=== PATIENT | female | born 2000 | race Caucasian/White ===

== ENCOUNTER 2019-10-21 20:56 | Observation (INO) | payer OTHER, SELFPAY ==
[2019-10-21 22:23] VITALS: BP 120/64; PULSE 83
[2019-10-21 23:05] LABS: Add Urine Microscopic? YES; Appearance Urine Cloudy (Clear); Bacteria Urine 1+ /hpf; Bilirubin Urine Negative (Negative); Blood Urine Negative (Negative); Calcium Oxalate Crystals Urine Present /hpf; Color Urine Yellow (Yellow); Glucose Urine UA Negative (Negative); Ketones Urine Negative (Negative); Leukocyte Esterase Ur Negative LEU/UL (Negative); Mucus Urine Rare /lpf; Nitrate Urine Negative (Negative); Protein Urine Negative (Negative); RBC Urine 0-2 /hpf (0-2); Specific Grav Ur 1.017 (1.001-1.035); Squamous Epithelial Cell Urine Occasional /hpf (Few)
--- NOTE | 2019-10-26 17:44 | PM.OBTRLD ---
OB - Triage/Final Diagnosis Visit Information Date of evaluation: 10/21/19 Reason for evaluation: threatened labor Evaluation Laboratory results: Laboratory Tests 10/21/19 22:24 Urine Color Yellow Urine Appearance Cloudy H Urine pH 6.0 Ur Specific [place] 1.017 Urine Protein Negative Urine Glucose (UA) Negative Urine Ketones Negative Ur Blood (Man) Negative Urine Nitrate Negative Urine Bilirubin Negative Urine Urobilinogen 2.0 H Leukocyte Esterase Rfl Negative Urine RBC 0-2 Urine WBC 4-6 H Ur Squamous Epith Cells Occasional Calcium Oxalate Crystal Present Urine Bacteria 1+ H Urine Mucus Rare
== END 2019-10-21 23:50 | disposition home or self-care (01) ==
PROVIDERS: Advanced Practice Midwife; Admitting Provider Obstetrics & Gynecology; Visit Provider Obstetrics & Gynecology
DX: O26.892 Other specified pregnancy related conditions, second trimester (principal); R10.9 Unspecified abdominal pain; Z3A.20 20 weeks gestation of pregnancy
CPT/HCPCS: 81001; G0378; G0379

== ENCOUNTER 2020-02-03 10:05 | Observation (INO) | payer OTHER, SELFPAY ==
[2020-02-03] VITALS (67 sets, daily range): BP systolic 121–133; BP diastolic 72–88; PULSE 86–119; O2SAT 99–100; BMI 34.0
--- NOTE | 2020-02-03 11:19 | OBADM ---
This patient, Niki Holly, admitted to the OB room OB Post 113 for observation. Patient/family oriented to hospital policies and general routines including ID bracelet, bed and alarms, visiting hours, pain management, procedures, bathroom and other care routines, personal items, smoking policy, room service/diet, and visiting hours. Patient/Family are encouraged to report perceived risks to care and to ask questions if they do not understand what they are told or what they should do.
--- NOTE | 2020-02-03 11:19 | PC.NURSE ---
1051-'s office called for consult, they will call the SR RISK MANAGEMENT CONSULTANT sediment remediation consultant.
--- NOTE | 2020-02-03 11:24 | PC.NURSE ---
Elma BRUNNER for called for information on pt. Stated someone from their office will be by today to evaluate pt.
--- NOTE | 2020-02-03 11:40 | PC.NURSE ---
1005-Pt came in from home stating she has had a headache off and on since yesterday, she took one dose of tylenol yesterday morning and has c/o elevated heart rate up to the 140's that last for up to 5 minutes at a time.
--- NOTE | 2020-02-03 11:47 | PC.NURSE ---
1036- called,informed pt came in c/o headache and elevated heart rate intermittently. Orders received to give fioricet for headache and consult cardiology.
--- NOTE | 2020-02-03 13:10 | ECG_ITS ---
Measurements Intervals [place] Rate: 101 P: 60 RI: 161 QRS: 75 QRSD: 85 T: 2 QT: 332 QTc: 431 Interpretive Statements SINUS TACHYCARDIA INCOMPLETE RIGHT BUNDLE BRANCH BLOCK MINIMAL Q WAVES- INFERIOR LEADS BORDERLINE ST-T WAVE ABNORMALITY- ANT/INF LEADS BORDERLINE ECG Electronically Signed On 02-03-2020 14:29:24 WATERSHED TENDER by Taj Arredondo D.O.
--- NOTE | 2020-02-03 13:20 | PC.NURSE ---
Dr. Sam at bedside evaluating pt. Orders received.
[2020-02-03 13:50] LABS: Hematocrit 30.4 % (37.0-47.0); Hemoglobin 9.9 g/dL (12.0-15.0); Mean Corpuscular HGB Conc 32.6 g/dl (32-36); Mean Corpuscular Hemoglobin 29.6 pg (26-34); Mean Platelet Volume 10.2 fl (7.4-10.4); Platelet Count Result 269 k/mm3 (150-375); Red Blood Count 3.34 M/mm3 (4.2-5.4); Red Cell Distribution Width 13.1 % (11.5-14.5); White Blood Count 14.9 K/mm3 (4.5-10.0)
--- NOTE | 2020-02-03 14:20 | PC.NURSE ---
Bedside EKG performed.
--- NOTE | 2020-02-03 14:22 | PM.CNCAR ---
Assessment and Plan Additional Plan 19-year-old female with: Occasional palpitations likely has symptomatic sinus tachycardia as a functional consequence of her 3rd trimester of . Cardiac physical exam is unremarkable other than flow murmur related to a increased cardiac output. Twelve lead electrocardiogram is unremarkable. She is mildly anemic as mentioned above. At this point I do not feel compelled to place her on a beta-bhumika in this situation. If she continues to have symptoms like this after delivery of her child then further monitoring of her rhythm should be considered. At this point there are no additional cardiac recommendations and she can be safely discharged back to home. Santino Sam MD [facility] History of Present Illness History of Present Illness Consult date/time: 02/03/20 14:22 Reason For Visit: headaches,elevated hr,contractions Narrative: This is a 19-year-old female that I am seeing at the request of the OB service this afternoon because of tachycardia. Patient is currently 35 weeks gestation with her 1st child who she is expecting a boy a to be born in the next several weeks. She has not had any cardiac problems in the past and actually has been enjoying relatively good health she does not have any ongoing chronic medical problems of which she is been made aware. Specifically denies any history of hypertension diabetes hyperthyroidism or significant anemia. She states that she has been having symptoms where she will notice this tachycardia and palpitations. She has an [employer] watch that records her heart rate but not an EKG rhythm strip. She has times when her heart rate is in the 120-140 beats per minute according her Apple watch that created her to have concern is so she was admitted to the Ob room this morning for observation. She has not had any significant symptoms since being hot in room 113. The vital signs are chart show her heart rate to be in the 90s to the whole time she has been here for the last several hours. I had a knee electrocardiogram run which demonstrates sinus tachycardia, otherwise a normal tracing. CBC shows her to be mildly anemic with a hemoglobin of 9.9 g. 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 Review of Systems Constitutional: Constitutional: Reports no additional constitutional complaints Eyes: Eyes: Reports no additional eye complaints ENT: Reports system reviewed and no additional complaints, except as documented Cardiovascular: Cardiovascular: Reports as per HPI Comments: Occasional episodes of palpitations and tachycardia Respiratory: Respiratory: Reports no additional respiratory complaints Gastrointestinal: Gastrointestinal: Reports no additional gastrointestinal complaints Musculoskeletal: Musculoskeletal: Reports no additional musculoskeletal complaints Neurologic: Reports system reviewed and no additional complaints, except as documented Hematologic/Lymphatic: Hematologic/Lymphatic: Reports no additional hematologic/lymphatic complaints Allergic/Immunologic: Allergic/Immunologic: Reports no additional allergic/immunologic complaints Meds Home Medications and Allergies Allergies Allergy/AdvReac Type Severity Reaction Status Date / Time No Known Allergies Allergy Verified 02/03/20 10:53 Vital Signs Vital Signs - 24 hr 02/03/20 10:26 02/03/20 10:30 02/03/20 10:31 Pulse Rate 107 H Blood Pressure 128/76 Pulse Oximetry 99 100 02/03/20 10:36 02/03/20 10:41 02/03/20 10:45 Pulse Rate 100 Blood Pressure 133/88 Pulse Oximetry 100 100 02/03/20 10:46 02/03/20 10:51 02/03/20 10:56 Pulse Rate Blood Pressure Pulse Oximetry 100 100 100 02/03/20 11:00 02/03/20 11:01 02/03/20 11:06 Pulse Rate 92 Blood Pressure 131/74 Pulse Oximetry 100 99 02/03/20 11:11 02/03/20 11:15 02/03/20 11:16 Pulse Rate 96 Blood P
--- NOTE | 2020-02-26 19:37 | PM.DS ---
DS: Admitting Diagnosis Admitting Diagnosis Admitting Diagnosis: tachycardia, DS: Discharge Diagnosis Discharge Diagnosis (1) Tachycardia: Code(s): R00.0 - Tachycardia, unspecified Status: Acute (2) Third trimester : Code(s): Z34.93 - Encounter for supervision of normal , unspecified, third trimester Status: Acute DS: Summary Hospital Course Reason for hospitalization: tachycardia, 3rd trimester Hospital Course: patient was admitted to Labor and delivery for tachycardia, monitoring, and cardiac consultation. She was seen by Cardiology. She was discharged within 24 hours Status at Discharge Functional status at discharge: independent ambulation Time Spent with Patient Time attestation: Total time spent providing and/or coordinating discharge services: Time spent: Less than 30 minutes Discharge Plan Discharge Consulting providers: Bandar Armstrong ; Taj Arredondo ; Santino Sam Discharging Clinician: Devan Pate Patient Disposition: Home, Self-Care Activity: as tolerated Diet: regular Discharge Instructions: OB ANTEPARTUM DISCHARGE INSTRUCTIONS This information is given to help you properly care for yourself at home after your discharge from the hospital. Follow these instructions until your doctor tells you otherwise. DIET: Eat Three Well Balanced Meals per Day Additional Diet Instructions: ACTIVITY: As Tolerated Additional Activity Instructions: RETURN TO LABOR AND DELIVERY IF YOU HAVE: Any Change In Baby's Normal Movement Pattern Any Leakage of Fluid Contractions 3-5 Minutes Apart with Increasing Intensity Vaginal Bleeding Additional Reasons to Return to Labor and Delivery: Contractions may feel like abdominal pain, tightening, cramping, pressure, back ache, or thigh ache. 24 Hour Urine Collection: Continue 24 hour urine collection until at . When collection is completed, return specimen to the [facility]. See handout for 24 hour urine collection. OTHER INSTRUCTIONS: FOLLOW-UP CARE: Keep Next Scheduled Appointment To see in/on Valuables released to patient or family? N/A Medications from home returned to patient? N/A I Acknowledge Receipt of and Understand the Above Instructions IF YOU HAVE ANY QUESTIONS REGARDING THESE INSTRUCTIONS, PLEASE CALL [phone]. IF PROBLEMS ARISE, CALL YOUR PROVIDER. IF EMERGENCY CARE IS NEEDED, [facility]S EMERGENCY ROOM IS AVAILABLE 24 HOURS A DAY. Stand Alone Forms: General Discharge Information Follow-up/Referrals: Devan Pate MD [Physician] - Discharge Medications: No Action PNV cmb#95-ferrous fumarate-FA [] 28 mg iron- 800 mcg Tablet 1 tablet PO DAILY RF: 0 polysaccharide iron complex 150 mg iron Capsule 150 mg PO DAILY@0800 Qty: 30 RF: 0 ibuprofen 600 mg Tablet 600 mg PO Q6H PRN (Reason: Cramping) Qty: 30 RF: 0 Date of admission: 02/03/20 10:05 Primary Care Provider: PHYSICIAN,FINANCIAL ADMINISTRATIVE ASSISTANT Admitting Provider: Devan Pate Attending physician on admission: Devan Pate Condition: Stable
== END 2020-02-03 15:28 | disposition home or self-care (01) ==
PROVIDERS: Specialist; Admitting Provider Obstetrics & Gynecology; Visit Provider Obstetrics & Gynecology
DX: O26.893 Other specified pregnancy related conditions, third trimester (principal); R00.0 Tachycardia, unspecified; Z3A.35 35 weeks gestation of pregnancy
CPT/HCPCS: 36415; 85027; 93005; A9270; G0378; G0379

== ENCOUNTER 2020-02-20 11:39 | Outpatient (CLI) | payer OTHER, SELFPAY ==
[2020-02-20 12:15] VITALS: BP 122/82; PULSE 99
[2020-02-20 12:27] LABS: Basophils Percent Auto 0.3 % (0.2-1.2); Eosinophils Absolute Auto 0.1 K/mm3 (0-0.3); Eosinophils Percent Auto 0.9 % (0-4.4); Hematocrit 31.8 % (37.0-47.0); Hemoglobin 10.5 g/dL (12.0-15.0); Immature Granulocyte Absolute 0.25 K/mm3 (0.00-0.031); Immature Granulocyte Percent A 1.8 % (0-0.5); Lymphocytes Percent Auto 14.5 % (18.3-44.2); Mean Corpuscular Hemoglobin 30.3 pg (26-34); Mean Corpuscular Volume 91.9 fl (80-100); Mean Platelet Volume 10.2 fl (7.4-10.4); Monocytes Absolute Auto 0.9 K/mm3 (0.1-0.6); Monocytes Percent Auto 6.3 % (2.6-8.5); Neutrophils Absolute Auto 10.5 K/mm3 (1.3-6.7); Neutrophils Percent Auto 76.2 % (45.5-73.1); Platelet Count Result 275 k/mm3 (150-375); Red Blood Count 3.46 M/mm3 (4.2-5.4); Red Cell Distribution Width 14.4 % (11.5-14.5); White Blood Count 13.8 K/mm3 (4.5-10.0)
[2020-02-20 12:31] VITALS: BP 118/76; PULSE 96
[2020-02-20 12:34] LABS: Creatinine Urine 56.2 mg/dL; Total Protein Urine Random 21 mg/dL; Ur Ttl Prot Creatinine Ratio 0.37 mg/mg (0-0.20)
[2020-02-20 12:36] LABS: Add Urine Microscopic? YES; Amorphous Sediment Urine Few; Appearance Urine Cloudy (Clear); Bacteria Urine 4+ /hpf; Bilirubin Urine Negative (Negative); Blood Urine Negative (Negative); Color Urine Red (Yellow); Glucose Urine UA Negative (Negative); Ketones Urine Negative (Negative); Leukocyte Esterase Ur Negative LEU/UL (NEGATIVE); Mucus Urine Rare /lpf; Nitrate Urine Negative (Negative); Protein Urine Negative (Negative); Specific Grav Ur 1.012 (1.001-1.035); Squamous Epithelial Cell Urine Many /hpf (Few); Urobilinogen Urine Negative mg/dL (<2.0)
[2020-02-20 12:37] LABS: Alanine Aminotransferase 12 U/L (4-35); Albumin Level 3.5 g/dL (3.5-5.1); Alkaline Phosphatase 806 U/L (38-126); Anion Gap 3 mmol/L (8-16); Aspartate Amino Transferase 19 U/L (14-36); Bilirubin,Total 0.2 mg/dL (0.2-1.3); Blood Urea Nitrogen 7 mg/dL (7-17); Calcium 9.5 mg/dL (8.4-10.2); Carbon Dioxide 27 mmol/L (22-30); Chloride 104 mmol/L (98-107); Estimated Glomerular Filt Rate > 60; Glucose 74 mg/dL (65-105); Potassium 4.3 mmol/L (3.4-5.0); Sodium 134 mmol/L (137-145); Uric Acid 4.2 mg/dL (2.5-7.5)
[2020-02-20 12:45] VITALS: BP 123/76; PULSE 94
--- NOTE | 2020-02-20 12:46 | PC.NURSE ---
Jamal Gaona notified of of lab results, BP's and reactive tracing. OK to dc home.
[2020-02-20 13:00] VITALS: BP 122/82; PULSE 99
== END 2020-02-20 12:52 | disposition home or self-care (01) ==
LOC: ANHOBOP 11:43 → ANHOBPP 11:45
PROVIDERS: Visit Provider Obstetrics & Gynecology
DX: R10.11 Right upper quadrant pain (principal)
CPT/HCPCS: 36415; 59025; 80053; 81001; 82570; 84156; 84550; 85025; 87086; 99199

== ENCOUNTER 2020-02-22 13:37 | Inpatient (IN) | payer OTHER, SELFPAY ==
[2020-02-22] VITALS (9 sets, daily range): BP systolic 121–133; BP diastolic 75–95; PULSE 87–120; TEMP 36.4–36.9; BMI 36.8
--- OUTSIDE RECORDS SUMMARY | 2020-02-22 13:44 | XMS_ITS ---
:2000 Author Care Team Providers Name Role Phone Bernardino Pate Primary Care Provider Unavailable Allergies Code Code System Name Reaction Severity Status Onset Fish Containing ? ? Active ? Products Medications Name Status Start Date Stop Date ? ? cephalexin 500 mg capsule Completed ? 2019 nitrofurantoin Completed ? 11/17/2019 monohydrate/macrocrystals 100 mg capsule NuvaRing 0.12 mg-0.015 mg/24 hr vaginal Completed 06/17/19 17 01/11/2018 insert 1 vaginal ring by vaginal route every month leave in place for 3 weeks, remove for 1 week + DHA Active ? Not available Slow Release Iron Active ? Not available Problems Name Status Onset Date Source ? Abnormal Weight Gain Unknown 01/02/[address] Concept Unknown 01/02/2016 History Migration of Central Venous Catheter Unknown 02/20/2016 History Laceration of Upper Arm with Foreign Body Unknown 2015 History Combined Oral Contraceptive - Use Unknown 06/16/2016 History Deep Pain on [place] Unknown 12/22/2017 History Test Negative Unknown 12/22/2017 History Infection Screening Unknown 12/22/2017 History Female Genitalia Finding Unknown 12/22/2017 History Syphilis Test Finding Unknown 12/22/2017 History Unknown 08/25/2019 ? Procedures Date Name Performed by ? 01/31/2016 Removal of Implant Information not ligia manriquez
--- OUTSIDE RECORDS SUMMARY | 2020-02-22 13:45 | XMS_ITS | Encounter Summary ---
:2000 Author Reason for Visit OB visit Assessment and Plan 1. Routine care Discussion Note: None recorded.Patient educational handouts: No information available. Plan of Care Reminders Provider Appointments Ob Routine Christina Clemente, 02/29/2020 CNM 1:00PM ? Ob Routine Татьяна Clemente, 03/07/2020 CNM 1:00PM Lab None ? ? recorded. Referral None ? ? recorded. Procedures None ? ? recorded. Surgeries None ? ? recorded. Imaging None ? ? recorded. Medications Name Start Date ? ? + DHA ? Slow Release Iron ? Medications Administered None recorded. Vitals Height Weight BMI Blood Pressure 5 ft 9 in 235 lbs 34.7 kg/m2 121/80 mm[Hg] Results Lab Results None recorded. Allergies Code Code System Name Reaction Severity Onset Fish Containing ? ? ? Products Problems None recorded. Procedures Date Name Performed by ? 01/31/2016 Removal of Implant Information not avai
--- OUTSIDE RECORDS SUMMARY | 2020-02-22 13:45 | XMS_ITS | Encounter Summary ---
:2000 Author Reason for Visit OB visit 30wks 2days Assessment and Plan 1. Routine care 2. Elevated blood-pressure readi ng without diagnosis of hypertension ? unlisted lab - clnt restri brii - roberto pi panel Discussion Note: None recorded.Patient educational handouts: No information available. Plan of Care Reminders Provider Appointments Ob Routine Christina Clemente CNM 02/29/2020 1:00PM ? Ob Routine Татьяна Clemente CNM 03/07/2020 1:00PM Lab Unlisted Maulik p -[facility] Lab 12/28/2019 [facility] ([facility] Pathologists [facility] ) Referral None ? ? recorded. Procedures None ? ? recorded. Surgeries None ? ? recorded. Imaging None ? ? recorded. Medications Name Start Date ? ? + DHA ? Slow Release Iron ? Medications Administered None recorded. Vitals Height Weight BMI Blood Pressure 5 ft 9 in 233 lbs 34.4 kg/m2 141/87 mm[Hg] Results Lab Results Date Name Specimen Result Interpretation Description Value Range Status Address ? 12/27
--- OUTSIDE RECORDS SUMMARY | 2020-02-22 13:45 | XMS_ITS | Encounter Summary ---
[...] BMI Blood Pressure 5 ft 9 in 223 lbs 32.9 kg/m2 118/77 mm[Hg] Results Lab Results None recorded. Allergies Code Code System Name Reaction Severity Onset Fish Containing ? ? ? Products Problems None recorded. Procedures Date Name Performed by ? 01/31/2016 Removal of Implant Information not avai
--- OUTSIDE RECORDS SUMMARY | 2020-02-22 13:45 | XMS_ITS | Encounter Summary ---
:2000 Author Reason for Visit OB visit OB [id number] EDC 03/05/2020 LMP 05/30/2019 Assessment and Plan Assessment Note Patient is _36__weeks . Dis cussed plan. 1. Routine care Discussion Note: None recorded.Patient [...] BMI Blood Pressure 5 ft 9 in 242 lbs 35.7 kg/m2 135/83 mm[Hg] Results Lab Results None recorded. Allergies Code Code System Name Reaction Severity Onset Fish Containing ? ? ? Products Problems None recorded.
--- OUTSIDE RECORDS SUMMARY | 2020-02-22 13:45 | XMS_ITS | Encounter Summary ---
:2000 Author Reason for Visit OB visit OB [id number] EDC 03/05/2020 LMP 05/30/2019 Assessment and Plan 1. Routine care ? unlisted lab - clnt restri az Partha mejia pi panel Discussion Note: None recorded.Patient educational handouts: No information available. Plan of Care Reminders Provider Appointments Ob Routine Christina Clemente CNM 02/29/2020 1:00PM ? Ob Routine Татьяна Clemente CNM 03/07/2020 1:00PM Lab Unlisted Maulik p [facility] Lab 02/15/2020 [facility] Lab (A [facility] Pathologists [facility] ) Referral None ? ? recorded. Procedures None ? ? recorded. Surgeries None ? ? recorded. Imaging None ? ? recorded. Medications Name Start Date ? ? + DHA ? Slow Release Iron ? Medications Administered None recorded. Vitals Height Weight BMI Blood Pressure 5 ft 9 in 247 lbs 36.5 kg/m2 139/86 mm[Hg] Results Lab Results Date Name Specimen Result Interpretation Description Value Range Status Address ? 02/15/2020 Clnt High Wbc 14.1 3.8-11.5 Final [facility]
--- OUTSIDE RECORDS SUMMARY | 2020-02-22 13:45 | XMS_ITS | Encounter Summary ---
:2000 Author Reason for Visit OB visit OB [id number] EDC 03/05/2020 LMP 05/30/2019 Assessment and Plan Assessment Note Patient is _32__weeks . Dis cussed plan. 1. Routine care [...] BMI Blood Pressure 5 ft 9 in 232 lbs 34.3 kg/m2 131/79 mm[Hg] Results Lab Results None recorded. Allergies Code Code System Name Reaction Severity Onset Fish Containing ? ? ? Products Problems None recorded.
--- NOTE | 2020-02-22 14:14 | LDADM ---
This patient, Niki Holly, was admitted to Labor/Delivery/Recovery 108 on 02/22/20 at 13:37. Plans for labor, pain management and were discussed with patient. Patient/family oriented to hospital policies and general routines including ID bracelet, bed and alarms, visiting hours, pain management, procedures, bathroom and other care routines, personal items, smoking policy, room service/diet and guest tray routines, security routines, and visiting hours. Patient/Family are encouraged to report perceived risks to care and to ask questions if they do not understand what they are told or what they should do. See OBIX for further documentation.
[2020-02-22 14:37] LABS: Basophils Absolute Auto 0.1 K/mm3 (0.0-0.1); Basophils Percent Auto 0.4 % (0.2-1.2); Eosinophils Absolute Auto 0.1 K/mm3 (0-0.3); Hematocrit 30.9 % (37.0-47.0); Hemoglobin 10.2 g/dL (12.0-15.0); Immature Granulocyte Absolute 0.23 K/mm3 (0.00-0.031); Lymphocytes Absolute Auto 1.87 K/mm3 (0.9-3.2); Lymphocytes Percent Auto 16.3 % (18.3-44.2); Mean Corpuscular Hemoglobin 29.9 pg (26-34); Mean Corpuscular Volume 90.6 fl (80-100); Mean Platelet Volume 10.5 fl (7.4-10.4); Monocytes Absolute Auto 0.8 K/mm3 (0.1-0.6); Monocytes Percent Auto 6.9 % (2.6-8.5); Neutrophils Absolute Auto 8.4 K/mm3 (1.3-6.7); Neutrophils Percent Auto 73.4 % (45.5-73.1); Platelet Count Result 256 k/mm3 (150-375); Red Blood Count 3.41 M/mm3 (4.2-5.4); Red Cell Distribution Width 14.3 % (11.5-14.5); White Blood Count 11.5 K/mm3 (4.5-10.0)
[2020-02-22 14:52] LABS: Alanine Aminotransferase 12 U/L (4-35); Albumin Level 3.3 g/dL (3.5-5.1); Alkaline Phosphatase 780 U/L (38-126); Anion Gap 6 mmol/L (8-16); Aspartate Amino Transferase 21 U/L (14-36); Bilirubin,Total 0.3 mg/dL (0.2-1.3); Blood Urea Nitrogen 7 mg/dL (7-17); Calcium 9.4 mg/dL (8.4-10.2); Carbon Dioxide 24 mmol/L (22-30); Chloride 105 mmol/L (98-107); Estimated CRCL calculation 201 ml/min; Estimated Glomerular Filt Rate > 60; Glucose 87 mg/dL (65-105); Sodium 135 mmol/L (137-145); Uric Acid 3.9 mg/dL (2.5-7.5)
[2020-02-22] MEDS: DINOPROSTONE 10 MG VAG INSERT VAGINAL (14:55)
--- NOTE | 2020-02-22 16:15 | WPDOBADMIT ---
Obstetrics - Admit Note Admission Note: record reviewed. No pertinent additions to the history and/or any subsequent changes in the physical findings that are not consistent with the expected course of the were found. MIL for GHTN with elevated alkaline phosphate, cervidil Additions to the history and/or subsequent changes in the physical findings follow. None.
--- NOTE | 2020-02-22 16:42 | WPDANESEPP ---
Anes - Eval Pre Procedure Procedure: labor epidural Date/Time: 02/22/20 16:42 Surgeon: marquise Pre Op Diagnosis: Induction of Labor Patient Data Age: 19 Gender: F Height: 1.75 m Weight: 113 kg Last Vital Signs Temp 36.4 C 02/22/20 15:00 Pulse 93 02/22/20 16:30 BP 124/85 02/22/20 16:30 Allergies Allergy/AdvReac Type Severity Reaction Status Date / Time Fish Containing Products Allergy Itching Verified 02/09/20 13:08 Home Medications Medication Instructions Recorded Confirmed Type PNV cmb#95-ferrous fumarate-FA 1 tablet PO DAILY 02/09/20 02/22/20 History [] Laboratory Tests 02/22/20 02/22/20 02/22/20 14:12 14:12 14:12 WBC 11.5 K/mm3 H K/mm3 (4.5-10.0) RBC 3.41 M/mm3 L M/mm3 (4.2-5.4) Hgb 10.2 g/dL L g/dL (12.0-15.0) Hct 30.9 % L % (37.0-47.0) MCV 90.6 fl fl (80-100) MCH 29.9 pg pg (26-34) MCHC 33.0 g/dl g/dl (32-36) RDW 14.3 % % (11.5-14.5) Plt Count 256 k/mm3 k/mm3 (150-375) MPV 10.5 fl H fl (7.4-10.4) Immature Gran % (Auto) 2.0 % H % (0-0.5) Neut % (Auto) 73.4 % H % (45.5-73.1) Lymph % (Auto) 16.3 % L % (18.3-44.2) [place] % (Auto) 6.9 % % (2.6-8.5) Eos % (Auto) 1.0 % % (0-4.4) Baso % (Auto) 0.4 % % (0.2-1.2) Lymph # (Auto) 1.87 K/mm3 K/mm3 (0.9-3.2) [place] # (Auto) 0.8 K/mm3 H K/mm3 (0.1-0.6) Eos # (Auto) 0.1 K/mm3 K/mm3 (0-0.3) Baso # (Auto) 0.1 K/mm3 K/mm3 (0.0-0.1) Abs Immat Gran (auto) 0.23 K/mm3 H K/mm3 (0.00-0.031) Absolute Neuts (auto) 8.4 K/mm3 H K/mm3 (1.3-6.7) Absolute Nucleated RBC 0.0 K/mm3 K/mm3 (0.0-0.012) Nucleated RBC % 0.0 % % (0.0-0.2) Sodium Potassium Chloride Carbon Dioxide Anion Gap BUN Creatinine Estim Creat Clear Calc Estimated GFR Glucose Uric Acid Calcium Total Bilirubin AST ALT Alkaline Phosphatase Total Protein Albumin RPR Pending Blood Type O Positive Antibody Screen Negative 02/22/20 02/22/20 14:12 14:12 WBC RBC Hgb Hct MCV MCH MCHC RDW Plt Count MPV Immature Gran % (Auto) Neut % (Auto) Lymph % (Auto) [place] % (Auto) Eos % (Auto) Baso % (Auto) Lymph # (Auto) [place] # (Auto) Eos # (Auto) Baso # (Auto) Abs Immat Gran (auto) Absolute Neuts (auto) Absolute Nucleated RBC Nucleated RBC % Sodium 135 mmol/L L mmol/L (137-145) Potassium 4.0 mmol/L mmol/L (3.4-5.0) Chloride 105 mmol/L mmol/L (98-107) Carbon Dioxide 24 mmol/L mmol/L (22-30) Anion Gap 6 mmol/L L mmol/L (8-16) BUN 7 mg/dL mg/dL (7-17) Creatinine 0.50 mg/dL L mg/dL (0.7-1.0) Estim Creat Clear Calc 201 ml/min ml/min Estimated GFR > 60 (59 - ) Glucose 87 mg/dL mg/dL (65-105) Uric Acid Cancelled 3.9 mg/dL mg/dL (2.5-7.5) Calcium 9.4 mg/dL mg/dL (8.4-10.2) Total Bilirubin 0.3 mg/dL mg/dL (0.2-1.3) AST 21 U/L U/L (14-36) ALT 12 U/L U/L (4-35) Alkaline Phosphatase 780 U/L H U/L (38-126) Total Protein 7.0 g/dL g/dL (6.3-8.2) Albumin 3.3 g/dL L g/dL (3.5-5.1) RPR Blood Type Antibody Screen Patient hx anesthesia problems: none Family hx anesthesia problems: none PMFSH Past Medical History Medical History (Updated 02/22/20 @ 16:42 by Mattie Ball CRNA)
[2020-02-23] VITALS (261 sets, daily range): BP systolic 99–145; BP diastolic 50–98; PULSE 73–136; TEMP 36.8–38.1; O2SAT 83–100
[2020-02-23] MEDS: fentaNYL CITRATE INJ (*CRX) 100 MCG/2 ML VIAL 50 MCG IV PUSH ×4 (01:04→08:32)
[2020-02-23] MEDS: LACTATED RINGERS 1,000 ML 125 ML IV CONT ×3 (04:12→22:59)
[2020-02-23] MEDS: OXYTOCIN 30 UNITS/NS 500 ML 30 UNITS/500 ML BAG 6 UNITS IV CONT (04:13)
[2020-02-23] MEDS: fentaNYL CITRATE INJ (*CRX) 100 MCG/2 ML VIAL IV PUSH (09:34)
--- NOTE | 2020-02-23 11:07 | P.PNOB_ITS ---
OB - PN: Subj Subjective Date/time seen: 02/23/20 11:07 Reassuring status, reactive, artificial rupture of membranes, clear, Pitocin, epidural, 1.5/80/-2, OB - PN: Obj Data Labs CBC & Chem 7: 02/22/20 14:12 02/22/20 14:12 Labs: Laboratory Results - last 24 hr 02/22/20 02/22/20 02/22/20 14:12 14:12 14:12 WBC 11.5 H RBC 3.41 L Hgb 10.2 L Hct 30.9 L MCV 90.6 MCH 29.9 MCHC 33.0 RDW 14.3 Plt Count 256 MPV 10.5 H Immature Gran % (Auto) 2.0 H Neut % (Auto) 73.4 H Lymph % (Auto) 16.3 L [place] % (Auto) 6.9 Eos % (Auto) 1.0 Baso % (Auto) 0.4 Lymph # (Auto) 1.87 [place] # (Auto) 0.8 H Eos # (Auto) 0.1 Baso # (Auto) 0.1 Abs Immat Gran (auto) 0.23 H Absolute Neuts (auto) 8.4 H Absolute Nucleated RBC 0.0 Nucleated RBC % 0.0 Sodium Potassium Chloride Carbon Dioxide Anion Gap BUN Creatinine Estim Creat Clear Calc Estimated GFR Glucose Uric Acid Cancelled Calcium Total Bilirubin AST ALT Alkaline Phosphatase Total Protein Albumin Blood Type O Positive Antibody Screen Negative 02/22/20 14:12 WBC RBC Hgb Hct MCV MCH MCHC RDW Plt Count MPV Immature Gran % (Auto) Neut % (Auto) Lymph % (Auto) [place] % (Auto) Eos % (Auto) Baso % (Auto) Lymph # (Auto) [place] # (Auto) Eos # (Auto) Baso # (Auto) Abs Immat Gran (auto) Absolute Neuts (auto) Absolute Nucleated RBC Nucleated RBC % Sodium 135 L Potassium 4.0 Chloride 105 Carbon Dioxide 24 Anion Gap 6 L BUN 7 Creatinine 0.50 L Estim Creat Clear Calc 201 Estimated GFR > 60 Glucose 87 Uric Acid 3.9 Calcium 9.4 Total Bilirubin 0.3 AST 21 ALT 12 Alkaline Phosphatase 780 H Total Protein 7.0 Albumin 3.3 L Blood Type Antibody Screen OB - PN A/P Time Spent With Patient Time: Total time spent is greater than 50% in coordination of care (as documented) at patient's floor/unit and/or counseling patient:
[2020-02-23 12:54] LABS: Rapid Plasma Reagin Non-Reactive (NonReactive)
[2020-02-23] MEDS: AMPICILLIN 2 GM/NS 100 ML 2 GM/100 ML BAG IVPB (21:50)
[2020-02-23] MEDS: SODIUM CHLORIDE 0.9% IV 300 ML 600 ML I-UTERINE (23:36)
[2020-02-24] VITALS (121 sets, daily range): BP systolic 93–151; BP diastolic 47–127; PULSE 26–204; RESP 16–18; TEMP 36.8–37.6; O2SAT 89–100
[2020-02-24] MEDS: AMPICILLIN 1 GM/NS 50 ML 1 GM/50 ML BAG IVPB (01:12)
[2020-02-24] MEDS: OXYTOCIN 30 UNITS/NS 500 ML 30 UNITS/500 ML BAG 125 UNITS IV CONT (05:13)
--- NOTE | 2020-02-24 05:17 | PM.OBPRVD ---
OB - Delivery Note Procedure Delivery date: 02/24/20 Procedure: with repair events: Induced HTN Intrapartal events: None Induction method: AROM, per pitocin protocol and per cervidil protocol Delivery monitor: internal uterine Laceration Description: Vaginal - 2nd Degree Delivery repair: vicryl Specimen: Yes Quantitative Blood Loss (ml): 350 Anesthesia type: Epidural Disposition: floor Baby Date of : 02/24/20 Time of : 04:58 Weeks of gestation at delivery: 38 gender: Male Weight (pounds): 7 Weight (ounces): 8 presentation: vertex position: Right Occiput Anterior Placenta delivery description: Spontaneous cord vessel description: 3 Vessels score one minute: 8 score five minutes: 9
[2020-02-24] MEDS: IBUPROFEN 600 MG TABLET PO ×3 (07:15→23:25)
[2020-02-24] MEDS: WITCH HAZEL 40 PADS 1 PAD TOPICAL (07:35)
--- NOTE | 2020-02-24 07:40 | PC.NURSE ---
Patient transferred to post room #291 via wheelchair. Support person present. Oriented to unit, room, information board, rooming in, admission packet and security measures. Patient verbalizes understanding.
--- NOTE | 2020-02-24 08:37 | WPDANLDPN2 ---
Anes-Prog Note L&D Date/Time: 02/24/20 08:37 Comfortable throughout: labor and delivery Neuraxial method: epidural Epidural/Spinal procedure site: clean & non-tender Neuro status: Neuro function grossly intact. Cardiovascular status: normal Respiratory status: normal Airway patency: baseline Mental status: baseline Post-Op hydration status: normal Vital Signs: Last Vital Signs Temp 36.8 C 02/24/20 06:15 Pulse 116 H 02/24/20 07:15 Resp 18 02/24/20 06:15 BP 127/74 02/24/20 07:15 Pulse Ox 98 02/24/20 07:16 Pain score (VAS): 0/10. Patient resting in bed at time of assessment, appears comfortable. Support person at bedside. I/O: Intake & Output 02/23/20 02/24/20 02/24/20 23:59 07:59 15:59 Intake Total 1200 1350 Output Total 445 Balance 1200 905 Post-procedural complaints: none Patient feedback: Patient satisfied with anesthetic care.
[2020-02-24] MEDS: ACETAMINOPHEN 325 MG TABLET 650 MG PO ×2 (16:32→23:25)
[2020-02-24] MEDS: MULTIVIT/MIN/PREN/FOL AC/IRON TABLET 1 TAB PO (16:32)
[2020-02-25] MEDS: ACETAMINOPHEN 325 MG TABLET 650 MG PO (05:00)
[2020-02-25] MEDS: IBUPROFEN 600 MG TABLET PO (05:00)
[2020-02-25 06:06] LABS: Hematocrit 27.2 % (37.0-47.0); Hemoglobin 8.8 g/dL (12.0-15.0)
[2020-02-25] MEDS: DOCUSATE SODIUM 100 MG CAPSULE PO (08:29)
[2020-02-25] MEDS: POLYSACCHARIDE IRON COMPLEX 150 MG CAPSULE PO (08:29)
[2020-02-25 08:30] VITALS: BP 125/74; PULSE 94; RESP 16; TEMP 36.7; O2SAT 98
--- NOTE | 2020-02-25 08:45 | PM.OBPNVD ---
OB - PN: Subj Subjective Date/time seen: 02/25/20 08:45 Patient comments: no complaints baby status: doing well OB - PN: Obj Data Labs CBC & Chem 7: 02/25/20 04:57 02/22/20 14:12 Labs: Laboratory Results - last 24 hr 02/25/20 04:57 Hgb 8.8 L Hct 27.2 L OB - PN A/P Plan day: 1 Plan: routine care and discharge home Time Spent With Patient Time: Total time spent is greater than 50% in coordination of care (as documented) at patient's floor/unit and/or counseling patient: Review of Systems Review of Systems: All systems reviewed & are unremarkable except as noted in HPI and below Exam Const: General: cooperative
[2020-02-25 11:05] LABS: Alanine Aminotransferase 18 U/L (4-35); Alkaline Phosphatase 552 U/L (38-126); Anion Gap 5 mmol/L (8-16); Aspartate Amino Transferase 34 U/L (14-36); Bilirubin,Total 0.2 mg/dL (0.2-1.3); Blood Urea Nitrogen 10 mg/dL (7-17); Calcium 8.7 mg/dL (8.4-10.2); Carbon Dioxide 24 mmol/L (22-30); Chloride 107 mmol/L (98-107); Estimated CRCL calculation 170 ml/min; Estimated Glomerular Filt Rate > 60; Glucose 84 mg/dL (65-105); Potassium 4.2 mmol/L (3.4-5.0); Sodium 136 mmol/L (137-145)
--- NOTE | 2020-02-25 11:35 | PC.NURSE ---
Patient viewed the discharge video Mother & Baby Care, The First Two Weeks . Patient was given the opportunity and encouraged to ask questions. Patient verbalized understanding of information shared and has been given the mother/baby guide for home reference.
--- NOTE | 2020-02-25 13:40 | WPDANLDPN2 ---
Anes-Prog Note L&D Date/Time: 02/25/20 13:40 Comfortable throughout: labor and delivery Neuraxial method: epidural Epidural/Spinal procedure site: clean & non-tender Neuro status: Neuro function grossly intact. Cardiovascular status: normal Respiratory status: normal Airway patency: baseline Mental status: baseline Post-Op hydration status: normal Vital Signs: Last Vital Signs Temp 36.7 C 02/25/20 08:30 Pulse 94 02/25/20 08:30 Resp 16 02/25/20 08:30 BP 125/74 02/25/20 08:30 Pulse Ox 98 02/25/20 08:30 Pain score (VAS): 0/10. Patient up to bedside chair at time of assessment, appears comfortable. Support person at bedside. Post-procedural complaints: none Patient feedback: Patient satisfied with anesthetic care.
[2020-02-27 10:47] VITALS: BP 125/74; PULSE 98; RESP 16; TEMP 37.1; O2SAT 99
--- NOTE | 2020-02-29 07:22 | PM.OBDSVD ---
DS: Admitting Diagnosis Admitting Diagnosis Admitting Diagnosis: labor OB - DS: Summary OB Procedures : None OB Procedures Intrapartum: Spontaneous Vag Delivery OB Procedures: : None Time Spent with Patient Time attestation: Total time spent providing and/or coordinating discharge services: DS: Data Data Completed and Pending Pending studies at discharge: Pending at discharge 02/24/20 06:24 Surgical [PTH] Routine Discharge Plan Discharge Attending physician on discharge: Devna Pate Consulting providers: Татьяна Clemente Discharging Clinician: Татьяна Clemente Patient Disposition: Home, Self-Care Activity: pelvic rest Diet: regular Discharge Instructions: Education: Mom and Baby Guide Given to: Mother Follow-Up: Call your delivering provider's office for an appointment to be seen in: 1 week and 4 Weeks Mom and baby should come to the [facility] for the follow-up appointment. Appointment Date/Time: Thursday, February 27, 2020 at 11:00 a.m. What to expect at your follow-up visit: Blood Pressure Check Physical Assessment Call [phone] if you are unable to keep your appointment time. BREAST CARE: * Wear a snug supportive bra. * For engorgement discomfort: Breast Feeding: * Apply warm moist washcloths * Express milk as needed to relieve engorgement * Wear loose clothing Bottle Feeding: * May apply ice packs EPISIOTOMY/PERINEAL CARE: * Until bleeding stops, use your martha bottle after urinating * Change your pad frequently throughout the day * You may take sitz baths several times a day (fill your bathtub with warm water and soak for 20 minutes.) Do NOT bathe in the water * No tub baths until seen by your physician - You may shower ACTIVITY: * Rest as much as possible. * Do not exercise or lift anything heavier than your baby (such as laundry or other children.) * Avoid stairs or driving as much as possible. * Do not put anything into the vagina. No douching, tampons, or sexual activity until seen by physician. NOTIFY PHYSICIAN IF YOU HAVE ANY QUESTIONS OR IF ANY OF THE FOLLOWING SYMPTOMS OCCUR: * If your perineum becomes red, swollen, or more painful than what you have experienced in the hospital. * If your vaginal bleeding becomes foul smelling. * If your vaginal bleeding becomes more heavy than a period or if your bleeding changes from pink to bright red. However, you may pass an occasional walnut-sized clot once or twice for the first week . * If you experience a sharp, shooting pain in you calves. DIET: * Eat regular, well-balanced meals. * Drink plenty of fluids daily. If , drink to thirst. Stand Alone Forms: General Discharge Information Follow-up/Referrals: Devan Pate MD [Physician] - 4 Weeks (F/U in office at 1 week (blood pressure check) and 4 weeks ) Discharge Medications: New polysaccharide iron complex 150 mg iron Capsule 150 mg PO DAILY@0800 Qty: 30 RF: 0 ibuprofen 600 mg Tablet 600 mg PO Q6H PRN (Reason: Cramping) Qty: 30 RF: 0 Continued PNV cmb#95-ferrous fumarate-FA [] 28 mg iron- 800 mcg Tablet 1 tablet PO DAILY RF: 0 Date of admission: 02/22/20 13:37 Primary Care Provider: PHYSICIAN,BASIN CLEANER Admitting Provider: Devan Pate Attending physician on admission: Devan Pate Condition: Stable
--- NOTE | 2020-02-29 17:33 | PM.OBTRLD ---
OB - Triage/Final Diagnosis Visit Information Date of evaluation: 02/22/20 Reason for evaluation: threatened labor Evaluation Laboratory results: Laboratory Tests 02/22/20 02/22/20 02/22/20 14:12 14:12 14:12 WBC 11.5 H RBC 3.41 L Hgb 10.2 L Hct 30.9 L MCV 90.6 MCH 29.9 MCHC 33.0 RDW 14.3 Plt Count 256 MPV 10.5 H Immature Gran % (Auto) 2.0 H Neut % (Auto) 73.4 H Lymph % (Auto) 16.3 L [place] % (Auto) 6.9 Eos % (Auto) 1.0 Baso % (Auto) 0.4 Lymph # (Auto) 1.87 [place] # (Auto) 0.8 H Eos # (Auto) 0.1 Baso # (Auto) 0.1 Abs Immat Gran (auto) 0.23 H Absolute Neuts (auto) 8.4 H Absolute Nucleated RBC 0.0 Nucleated RBC % 0.0 Sodium Potassium Chloride Carbon Dioxide Anion Gap BUN Creatinine Estim Creat Clear Calc Estimated GFR Glucose Uric Acid Calcium Total Bilirubin AST ALT Alkaline Phosphatase Total Protein Albumin RPR Non-reactive Blood Type O Positive Antibody Screen Negative 02/22/20 02/22/20 02/25/20 14:12 14:12 04:57 WBC RBC Hgb 8.8 L Hct 27.2 L MCV MCH MCHC RDW Plt Count MPV Immature Gran % (Auto) Neut % (Auto) Lymph % (Auto) [place] % (Auto) Eos % (Auto) Baso % (Auto) Lymph # (Auto) [place] # (Auto) Eos # (Auto) Baso # (Auto) Abs Immat Gran (auto) Absolute Neuts (auto) Absolute Nucleated RBC Nucleated RBC % Sodium 135 L Potassium 4.0 Chloride 105 Carbon Dioxide 24 Anion Gap 6 L BUN 7 Creatinine 0.50 L Estim Creat Clear Calc 201 Estimated GFR > 60 Glucose 87 Uric Acid Cancelled 3.9 Calcium 9.4 Total Bilirubin 0.3 AST 21 ALT 12 Alkaline Phosphatase 780 H Total Protein 7.0 Albumin 3.3 L RPR Blood Type Antibody Screen 02/25/20 10:45 WBC RBC Hgb Hct MCV MCH MCHC RDW Plt Count MPV Immature Gran % (Auto) Neut % (Auto) Lymph % (Auto) [place] % (Auto) Eos % (Auto) Baso % (Auto) Lymph # (Auto) [place] # (Auto) Eos # (Auto) Baso # (Auto) Abs Immat Gran (auto) Absolute Neuts (auto) Absolute Nucleated RBC Nucleated RBC % Sodium 136 L Potassium 4.2 Chloride 107 Carbon Dioxide 24 Anion Gap 5 L BUN 10 Creatinine 0.60 L Estim Creat Clear Calc 170 Estimated GFR > 60 Glucose 84 Uric Acid Calcium 8.7 Total Bilirubin 0.2 AST 34 ALT 18 Alkaline Phosphatase 552 H Total Protein 6.0 L Albumin 3.0 L RPR Blood Type Antibody Screen
== END 2020-02-25 14:05 | disposition home or self-care (01) | DRG 806 ==
LOC: ANHLDR 02-23 11:55 → ANHOB2 02-24 07:54
PROVIDERS: Advanced Practice Midwife; Admitting Provider Obstetrics & Gynecology; Visit Provider Obstetrics & Gynecology
DX: O13.4 Gestational [pregnancy-induced] hypertension without significant proteinuria, complicating childbirth (principal); O75.2 Pyrexia during labor, not elsewhere classified; Z37.0 Single live birth; O70.1 Second degree perineal laceration during delivery; O76 Abnormality in fetal heart rate and rhythm complicating labor and delivery; O69.81X0 Labor and delivery complicated by cord around neck, without compression, not applicable or unspecified; Z3A.38 38 weeks gestation of pregnancy
CPT/HCPCS: 36415; 59025; 80053; 81001; 82570; 84156; 84550; 85014; 85018; 85025; 86592; 86850; 86900; 86901; 87086; 88307; 99199; A9270; J0131; J0290; J2590; J2795; J3010; J7030; J7120

== ENCOUNTER 2021-02-13 16:17 | Outpatient (RCR) | payer OTHER, SELFPAY ==
[2021-02-13 17:23] LABS: Beta HCG Quantitative < 2.39 mIU/ML
== END 2021-05-14 23:59 | disposition home or self-care (01) ==
LOC: ANHLAB 16:17
PROVIDERS: Visit Provider Advanced Practice Midwife
DX: Z30.9 Encounter for contraceptive management, unspecified (principal)
CPT/HCPCS: 36415; 84702

== ENCOUNTER 2021-07-01 18:31 | Emergency (ER) | payer OTHER, SELFPAY ==
[2021-07-01 18:45] VITALS: BP 148/83; PULSE 92; RESP 20; TEMP 36.6; O2SAT 99
[2021-07-01] MEDS: RABIES VACCINE (RABAVERT) 2.5 UNITS VIAL IM (21:42)
--- NOTE | 2021-07-01 21:48 | ED.ANIMALBIT ---
HPI - Animal Bite General Chief Complaint: Animal Bite Stated Complaint: Dog Bite Time Seen by Provider: 07/01/21 20:37 Source: patient Mode of arrival: ambulatory History of Present Illness HPI narrative: 21-year-old female presents today with complaints of being bitten by a dog 2 days ago. Patient states she was visiting her grandfather in [place] when she walked down the road to see a dog with her puppies. Per patient the dog was previously owned by a neighbor. The neighbor moved and abandoned the dog about a month ago. Patient went over to see the puppies and padded the puppies. When patient left mother dog was playfully nipping at her. Dog increasingly got more aggressive. Patient with bruising and puncture oren to left upper arm. Patient unsure of vaccine status of dog. Related Data Allergies Allergy/AdvReac Type Severity Reaction Status Date / Time Fish Containing Products Allergy Itching Verified 07/01/21 20:07 Review of Systems Review of Systems: CONSTITUTIONAL: Denies fever, chills, or sweats. EYES: Denies visual changes, redness, or discharge. ENT: Denies rhinorrhea, congestion, sore throat, or otalgia. CARDIOVASCULAR: Denies chest pain, palpitations, or edema. RESPIRATORY: Denies cough or dyspnea. GASTROINTESTINAL: Denies abdominal pain, nausea, vomiting, or diarrhea. GENITOURINARY: Denies dysuria or hematuria. SKIN: Dog bite to left upper arm. Denies rash or itching. MUSCULOSKELETAL: Denies back pain, joint pain, or myalgia. NEUROLOGIC: Denies headache, numbness, dizziness, or weakness. PSYCHIATRIC: Denies anxiety or depression. [facility] Past Medical History Medical History PIH ( induced hypertension) Family History Family History Mother Diabetes 1.5, managed as type 1 Sibling Hypoglycemia Father Eczema Social History Social History Smoking status: Never smoker Substance use: never Gender identity (if verbalized by the patient): Female Spiritual care concerns: No Exam Narrative: GENERAL: Well-appearing, well-nourished, and in no acute distress. HEAD: Normocephalic, atraumatic. EYES: PERRLA and EOMI. ENT: Nares clear, no rhinorrhea or epistaxis. Mucous membranes moist. Oropharynx without tonsillar hypertrophy exudate or other lesions. Bilateral TMs pearly carrasco nonbulging NECK: Supple. No adenopathy or masses. No carotid bruits or JVD CHEST: Clear to auscultation. No respiratory distress. No wheezes rales or rhonchi HEART: Regular rate and rhythm. No murmur heard. Normal peripheral pulses. ABDOMEN: Soft, nontender, nondistended, normal active bowel sounds. EXTREMITIES: Normal range of motion. No edema. SKIN: Ecchymotic area left upper arm with 1 puncture oren. Warm, dry, no rash. NEURO: No focal deficits. Alert and oriented x3. PSYCH: Normal mood and affect. Course Vital Signs Vital signs: Vital Signs Temperature 36.6 C 07/01/21 18:45 Pulse Rate 92 07/01/21 18:45 Respiratory Rate 20 07/01/21 18:45 Blood Pressure 148/83 H 07/01/21 18:45 Pulse Oximetry 99 07/01/21 18:45 Temperature 36.6 C 07/01/21 18:45 Pulse Rate 92 07/01/21 18:45 Respiratory Rate 20 07/01/21 18:45 Blood Pressure 148/83 H 07/01/21 18:45 Pulse Oximetry 99 07/01/21 18:45 MDM - Animal Bite MDM Narrative Medical decision making narrative: HPI as noted. Due to unknown vaccination status will start rabies series. Patient to be discharged with Augmentin and plan follow-up with health department to finish rabies series. Patient in agreement with plan of care. Discharge Plan Discharge Clinical Impression: Bite by animal, Rabies contact Patient Disposition: Home, Self-Care Condition: Stable Instructions: Antibiotic Form, Rabies Vaccine (By injection), Rabies Immune Globulin (By injection), An
[2021-07-01] MEDS: AMOXICILLIN/CLAVULANATE K 875-125 MG TAB 1 TABLET PO (22:00)
== END 2021-07-01 22:01 | disposition home or self-care (01) ==
LOC: ANHED 22:33
PROVIDERS: Emergency Provider Nurse Practitioner Family
DX: S41.152A Open bite of left upper arm, initial encounter (principal); Z29.14 Encounter for prophylactic rabies immune globulin; Z23 Encounter for immunization; W54.0XXA Bitten by dog, initial encounter
CPT/HCPCS: 90375; 90471; 90675; 96372; 99283; A9270

== ENCOUNTER 2022-03-16 12:36 | Emergency (ER) | payer OTHER, SELFPAY ==
--- NOTE | ~2022-03-16 | CT_ITS ---
EXAMINATION: CT abdomen pelvis w con DATE: 03/16/2022 16:34 INDICATION: Epigastric pain TECHNIQUE: Computed tomography (CT) of the abdomen and pelvis was performed with 100 mL Omnipaque-350 intravenous contrast. Automated exposure control and iterative reconstruction technique were employe d. The dose-length product was 1224.64 mGy-cm. COMPARISON: None FINDINGS: Lung bases are clear. Heart size is normal. No pericardial or pleural effusion. Circumferential somew hat edematous-appearing wall thickening at the gastric antrum and around the focal interruption in th e enhancing mucosal pattern which suggests gastritis in the setting of peptic ulcer disease with poss ible shallow erosion. Diffuse hepatic steatosis with focal sparing along the gallbladder fossa. Gallb ladder, spleen, pancreas, bilateral adrenal glands and right kidney are normal. 5 mm low-attenuation likely cyst at the upper pole of the left kidney. Small fat-containing umbilical hernia. Bowels inclu ding appendix are normal. Bladder, anteverted uterus and bilateral adnexa are unremarkable. No free i ntraperitoneal gas or fluid. No pathologically enlarged abdominal or pelvic lymphadenopathy. Bones ar e unremarkable. IMPRESSION: 1. Focal wall thickening suggestive of gastritis at the gastric antrum surrounding what appears to be a shallow erosion suspicious for peptic ulcer disease. 2. Diffuse hepatic steatosis. Reviewed, dictated and finalized at location A. ROLS TECHNICIAN IMPRESSION: 1. Focal wall thickening suggestive of gastritis at the gastric antrum surround ing what appears to be a shallow erosion suspicious for peptic ulcer disease. 2. Diffuse hepatic steatosis.
[2022-03-16 12:54] VITALS: BP 146/77; PULSE 73; RESP 20; TEMP 36.6; O2SAT 100
[2022-03-16 14:13] LABS: Basophils Absolute Auto 0.1 K/mm3 (0.0-0.1); Basophils Percent Auto 0.6 % (0.2-1.2); Eosinophils Absolute Auto 0.2 K/mm3 (0-0.3); Eosinophils Percent Auto 2.2 % (0-4.4); Hematocrit 43.6 % (37.0-47.0); Hemoglobin 14.3 g/dL (12.0-15.0); Immature Granulocyte Absolute 0.04 K/mm3 (0.00-0.031); Immature Granulocyte Percent A 0.4 % (0-0.5); Lymphocytes Absolute Auto 2.44 K/mm3 (0.9-3.2); Lymphocytes Percent Auto 26.9 % (18.3-44.2); Mean Corpuscular HGB Conc 32.8 g/dl (32-36); Mean Corpuscular Hemoglobin 30.5 pg (26-34); Mean Platelet Volume 10.3 fl (7.4-10.4); Monocytes Absolute Auto 0.4 K/mm3 (0.1-0.6); Monocytes Percent Auto 4.1 % (2.6-8.5); Neutrophils Percent Auto 65.8 % (45.5-73.1); Platelet Count Result 341 k/mm3 (150-375); Red Blood Count 4.69 M/mm3 (4.2-5.4); Red Cell Distribution Width 12.1 % (11.5-14.5); White Blood Count 9.1 K/mm3 (4.5-10.0)
[2022-03-16 14:23] LABS: Alanine Aminotransferase 47 U/L (6-35); Albumin Level 4.8 g/dL (3.5-5.1); Alkaline Phosphatase 47 U/L (38-126); Anion Gap 6 mmol/L (8-16); Aspartate Amino Transferase 30 U/L (14-36); Bilirubin,Total 0.3 mg/dL (0.2-1.3); Blood Urea Nitrogen 12 mg/dL (7-17); Calcium 9.3 mg/dL (8.4-10.2); Carbon Dioxide 31 mmol/L (22-30); Chloride 100 mmol/L (98-107); Estimated CRCL calculation 136 ml/min; Estimated Glomerular Filt Rate > 60; Glucose 89 mg/dL (65-110); Lipase 46 U/L (23-300); Potassium 4.1 mmol/L (3.4-5.0); Sodium 137 mmol/L (137-145)
[2022-03-16 14:38] LABS: Appearance Urine Cloudy (Clear); Bilirubin Urine Negative (Negative); Blood Urine Negative (Negative); Color Urine Yellow (Yellow); Glucose Urine UA Negative (Negative); Ketones Urine Negative (Negative); Leukocyte Esterase Ur Negative LEU/UL (Negative); Nitrate Urine Positive (Negative); Protein Urine Negative (Negative); Specific Grav Ur >= 1.030 (1.001-1.035)
[2022-03-16 14:44] LABS: Add Urine Microscopic? YES; Bacteria Urine Trace /hpf; Mucus Urine Rare /lpf; Squamous Epithelial Cell Urine Many /hpf (Few)
--- NOTE | 2022-03-16 15:01 | ED.ABDPAIN ---
HPI - Abdominal Pain General Chief Complaint: Abdominal Pain Stated Complaint: abd pain Time Seen by Provider: 03/16/22 14:33 Source: patient Mode of arrival: ambulatory Limitations: no limitations History of Present Illness HPI narrative: Patient is a 21-year-old female who presents the ED with report of epigastric abdominal pain. Patient reports she developed pain yesterday. The pain has been waxing and waning in intensity. She has not tried anything for the pain. She denies specific aggravating factors. Never had pain like this before. She otherwise denies any symptoms, denies nausea, vomiting, diarrhea, constipation, rectal bleeding, melena, urinary symptoms, fevers, cough or cold sx's. Related Data Allergies Allergy/AdvReac Type Severity Reaction Status Date / Time Fish Containing Products Allergy Itching Verified 07/01/21 20:07 Review of Systems Review of Systems: CONSTITUTIONAL: Denies fever, chills, or sweats. ENT: Denies rhinorrhea, congestion, sore throat, or otalgia. CARDIOVASCULAR: Denies chest pain, palpitations, or edema. RESPIRATORY: Denies cough or dyspnea. GASTROINTESTINAL: See HPI. GENITOURINARY: Denies dysuria or hematuria. All systems reviewed & are unremarkable except as noted in HPI and below PMFSH Past Medical History Medical History (Updated 03/16/22 @ 16:53 by Niki Ventura PA-C) PIH ( induced hypertension) Surgical History Surgical History (Updated 03/16/22 @ 15:06 by Niki Ventura PA-C) No pertinent past surgical history Family History Family History Mother Diabetes 1.5, managed as type 1 Sibling Hypoglycemia Father Eczema Social History Social History Smoking status: Never smoker Substance use: never Gender identity (if verbalized by the patient): Female Spiritual care concerns: No Exam Narrative: GENERAL: Well appearing, obese, non-toxic, in no acute distress. HEAD: Normocephalic, atraumatic. NECK: Supple. No adenopathy, no masses. RESPIRATORY: Airway patent, respirations nonlabored. Clear to auscultation bilaterally, no rales, rhonchi, wheezing. CARDIOVASCULAR: Regular rate and rhythm without murmurs, rubs, or gallops. Peripheral pulses 2+ and equal bilaterally. ABDOMINAL: Soft, mild tenderness in epigastric region, no other tenderness throughout remainder of abdomen, nondistended, no hepatosplenomegaly. Normoactive BS. MUSCULOSKELETAL: Moves all extremities. Strength/ROM intact without gross deformities. SKIN: Warm, dry, normal color. No rashes. NEURO: A&O X3. Speech clear. Cranial nerves II-XII grossly intact. Steady gait. No ataxic movements. PSYCHIATRIC: Appropriate mood and affect. Normal interaction. Course Vital Signs Vital signs: Vital Signs Temperature 97.9 F 03/16/22 12:54 Pulse Rate 73 03/16/22 12:54 Respiratory Rate 03/16/22 12:54 Blood Pressure 146/77 H 03/16/22 12:54 Pulse Oximetry 100 03/16/22 12:54 Oxygen Delivery Room Air 03/16/22 12:54 Temperature 97.9 F 03/16/22 12:54 Pulse Rate 73 03/16/22 12:54 Respiratory Rate 20 03/16/22 12:54 Blood Pressure 146/77 H 03/16/22 12:54 Pulse Oximetry 100 03/16/22 12:54 Oxygen Delivery Room Air 03/16/22 12:54 MDM - Abdominal Pain MDM Narrative Medical decision making narrative: Patient presented to ED with 2-day history of epigastric abdominal pain. Vitals stable upon arrival. Patient with mild epigastric tenderness on exam. Basic labs obtained and unremarkable. No leukocytosis. UA possibly consistent with infection with positive nitrates, 4-6 WBC, many squamous cells. Patient without any urinary symptoms at this time. Discussed UA findings with patient and utilized shared decision making regarding empiric treatment versus waiting for culture. Patient would prefer to wait for urine culture results to determine if
[2022-03-16] MEDS: BELLADONNA ALK/PHENOB ELIX 10 ML, MAG HYDROX/ALUMINUM HYD/SIMETH 30 ML, LIDOCAINE HCL 2... PO (15:33)
[2022-03-16] MEDS: PANTOPRAZOLE SODIUM IV 40 MG VIAL IV PUSH (17:02)
== END 2022-03-16 17:06 | disposition home or self-care (01) ==
PROVIDERS: Emergency Medicine; Emergency Provider Physician Assistant
DX: K27.9 Peptic ulcer, site unspecified, unspecified as acute or chronic, without hemorrhage or perforation (principal); K29.00 Acute gastritis without bleeding; K76.0 Fatty (change of) liver, not elsewhere classified
CPT/HCPCS: 36415; 74177; 80053; 81001; 81025; 83690; 85025; 87077; 87086; 87186; 96365; 96375; 99284; A9270; C9113; J0131; Q9967

== ENCOUNTER 2023-11-06 21:50 | Emergency (ER) | payer OTHER, SELFPAY ==
--- NOTE | ~2023-11-06 | CT_ITS ---
EXAMINATION: CT abdomen pelvis w con DATE: 11/07/2023 03:18 INDICATION: Pancreatitis. TECHNIQUE: Computed tomography (CT) of the abdomen and pelvis was performed with 100 mL Omnipaque 350 intravenous contrast. Automated exposure control and iterative reconstruction technique were employe d. The dose-length product was 763.34 mGy-cm. COMPARISON: CT abdomen and pelvis 03/16/2022 FINDINGS: The visualized portions of the lung bases demonstrate minimal atelectasis. No pleural effus ion. The heart size is normal. No pericardial effusion. There is diffuse hepatic steatosis. Again see n is a 2.2 cm hyperdense mass in left hepatic lobe, likely benign. The gallbladder, spleen, pancreas, adrenal glands, and kidneys are normal. There is a 2.9 cm dominant follicle in left ovary. There are no dilated loops of bowel. The appendix is normal. There are no pathologically enlarged lymph nodes. There is no free intraperitoneal fluid. There is mild lumbar spondylosis. IMPRESSION: 1. Normal pancreas. 2. Diffuse hepatic steatosis. Reviewed, dictated and finalized at location A.
[2023-11-06 22:19] VITALS: BP 123/81; PULSE 84; RESP 16; TEMP 36.6; O2SAT 100
--- NOTE | 2023-11-06 23:51 | PC.NURSE ---
Urine sample in triage bay 2
[2023-11-07 01:58] LABS: Basophils Absolute Auto 0.1 K/mm3 (0.0-0.1); Basophils Percent Auto 0.4 % (0.2-1.2); Eosinophils Absolute Auto 0.1 K/mm3 (0-0.3); Eosinophils Percent Auto 0.4 % (0-4.4); Hematocrit 41.2 % (37.0-47.0); Hemoglobin 13.8 g/dL (12.0-15.0); Immature Granulocyte Percent A 1.7 % (0-0.5); Lymphocytes Absolute Auto 1.67 K/mm3 (0.9-3.2); Lymphocytes Percent Auto 14.2 % (18.3-44.2); Mean Corpuscular HGB Conc 33.5 g/dl (32-36); Mean Corpuscular Hemoglobin 31.1 pg (26-34); Mean Corpuscular Volume 92.8 fl (80-100); Mean Platelet Volume 10.6 fl (7.4-10.4); Monocytes Absolute Auto 0.5 K/mm3 (0.1-0.6); Monocytes Percent Auto 4.2 % (2.6-8.5); Neutrophils Absolute Auto 9.3 K/mm3 (1.3-6.7); Neutrophils Percent Auto 79.1 % (45.5-73.1); Platelet Count Result 292 k/mm3 (150-375); Red Blood Count 4.44 M/mm3 (4.2-5.4); Red Cell Distribution Width 12.4 % (11.5-14.5); White Blood Count 11.8 K/mm3 (4.5-10.0)
[2023-11-07 02:05] LABS: Pregnancy On Board Control Positive; Urine Pregnancy Test Negative
[2023-11-07 02:25] LABS: Add Urine Microscopic? YES; Appearance Urine Cloudy (Clear); Bacteria Urine None Seen /hpf; Bilirubin Urine Negative (Negative); Blood Urine Negative (Negative); Color Urine Yellow (Yellow); Glucose Urine UA Negative (Negative); Ketones Urine Negative (Negative); Leukocyte Esterase Ur Negative LEU/UL (Negative); Need Manual Microscopic Reviewed; Nitrate Urine Negative (Negative); Non Pathogenic Casts 0-2; Protein Urine Negative (Negative); RBC Urine 0-2 /hpf (0-2); Specific Grav Ur 1.004 (1.001-1.035); Squamous Epithelial Cell Urine Moderate /hpf (Few); WBC Urine 0-5 /hpf (0-3)
[2023-11-07 02:27] LABS: Alanine Aminotransferase 107 U/L (6-35); Albumin Level 4.7 g/dL (3.5-5.1); Alkaline Phosphatase 46 U/L (38-126); Anion Gap 11 mmol/L (4-12); Aspartate Amino Transferase 64 U/L (14-36); Bilirubin,Total 0.7 mg/dL (0.2-1.3); Blood Urea Nitrogen 12 mg/dL (7-17); Calcium 9.1 mg/dL (8.4-10.2); Carbon Dioxide 27 mmol/L (22-30); Chloride 98 mmol/L (98-107); Estimated CRCL calculation 113 ml/min; Estimated Glomerular Filt Rate > 60; Glucose 90 mg/dL (65-110); Potassium 3.9 mmol/L (3.4-5.0); Sodium 136 mmol/L (137-145)
[2023-11-07 02:30] LABS: Lipase 2055 U/L (23-300)
--- NOTE | 2023-11-07 03:02 | ED.ABDPAIN ---
HPI - Abdominal Pain General Chief Complaint: Abdominal Pain Stated Complaint: constipation Time Seen by Provider: 11/07/23 02:10 History of Present Illness HPI narrative: This 23-year-old female presenting with abdominal pain. States that she has had intermittent epigastric pain for the last few weeks. States that it has gotten worse over the last couple of days and she feels that she needs to have a large bowel movement and she is unable to. States that she is only passing small amounts of stool which temporarily helps with the pain. No nausea or vomiting. No further complaints. Related Data Allergies Allergy/AdvReac Type Severity Reaction Status Date / Time Fish Containing Products Allergy Itching Verified 07/01/21 20:07 Review of Systems Review of Systems: All systems reviewed & are unremarkable except as noted in HPI and below PMFSH Past Medical History Medical History PIH ( induced hypertension) Surgical History Surgical History No pertinent past surgical history Family History Family History Mother Diabetes 1.5, managed as type 1 Sibling Hypoglycemia Father Eczema Social History Social History Smoking status: Never smoker Substance use: never Gender identity (if verbalized by the patient): Female Spiritual care concerns: No Exam Narrative: GENERAL: Well-appearing, in no acute distress, pleasant cooperative HEAD: Normocephalic, atraumatic. EYES: PERRLA and EOMI. ENT: Mucous membranes moist. NECK: Supple. CHEST: Clear to auscultation. No respiratory distress. HEART: Regular rate and rhythm ABDOMEN: Soft, + tender in left upper and left lower quadrant, no guarding or rebound EXTREMITIES: Normal range of motion. No edema. SKIN: Warm, dry, no rash. NEURO: No focal deficits. Alert and oriented x3. PSYCH: Normal mood and affect. Course Vital Signs Vital signs: Vital Signs Temperature 97.8 F 11/06/23 22:19 Pulse Rate 84 11/06/23 22:19 Respiratory Rate 16 11/06/23 22:19 Blood Pressure 123/81 11/06/23 22:19 Pulse Oximetry 100 11/06/23 22:19 Temperature 97.8 F 11/06/23 22:19 Pulse Rate 68 11/07/23 06:54 Respiratory Rate 18 11/07/23 06:54 Blood Pressure 123/88 11/07/23 06:54 Pulse Oximetry 96 11/07/23 06:54 MDM - Abdominal Pain MDM Narrative Medical decision making narrative: 23-year-old female presenting with abdominal pain. Vitals are stable. Exam remarkable for the above. Blood work with white count of 11.8 [address] lipase of [address]50. CT abdomen pelvis shows no acute abnormalities. No complications related to acute pancreatitis. On re-evaluation, the patient states that she feels much better. She denies pain or nausea. She would like to go home which I think is reasonable. She declines a prescription for Zofran. Advised Tylenol for pain control. Recommend she follows up closely with the provider who prescribed her wegovy. Appropriate return precautions given. Discharged stable condition. Differential Diagnosis Differential diagnosis: Likely abdominal pain, acute appendicitis, constipation, diverticulitis, pancreatitis and small bowel obstruction Medical Records Attestation: I reviewed the patient's medical records. Lab Data Attestation: I reviewed the patient's lab results. 11/07/23 01:50 11/07/23 01:50 Labs: Lab Results 11/07/23 11/07/23 Range/Units 01:50 01:51 WBC 11.8 H (4.5-10.0) K/mm3 RBC 4.44 (4.2-5.4) M/mm3 Hgb 13.8 (12.0-15.0) g/dL Hct 41.2 (37.0-47.0) % MCV 92.8 (80-100) fl MCH 31.1 (26-34) pg MCHC 33.5 (32-36) g/dl RDW 12.4 (11.5-14.5) % Plt Count 292 (150-375) k/mm3 MPV 10.6 H (7.4-10.4) fl Immature Gran %
[2023-11-07] MEDS: SODIUM CHLORIDE 0.9% IV 1,000 ML 999 ML IV CONT (03:05)
[2023-11-07 05:11] VITALS: BP 118/83; PULSE 67; RESP 18; O2SAT 99
[2023-11-07 06:54] VITALS: BP 123/88; PULSE 68; RESP 18; O2SAT 96
== END 2023-11-07 07:39 | disposition home or self-care (01) ==
PROVIDERS: Emergency Provider Emergency Medicine; PCP Nurse Practitioner Adult Health
DX: K85.90 Acute pancreatitis without necrosis or infection, unspecified (principal)
CPT/HCPCS: 36415; 74177; 80053; 81001; 81025; 83690; 85025; 96360; 99284; J7030; Q9967

== ENCOUNTER 2024-02-03 01:33 | Day surgery (SDC) | payer OTHER, SELFPAY ==
--- NOTE | 2024-01-20 14:43 | SUR.PREOP ---
Report to the Outpatient Waiting Room, entrance under the green pavilion located off [facility], at time _0830_ on date _02/03/2024_. Planned Procedure Time: _1030_.? Time changes happen often and if your time is changed the preop area will call you the afternoon before. - You and your visitor will be asked to self-screen and do not enter if you have any COVID symptoms. Please call surgeon if you need to reschedule. - A mask is optional within the hospital at this time. Patients may have clear liquids (water, carbonated beverages, clear teas, apple juice) until 3 hours prior to surgery with a maximum of 20 ounces. - No food from midnight until time of surgery and no smoking. This includes no chewing gum, candy or mints. - Infants may have breast milk until 4 hours before surgery, formula 6 hours prior to surgery. - Children will be allowed to drink immediately following surgery.? If applicable, please bring a bottle or sippy cup to assist with drinking. Juice, water, soda, and popsicles are readily available.? For infants on formula, please bring formula the day of surgery.? Pacifiers are allowed. Take only the following medications with a SIP of water on the morning of surgery: _duloxetine, bupropion_ DO NOT STOP ANY OF YOUR OTHER PRESCRIPTION MEDICATIONS PRIOR TO SURGERY EXCEPT THE FOLLOWING Medications to discontinue per physician _Mary_ Date to take last dose_01/21/24 (takes on )_ Please no make-up, nail slovak, hairspray, perfume, deodorant, or body powder the day of surgery.? No jewelry (including any body piercings) or valuables the day of surgery, leave them at home.? Please take a shower or bath the night before, or the morning of, surgery with an antibacterial soap.? Wear comfortable, loose fitting clothing.? Children are encouraged to wear pajamas. - Jewelry must be removed prior to entering the operating room.? Rings and piercings that are not removed may be cut off. - The hospital will not accept responsibility for valuables.? - Please leave all valuables, including medications, at home the day of surgery. If you are going home after surgery, a licensed show horse driver must drive you home.? - NO public transportation without another adult if you receive anesthesia. - We recommend that an adult stay with you for 24 hours following discharge. - We also recommend that you do not drive, make important decision, drink alcoholic beverages, or take any drugs that were not prescribed by your health care provider for at least 24 hours after your discharge time. For Pediatric surgeries, we recommend two adults accompany the child home. Follow any additional instructions given to you from your surgeon. Telephone instructions given to _Niki_and asked if any additional questions and then verbalized understanding. Patient advised to call surgeon office or pre surgery nurse liaison [phone] if any additional questions.
[2024-01-20 15:00] VITALS: BMI 26.6
[2024-02-03] VITALS (7 sets, daily range): BP systolic 101–125; BP diastolic 60–93; PULSE 59–88; RESP 14–20; TEMP 36.2–36.8; O2SAT 96–100
[2024-02-03] MEDS: KETOROLAC 15 MG/ML VIAL (*BKC) IV PUSH (08:40)
[2024-02-03] MEDS: ACETAMINOPHEN 500 MG TABLET 1000 MG PO (08:40)
--- NOTE | 2024-02-03 09:28 | P.HP_ITS ---
H&P: HPI History of Present Illness Date/Time: 02/03/24 09:28 Chief Complaint: Unwanted fertility Narrative: 23-year-old female who has unwanted fertility. We agreed to perform laparoscopic bilateral salpingectomy. The patient understands the details of the procedure. The procedure has been explained in detail. She understands the risks. She understands that injuries may occur that result in hospitalization, more surgery, and severe illness. She understands risk of hemorrhage and infection. She denies any chest pain or shortness of breath. She denies any nausea, vomiting, fever, chills. Review of Systems Review of Systems: All systems reviewed & are unremarkable except as noted in HPI and below Constitutional: Constitutional: Denies chills, Denies fatigue, Denies fever(s) and Denies weakness Eyes: Eyes: Denies blurry vision, Denies change in vision, Denies loss of peripheral vision, Denies loss of vision, Denies other visual disturbances and Denies eye pain ENT: Denies vertigo, Denies dizziness, Denies hearing loss, Denies mouth pain, Denies nasal obstruction, Denies neck mass and Denies neck pain Cardiovascular: Cardiovascular: Denies chest pain, Denies diaphoresis, Denies syncope, Denies leg edema and Denies dyspnea Respiratory: Respiratory: Denies chest congestion, Denies cough, Denies hemoptysis, Denies dyspnea and Denies wheezing Gastrointestinal: Gastrointestinal: Denies abdominal pain, Denies c onstipation, Denies diarrhea, Denies nausea and Denies vomiting Genitourinary: Genitourinary: Denies hematuria, Denies change in libido, Denies nocturia, Denies genital lesions, Denies flank pain and Denies urinary urgency Musculoskeletal: Musculoskeletal: Denies abnormal gait, Denies back pain, Denies myalgias, Denies arthralgias, Denies joint swelling, Denies muscle weakness and Denies neck pain Integumentary/Breasts: Skin/Breast: Denies swelling, Denies breast pain, Denies breast mass, Denies dry skin, Denies nipple discharge, Denies unusual bruising and Denies jaundice Neurologic: Denies Neuro-related abnormal movements, Denies Abnormal speech present, Denies abnormal gait, Denies behavioral changes, Denies confusion, Denies vertigo, Denies dizziness, Denies syncope, Denies loss of vision, Denies memory loss, Denies convulsions and Denies weakness Psychiatric: Psychiatric: Denies abnormal sleep pattern, Denies behavioral changes, Denies change in libido, Denies confusion, Denies depression, Denies anhedonia and Denies memory loss Endocrine: Endocrine: Reports no additional endocrine complaints, Denies change in libido and Denies fatigue Hematologic/Lymphatic: Hematologic/Lymphatic: Reports no additional hematologic/lymphatic complaints Allergic/Immunologic: Allergic/Immunologic: Reports no additional allergic/immunologic complaints and Denies wheezing PMFSH Past Medical History Medical History PIH ( induced hypertension) Surgical History Surgical History No pertinent past surgical history Family History Family History Mother Diabetes 1.5, managed as type 1 Sibling Hypoglycemia Father Eczema Social History Social History Smoking status: Never smoker Second hand tobacco smoke exposure: No Substance use: current Substance use type: marijuana Other substance usage details: vape pen Last use: 01/20/24 Living arrangements: with family Additional living arrangements comments: with and son Gender identity (if verbalized by the patient): Female Spiritual care concerns: No Meds Home Medications and Allergies Home Medications Medication Instructions Recorded Confirmed Type bupropion HCl 150 mg PO DAILY 01/20/24 02/03/24 History duloxetine 15 mg PO DAILY 01/20/24 02/03/24 History semaglutide (weight loss) 1.7 1.7 mg subcut WEEKLY 01/20/24 02/03/24 History mg/0.75 mL subcutaneous pen injector (Wegovy) spironolactone 100 mg tablet 100 mg PO DAILY 01/20/24 02/03/24 History Allergies Allergy/AdvReac Type Severity Reaction Status Date / Time Fish Containing Products Allergy Itching Verified 02/03/24 08:39 Vital Signs Vital Signs - 24 hr 02/03/24 08:30 Temperature 98.3 F Pulse Rate 66 Respiratory Rate 16 Blood Pressure 102/60 Pulse Oximetry 96 Oxygen Delivery Room Air Exam Const: General: cooperative, healthy appearing, comfortable and no acute distress Orientation/consciousness: oriented to person, oriented to place and oriented to time HENMT: Head: normal to inspection Ears: external ears normal Face/Nose/Sinus: Normal external nose present and normal facial exam Face and sinus: normal facial exam Eyes: General: appearance normal, both eyes and all related structures Neck: Neck: normal visual inspection, trachea midline and supple Resp: Auscultation: clear to auscultation bilaterally, no crackles, no rales, no rhonchi and no wheezes Cardio: Rate: regular rate Rhythm: regular rhythm Heart sounds: no click, no murmurs and no rubs GI: GI Palp: No abdominal tenderness, No Soft to palpation, No Tenderness to palpation present (GI) and No Palpable mass present Auscultation: normal bowel sounds Skin: General skin exam: normal color and no rashes or lesions noted Neuro: General: oriented to person, oriented to place and oriented to time Extrem: General: normal to inspection, no joint enlargement, no clubbing, cyanosis or edema, no pedal edema and no calf tenderness Psych: Appearance: grossly normal Mental Status: mental status grossly normal Speech and movement: Normal speech and movement present Assessment and Plan Assessment and plan (1) Unwanted fertility: Code(s): Z30.09 - Encounter for other general counseling and advice on contraception Status: Acute Assessment and Plan: this patient is a 23-year-old female with unwanted fertility. We have agreed to perform laparoscopic bilateral salpingectomy. She understands risks, benefits, and alternatives. She has completed informed consent process is ready to proceed.
--- NOTE | 2024-02-03 09:29 | WPDHPUPDATE1 ---
History and Physical Update Update Date/Time: 02/03/24 09:29 History and Physical has been reviewed, including an updated exam of the patient. There are NO changes in the patient's condition. Risks, benefits, and alternatives have been discussed and questions answered. Patient agrees to proceed with procedure.
--- NOTE | 2024-02-03 09:36 | WPDANESEPPF ---
Anes - Initial Pre Proc Eval Procedure: Operation Date: 02/03/24 10:30 Proposed Procedures p Bilateral Laparoscopic Salpingectomy - Bernardino Pate MD Date/Time: 02/03/24 09:36 Surgeon: Bernardino Pate MD Pre Op Diagnosis: desires sterilization Patient Data Age: 23 Gender: F Height: 1.75 m Weight: 80.4 kg Last Vital Signs Temp 98.3 F 02/03/24 08:30 Pulse 66 02/03/24 08:30 Resp 16 02/03/24 08:30 BP 102/60 02/03/24 08:30 Pulse Ox 96 02/03/24 08:30 O2 Del Method Room Air 02/03/24 08:30 Allergies Allergy/AdvReac Type Severity Reaction Status Date / Time Fish Containing Products Allergy Itching Verified 02/03/24 08:39 Home Medications Medication Instructions Recorded Confirmed Type bupropion HCl 150 mg PO DAILY 01/20/24 02/03/24 History duloxetine 15 mg PO DAILY 01/20/24 02/03/24 History semaglutide (weight loss) 1.7 1.7 mg subcut WEEKLY 01/20/24 02/03/24 History mg/0.75 mL subcutaneous pen injector (Wegovy) spironolactone 100 mg tablet 100 mg PO DAILY 01/20/24 02/03/24 History Patient hx anesthesia problems: none Family hx anesthesia problems: none Results Review: All pre-operative results and documents have been reviewed as part of the pre-operative evaluation. [facility] Past Medical History Medical History Overweight (BMI 25.0-29.9) Unwanted fertility Surgical History Surgical History No pertinent past surgical history Family History Family History Mother Diabetes 1.5, managed as type 1 Sibling Hypoglycemia Father Eczema Social History Social History Smoking status: Never smoker Second hand tobacco smoke exposure: No Substance use: current Substance use type: marijuana Other substance usage details: vape pen Last use: 01/20/24 Living arrangements: with family Additional living arrangements comments: with and son Gender identity (if verbalized by the patient): Female Spiritual care concerns: No Anes - Eval Final PreProcedure Day of Procedure 02/03/24 09:36 Patient weight: overweight Heart: regular rate and rhythm Lungs: clear to auscultation Airway: Mallampati scale class II Neurological: alert and oriented Last oral intake: >/= 8 hours ASA classification: III Emergent: yes Anesthetic plan: proceed Anesthesia type and monitoring: general ETT and standard monitoring Results Review: All pre-operative results and documents have been reviewed as part of the pre-operative evaluation. Informed Consent: The patient's anesthetic plan and its attendant risks and benefits were discussed with the patient/family/POA. Questions were solicited and answers provided to the satisfaction of the patient/family/POA.
--- NOTE | 2024-02-03 10:32 | P.OP_ITS ---
Procedure Note - Detailed Date of Procedure 02/03/24 Pre-op Diagnosis desires sterilization Post-op Diagnosis Same Procedure Performed Laparoscopic bilateral salpingectomy Surgeon Bernardino Pate MD Anesthesia General Indications Unwanted fertility Findings Normal pelvic anatomy Description of Procedure The patient was taken the operating room. She was prepped and draped in the dorsal lithotomy position after induction of general anesthesia. A 5 mm skin incision was made in the left upper quadrant of the abdominal skin. A 5 mm trocar was inserted the intra-abdominal cavity under direct visualization of the scope. Pneumoperitoneum was achieved. A 5 mm trocar was inserted in the left lower quadrant identical fashion. A 5 mm infraumbilical trocar was inserted in identical fashion as well. The bilateral fallopian tubes were removed. This was done by using a LigaSure cautery. The mesosalpinx adjacent to the tube was cauterized transected with LigaSure. This was initiated in the area the ovary and in a stepwise fashion moved medially to the area of the cornu of the uterus. Once there the fallopian tube was cauterized and transected. This was done in identical fashion on each side. The fallopian tubes were taken out through the left lower quadrant trocar site. The pneumoperitoneum was reduced. The trocars removed. The skin was closed with subcuticular 4 Monocryl and covered with D ermabond. She was taken to cover stable condition. Sponge lap and needle counts were correct x2. Estimated Blood Loss 5 Drains No Packing No Pathology Yes Complications No immediate complications Condition Stable Disposition PACU
[2024-02-03] MEDS: LACTATED RINGERS 1,000 ML 30 ML IV CONT ×2 (10:35)
[2024-02-03 10:57] LABS: Glucose Point of Care 79 mg/dl (65-105)
== END 2024-02-03 12:04 | disposition home or self-care (01) ==
PROVIDERS: PCP Nurse Practitioner Adult Health; Visit Provider Obstetrics & Gynecology
PROC: (CPT 49320; principal; 2024-02-03 10:30)
DX: Z30.2 Encounter for sterilization (principal); F12.90 Cannabis use, unspecified, uncomplicated; Z79.85 Long-term (current) use of injectable non-insulin antidiabetic drugs
CPT/HCPCS: 58661; 82948; 88302; A9270; J1100; J1885; J2003; J2250; J2405; J2704; J3010; J7120

== ENCOUNTER 2024-08-27 17:38 | Emergency (ER) | payer OTHER, SELFPAY ==
--- NOTE | 2024-08-27 17:43 | ECG_ITS ---
Test Date: 2024-08-27 17:59:55 Measurements Intervals [place] Rate: 72 P: 34 RI: 164 QRS: 83 QRSD: 98 T: 42 QT: 367 QTc: 404 Interpretive Statements SINUS RHYTHM INCOMPLETE RIGHT BUNDLE BRANCH BLOCK MINIMAL Q WAVES- INFERIOR LEADS BASELINE ARTIFACT- I, II, III, AVR, AVL, AVF, V1, V4-V6 BORDERLINE ECG No previous ECG available for comparison Electronically Signed On 08-27-2024 20:07:17 CDT by Taj Arredondo D.O.
--- NOTE | 2024-08-27 17:43 | ED.ARRPALP ---
HPI - Arrhythmia/Palpitations General Chief Complaint: Arrhythmia/Palpitations Stated Complaint: heart palpitations Time Seen by Provider: 08/27/24 17:44 Source: patient Mode of arrival: ambulatory Limitations: no limitations History of Present Illness HPI narrative: Niki is a 24-year-old female patient presenting to the clinic today with complaints of heart palpitations x 2 weeks but has been more frequent for the last 2 days. She reports has cardiology appt this week. Has worn a Holter monitor for 1 month and is being worked up for POTS. Symptoms worsen with position changes. Only drinking 1 caffeinated beverage per day. Smokes THC but not tobacco. Denies any chest pain, shortness of breath, visual changes or dizziness. Hx of tubal ligation- LMP 1 month ago. History of anxiety. Related Data Home Medications ?Medication ?Instructions ?Recorded ?Confirmed ?Last Taken ?Type spironolactone 100 mg tablet 100 mg PO DAILY 01/20/24 02/03/24 Unknown History Allergies Allergy/AdvReac Type Severity Reaction Status Date / Time Fish Containing Products Allergy Itching Verified 08/27/24 17:40 Review of Systems Review of Systems: Pertinent positives per HPI. Patient denies any fever, chills, rash, headache, visual changes, dizziness, cough, runny nose, sore throat, shortness of breath, chest pain, palpitations, nausea, vomiting, diarrhea, constipation, abdominal pain, or any urinary issues. [facility] Past Medical History Medical History Overweight (BMI 25.0-29.9) Unwanted fertility Surgical History Surgical History No pertinent past surgical history Family History Family History Mother Diabetes 1.5, managed as type 1 Sibling Hypoglycemia Father Eczema Social History Social History Smoking status: Never smoker Second hand tobacco smoke exposure: No Substance use: current Substance use type: marijuana Other substance usage details: vape pen Last use: 01/20/24 Living arrangements: with family Additional living arrangements comments: with and son Gender identity (if verbalized by the patient): Female Spiritual care concerns: No Comments At the time of my signature, I reviewed and agree with the nursing past medical, surgical, social, and family history. There is no relevant family history pertinent to the patient complaint. Exam Narrative: General: Well-developed, well nourished, in no apparent distress Head: Normocephalic, atraumatic. Cardio: Regular rate and rhythm, s1 and s2 normal, no murmur appreciated. Resp: Clear to auscultation bilaterally, no rhonchi, rales, wheezing or rubs. Extremities: No deformity, no edema, no cyanosis, capillary refill less than 2 seconds, peripheral pulses palpable, strong, and regular. Integumentary: [place], warm, and dry, intact without lesion, no rashes. Course Course Emergency Course: Portions of this record may have been created with voice recognition software. Level of Care: Express Care Visit Vital Signs Vital signs: Vital signs reviewed MDM - Arrhythmia/Palpitations MDM Narrative Medical decision making narrative: At the time of visit patient is resting comfortably on the exam table. Patient appears to be nontoxic. EKG: EKG shows normal sinus rhythm with heart rate of 72 beats per minute without ST elevation, depression, or T-wave inversion. Plan: I suspect patient is having intermittent palpitations. Recommend follow-up with the sed special education teacher this week for further evaluation as scheduled. Supportive measures were discussed with the patient and they voiced understanding discharge instructions and agrees to treatment plan. Return precautions reviewed Differential Diagnosis Differential diagnosis: Likely palpitations, anxiety, sinus tachycardia, artial fibrillation, artial flutter, ventricular premature beats, supraventricular tachycardia, ventricular tachycardia, WPW and other (Pots syndrome) ECG Data EKG #1: Attestation: I personally reviewed and interpreted this ECG as follows: ECG completion date: 08/27/24 ECG completion time: 17:59 Prior ECG tracings: not available for review Interpretation: EKG shows normal sinus rhythm with a heart rate of 72 beats per minute. No ST elevation, depression, or T-wave inversion. [place] interval is 164 milliseconds, QRS durations 98 milliseconds, QT-QTC is 367-392 milliseconds, P-R-T axis is 34 83 42 Discharge Plan Discharge Clinical Impression: Intermittent palpitations Patient Disposition: Home Condition: Stable Instructions: Antibiotic Form, Heart Palpitations (ED) Additional Instructions: EKG shows normal sinus rhythm in the clinic today with a heart rate of 72. No ST elevation, depression, or T-wave inversion noted. Avoid caffeine Stop smoking THC Increase fluids and stay well hydrated Go to the emergency room if your symptoms worsen-he developed heart palpitations with shortness of breath, chest pain, dizziness, feeling faint, or any other concerning symptoms Follow-up with sed special education teacher as scheduled Patient Language: Hungarian Prescriptions: No Action spironolactone 100 mg tablet 100 mg PO DAILY Follow-up/Referrals: William,Rosalba Nunes APRN [Primary Care Provider] - Time of Disposition: 18:04 Quality NIHSS Nursing Documentation ED NIHSS nursing documentation: reviewed/agree
[2024-08-27 18:20] VITALS: BP 132/77; PULSE 84; RESP 12; TEMP 36.4; O2SAT 100
== END 2024-08-27 18:10 | disposition home or self-care (01) ==
PROVIDERS: Emergency Provider Nurse Practitioner Family; PCP Nurse Practitioner Adult Health
DX: R00.2 Palpitations (principal); F12.90 Cannabis use, unspecified, uncomplicated
CPT/HCPCS: 93005; 99213; G0463

== ENCOUNTER 2024-09-01 22:01 | Emergency (ER) | payer OTHER, SELFPAY ==
--- NOTE | ~2024-09-01 | XR_ITS ---
XR chest 2V Ordering provider: Sid Llanes MD History: 24 years Female with . chest pain LEFT SIDE . Comparison: None. FINDINGS: MEDIASTINUM: The cardiac silhouette is not enlarged. LUNGS: No infiltrates, effusions or pneumothorax. OTHER: No free air under the diaphragm. IMPRESSION: No acute cardiopulmonary pathology. Reviewed, dictated and finalized at location A.
--- OUTSIDE RECORDS SUMMARY | 2024-09-01 22:03 | XMS_ITS | Encounter Summary ---
Author Organization [facility] Address [address] [place] [address] Care Team Providers Care Information Engineer Name Role Phone Jojo Silva MD Primary Care Provider [phone] Encounter Details Date Type Department Care Team (Late st Contact Info) Description 07/21/2024 Results Follow-Up [facility] [employer] [place] [address] [place] [address] Jojo Silva MD [address] [place] [address] VITAMIN D 25 HYDROXY, TSH REFLEXIVE, CBC WITH DIFFERENTIAL, Additional followed-up results: 2 Social History Tobacco Use Types Packs/Day Years Used Date Smoking Tobacco: Never Smokeless Tobacco: Never Alcohol Use Standard Drinks/Week Comments Yes 1 (1 standard drink = 0.6 oz pure alcohol) Social, not very often. Once every few months. Comments No Sex and Gender Information Value Date Recorded Sex Assigned at Female 09/29/2022 2:14 PM CDT Legal Sex Female 8:26 AM CDT Gender Identity Female 09/29/2022 2:14 PM CDT Sexual Orientation Straight 11/09/2023 11 :30 AM CDT documented as of this encounter Miscellaneous Notes * Result Encounter Note - Laura Be RN - 07/22/2024 8:26 AM CDT Called patient and relayed message regarding lab results. Patient verbalized understanding. * Result Encounter Note - Laura Be RN - 07/21/2024 8:05 AM CDT Left voicemail for patient to call back regarding lab results. documented in this encounter Plan of Treatment Not on file documented as of this encounter Visit Diagnoses Not on filedocumented in this encounter Care Teams Information Engineer Relationship Specialty Start Date End Date Jojo Silva MD [address] [place] [id number] PCP - General Internal Medicine 08/04/23 documented as of this encounter
--- OUTSIDE RECORDS SUMMARY | 2024-09-01 22:03 | XMS_ITS | Patient Health Record ---
Author Organization [facility] [place] Address [address] [address] Care Team Providers Care Assisted Living Assistant Name Role Phone Fernando Jeffries Unavailable [phone] Allergies Allergen (clinical drug ingredient) Drug/Non Drug Allergy documented on EMR Reaction Allergy Type Onset Date Status fish oils Fish Oil Unknown Drug Allergy Active Reason For Referral No Information Medications Medication SIG (Take, Route, Fr equency, Duration) Notes Start Date End Date Status DULoxetine HCl 60 MG 1 capsule in the mo rning Oral Once a day Active Spironolactone 100 MG Oral; Duration: 90 Days Active Wegovy 1 MG/0.5ML Subcutaneous; Durati on: 28 Days Active Social History Tobacco Use: Social History Observation Description Date Details (start date - stop date) Never Smoker NA - NA Sex Assigned At : Social History Observation Description Sex Assigned At Female Tobacco Control (Standard) Question Answer Notes Tobacco use: Nonsmoker AUDIT-C (Standard) Question Answer Notes Points 2 Interpretation Positive Did you have a drink contain ing alcohol in the past year? Yes How often did you have six o r more drinks on one occasion in the past year? Less than monthly (1 point) How many drinks did you have on a typical day when you were drinking in the past year? 1 or 2 drinks (0 point) How often did you have a dri nk containing alcohol in the past year? Monthly or less (1 point) Vital Signs Heart Rate 65 /min 11/05/2023 Blood pressure diastolic 90 mm Hg 11/05/2023 Weight-kg 91.63 kg 11/05/2023 Blood pressure systolic 127 mm Hg 11/05/2023 Weight 202.0 lbs 11/05/2023 Encounters Encounter Location Date Provider Diagnosis [place], Walkin [address] [place] [address] 11/05/2023 Fernando Clubb ALBERT (generalized anxiety disorder) F41.1 [facility] [address] [place] [address] 11/05/2023 Fernando [facility]b [facility] [address] [place] [address] 11/05/2023 Fernando Clubb [facility] [address] [place] [address] 11/05/2023 Fernando [facility]b [facility] [address] [place] [address] 11/05/2023 Fernando Clubb [facility] [address] [place] [address] 07/05/2024 Fernando Clubb Assessments Encounter Date Diagnosis (ICD Code) Assessment Notes Treatment Notes Treatment Clinical Notes Section Notes 11/05/2023 ALBERT (generalized anxiety disorder) (ICD-10 - F41.1) discussed benefits of psychotherapy. Discussed current medication management. Continue current therapy. Discussed the risks/benefits of this medication Discussed options with patient and recommended repeat treatment given positive response to initial treatment. Medication side effects discussed with the patient Symptoms stable at this time, recommend to follow up with therpapist. 1. Generalized Anxiety Disorder (ALBERT) - Continue Duloxetine 60 mg daily for anxiety management. - Monitor for side effects or changes in anxiety levels. - Patient reports anxiety would be 5/10 without medication, currently 0/10. - Encourage therapy sessions for additional support. 2. Borderline Personality Disorder (BPD) Tendencies - Patient does not meet full criteria for BPD diagnosis. - Recommend reading suggested book on BPD for better understanding. - Encourage group therapy for BPD patients on Wednesdays if desired. 3. Possible Post-Traumatic Stress Disorder (PTSD) - Schedule follow-up to discuss and assess for PTSD. - Patient reports history of family dysfunction and possible trauma. - Encourage therapy for trauma-related support. 4. Autism Spectrum Disorder (ASD) Concerns - Discuss neuropsychological evaluation option at different facility if significantly affecting life. - Patient reports some social awkwardness but working on being more positive and social. 5.. Sleep Disturbances - Encourage consistent sleep schedule. - Patient reports sleeping 9 PM to 5 AM typically. - Monitor effect of Duloxetine on nightmares and sleep quality. 7. Nutrition and Appetite - Monitor appetite changes related to Wegovy use. - Patient reports decreased appetite with Wegovy. - Encourage balanced diet and address concerns with primary care. 8. Therapy and Support - Encourage walk-in sessions with Katlyn and regular therapy schedule. - Recommend considering previous therapist if preferred. 9. Substance Use - Patient reports daily marijuana use (6-gram cartridge lasting ~1 month). - Occasional alcohol use (<= once a month). - No other substance use reported. 10. Additional Concerns - Recent abnormal menstrual cycle (two periods in one month). - History of elevated liver enzymes and insulin resistance, addressed with Wegovy. - Past suicide attempt 11 years ago, no current suicidal ideation. 11/05/2023 Other Learning About Depression Screening material was printed 1. Generalized Anxiety Disorder (ALBERT) - Continue Duloxetine 60 mg daily for anxiety management. - Monitor for side effects or changes in anxiety levels. - Patient reports anxiety would be 5/10 without medication, currently 0/10. - Encourage therapy sessions for additional support. 2. Borderline Personality Disorder (BPD) Tendencies - Patient does not meet full criteria for BPD diagnosis. - Recommend reading suggested book on BPD for better understanding. - Encourage group therapy for BPD patients on Wednesdays if desired. 3. Possible Post-Traumatic Stress Disorder (PTSD) - Schedule follow-up to discuss and assess for PTSD. - Patient reports history of family dysfunction and possible trauma. - Encourage therapy for trauma-related support. 4. Autism Spectrum Disorder (ASD) Concerns - Discuss neuropsychological evaluation option at different facility if significantly affecting life. - Patient reports some social awkwardness but working on being more positive and social. 5.. Sleep Disturbances - Encourage consistent sleep schedule. - Patient reports sleeping 9 PM to 5 AM typically. - Monitor effect of Duloxetine on nightmares and sleep quality. 7. Nutrition and Appetite - Monitor appetite changes related to Wegovy use. - Patient reports decreased appetite with Wegovy. - Encourage balanced diet and address concerns with primary care. 8. Therapy and Support - Encourage walk-in sessions with Katlyn and regular therapy schedule. - Recommend considering previous therapist if preferred. 9. Substance Use - Patient reports daily marijuana use (6-gram cartridge lasting ~1 month). - Occasional alcohol use (<= once a month). - No other substance use reported. 10. Additional Concerns - Recent abnormal menstrual cycle (two periods in one month). - History of elevated liver enzymes and insulin resistance, addressed with Mary. - Past suicide attempt 11 years ago, no current suicidal ideation. Plan Of Treatment Pending Test Test Name Order Date UDT 11/05/2023 Insurance Providers Payer Name Payer Address Payer Phone Subscriber Number Group Number Insured Name Patient Relationship to Insured Coverage Start Date Coverage End Date [facility] [address] [place] [address] [id number] Niki Holly Self - patient is the insured Medical (General) History Medical History History ICD Code Past Psychiatric History: Anxiety Disord er abdominal aortic aneurysm: No atrial fibrillation: No chronic fatigue syndrome: No essential tremor: No hyperlipidemia: No hypertension: No Parkinson's disease: No restless leg syndrome: No stroke: No subdural hematoma: No type 1 diabetes mellitus: No type 2 diabetes mellitus: No vitamin B12 deficiency: No vitamin D deficiency: No
--- OUTSIDE RECORDS SUMMARY | 2024-09-01 22:04 | XMS_ITS | Clinical Summary ---
Author Organization [facility] [place] Address [address] [place] [address] Care Team Providers Care Evaluator Name Role Phone Jojo Silva MD Primary Care Provider [phone] Allergies Active Allergy Reactions Criticality Noted Date Comments Fish Containing Products Hives,Unknown High 12/19/19 21 Medications spironolactone (ALDACTONE) 100 mg tablet Take 100 mg by mouth daily. 09/01/2023 Active triamcinolone acetonide (KENALOG) 0.1 % Cream Apply to affected area. 12/14/2023 Active buPROPion HCL (WELLBUTRIN XL) 300 mg Extended Release 24 hour tablet Take 300 mg by mouth daily in the morning. BELIA Jauregui. Psych. 03/12/2024 Active OXcarbazepine (TRILEPTAL) 300 mg tablet Take 300 mg by mouth 2 times daily. Per [facility] team. 04/02/2024 Active desvenlafaxine (PRISTIQ) 50 mg Extended Release 24 hour tablet Take 50 mg by mouth daily in the morning. 05/29/2024 Active omeprazole (PriLOSEC) 20 mg Capsule, Delayed Release(E.C.) Take 1 Capsule (20 mg) by mouth daily. 30 Capsule 06/27/2024 Active Active Problems Problem Noted Date Diagnosed Date MTHFR gene mutation 04/18/2024 Thyroid function test abnormal 02/11/2024 Hepatic steatosis 09/01/2023 Insulin resistance 08/04/2023 Obesity (BMI 30-39.9) 08/04/2023 Adjustment disorder with mixed anxiety and depre ssed mood 10/30/2021 Overview (04/05/2024): Treated per psychiatry Atopic eczema Resolved Problems Problem Noted Date Diagnosed Date Resolved Date Abnormal urine 02/11/2024 04/05/2024 Elevated liver enzymes 08/04/202308/31 Overview (08/04/2023): pt reports fatty liver on CT abd 2022 [facility] Encounters Date Type Department Care Team Description 08/30/2024 External Device Data [facility] Provider, Abstract 08/30/2024 Patient Self-Triage [facility] [address] [place] [address] 08/23/2024 External Device Data [facility] [place] Provider, Abstract 08/16/2024 External Device Data [facility] [place] Provider, Abstract 07/26/2024 External Device Data [facility] [place] Provider, Abstract 07/22/2024 External Device Data [facility] [place] Provider, Abstract 07/21/2024 Results Follow-Up [facility] [address] [place] [address] Jojo Silva MD VITAMIN D 25 HYDROXY, TSH REFLEXIVE, CBC WITH DIFFERENTIAL, Additional followed-up results: 2 07/20/2024 External Device Data [facility] Provider, Abstract 07/19/2024 8:20 AM CDT Procedure visit [facility] [place] [address] [place] [address] Screening for condition; Thyroid function test abnormal 07/19/2024 External Device Data [facility] [place] Provider, Abstract 06/27/2024 10:00 AM CDT Office Visit [facility] [address] [place] [address] Rosalba Thomas, VICKI Hunger pain, initial encounter (Primary Dx); Positional lightheadedness; Adjustment disorder with mixed anxiety and depressed mood; Overweight (BMI 25.0-29.9) 06/14/2024 External Device Data [facility] Provider, Abstract from Last 3 Months Immunizations Immunization Administration Dates Next Due (COMIRNATY)(12 YR UP) COVID- 19 VACCINE, MRNA, SPIKE PROTEIN, LNP, KEELY(PF) 30 MCG/0.3 ML IM SUSP 12/17/2023 (GARDASIL 9)(9-45 YRS) HUMAN PAPILLOMAVIRUS VACCINE, TYPES 6, 11, 16, 18, 31, 33, 45, 52, 58, NONAVALENT (9VHPV), 2 OR 3 DOSE, IM 04/24/2024 (TWINRIX)(18 YRS UP) HEPATIT IS A AND HEPATITIS B VACCINE ADULT, 1 ML, IM 04/24/2024 INFLUENZA VACCINE QUADRIVALENT 6 MOS UP IM 12/13 INFLUENZA VACCINE QUADRIVALENT 6 MOS UP PF IM INFLUENZA VACCINE QUADRIVALENT RECOMB 18 YR UP P F IM 12/17/2023 Family History Medical History Relation Name Comments Unknown Brother Depression Father Kenna Lyons Unknown Maternal Grandfather Breast Cancer Maternal Grandmother Gabriela Diana Colon Cancer Maternal Grandmother Gabriela Diana Liver Cancer Maternal Grandmother Gabriela Diana Diabetes Mother Gabriela Diana Stroke Mother Gabriela Miller [place] Unknown Paternal Grandfather Unknown Paternal Grandmother No Known Problems Son Relation Name Status Comments Brother Alive Father Kenna Metzger Alive Maternal Grandfather Maternal Grandmother Gabriela Diana Mother Gabriela Diana Alive Paternal Grandfather Paternal Grandmother Son Alive Social History Tobacco Use Types Packs/Day Years Used Date Smoking Tobacco: Never Smokeless Tobacco: Never Tobacco Cessation:Counseling Given: Not Answered Alcohol Use Standard Drinks/Week Comments Yes 1 (1 standard drink = 0.6 oz pure alcohol) Social, not very often. Once every few months. Comments No Sex and Gender Information Value Date Recorded Sex Assigned at Female 09/29/2022 2:14 PM CDT Legal Sex Female 8:26 AM CDT Gender Identity Female 09/29/2022 2:14 PM CDT Sexual Orientation Straight 11/09/2023 11 :30 AM CDT Last Filed Vital Signs Vital Sign Reading Time Taken Comments Blood Pressure 112/62 06/27/2024 9:55 AM CDT Pulse 94 06/27/2024 9:55 AM CDT Temperature 36.9 C (98.5 F) 06/27/2024 9:55 AM CDT Respiratory Rate 16 06/27/2024 9:55 AM CDT Oxygen Saturation 98% 06/27/2024 9:55 AM CDT Inhaled Oxygen Concentration - - Weight 81.2 kg (179 lb) 06/27/2024 9:55 AM CDT Height 171.5 cm (5' 7.5) 06/27/2024 9:55 AM CDT Body Mass Index 27.62 06/27/2024 9:55 AM CDT Plan of Treatment Health Maintenance Due Date Last Done Comments HPV/Cotest (-) 2020 CERVICAL CANCER SCREENING 11/20/2023 PAP SMEAR 11/20/2023 11/19/2020 Preventative Visit- Commercial 03/02/2024 11/19/2020 , 10/29/2018 HEPATITIS B VACCINES (2 of 3 - Hep B Twinrix 3-dose series) 05/22/2024 04/24/2024 HPV VACCINES (2 - 3-dose series) 05/22/2024 04/24/19 INFLUENZA VACCINE (#1) 2024 , 11/30/2019, 12/13/2018 DTAP/TDAP/TD VACCINES (2 - T d or Tdap) 08/03/2030 08/03/2020 COVID-19 Vaccine Completed 12/17/2023 Procedures Procedure Name Priority Date/Time Associated Diagnosis Comments LIPID PANEL Routine 07/19/2024 8:14 AM CDT Screening for condition COMPREHENSIVE METABOLIC PANEL Routine 07/19/2024 8:14 AM CDT Screening for condition CBC WITH DIFFERENTIAL Routine 07/19/2024 8:14 AM CDT Screening for condition TSH REFLEXIVE Routine 07/19/2024 8:14 AM CDT Screening for condition Thyroid function test abnormal VITAMIN D 25 HYDROXY Routine 07/19/2024 8:14 AM CDT Screening for condition from Last 3 Months Results * TSH REFLEXIVE (07/19/2024 8:14 AM CDT) TSH 1.33 mIU/L [facility] Comment: Reference Range > or = 20 Years 0.40-4.50 Ranges First trimester 0.26-2.66 Second trimester 0.55-2.73 Third trimester 0.43-2.91 Test Performed at: [facility] [address] [place] [address] Linn Livingston Blood 07/19/2024 8:14 AM CDT 07/20/2024 3:04 AM CDT us Jojo Silva MD CHEMISTRY ORDERABLES Final Res ult [facility] [phone] [facility] [address] [place] [address] * (ABNORMAL) CBC WITH DIFFERENTIAL (07/19/2024 8:14 AM CDT) WBC 7.4 3.8 - 10.8 Thousand/ uL [facility] RBC 3.96 3.80 - 5.10 Million/u L [facility] [place] HEMOGLOBIN 12.4 11.7 - 15.5 g/dL [facility] HEMATOCRIT 39.2 35.0 - 45.0 % [facility] MCV 99.0 80.0 - 100.0 fL [facility] MCH 31.3 27.0 - 33.0 pg [facility] MCHC 31.6(L) 32.0 - 36.0 g/dL [facility] Comment: For adults, a slight decrease in the calculated MCHC value (in the range of 30 to 32 g/dL) is most likely not clinically significant; however, it should be interpreted with caution in correlation with other red cell parameters and the patient's clinical condition. RDW 11.6 11.0 - 15.0 % [facility] PLATELETS 288 140 - 400 Thousand/ uL [facility] MPV 10.4 7.5 - 12.5 fL [facility] NEUTROPHIL ABSOLUTE 5,010 1,500 - 7,800 cells/uL [facility] LYMPHOCYTE ABSOLUTE 1,880 850 - 3,900 cells/uL [facility] MONOCYTE ABSOLUTE 348 200 - 950 cells/uL [facility] EOSINOPHIL ABSOLUTE 133 15 - 500 cells/uL [facility] BASOPHILS ABSOLUTE 30 0 - 200 cells/uL [facility] NEUTROPHIL 67.7 % [facility] LYMPHOCYTES 25.4 % [facility] MONOCYTE 4.7 % [facility] EOSINOPHILS 1.8 % [facility] BASOPHILS 0.4 % [facility] Comment: Test Performed at: [facility] [address] [place] [address] Linn Livingston Blood 07/19/2024 8:14 AM CDT 07/20/2024 3:04 AM CDT us Jojo Silva MD HEMATOLOGY ORDERABLES Final Re sult [facility] [phone] [facility] [address] [place] [address] * VITAMIN D 25 HYDROXY (07/19/2024 8:14 AM CDT) VITAMIN D, 25 OH, TOTAL 35 30 - 100 ng/mL [facility] Comment: Vitamin D Status 25-OH Vitamin D: Deficiency: <20 ng/mL Insufficiency: 20 - 29 ng/mL Optimal: > or = 30 ng/mL For 25-OH Vitamin D testing on patients on D2-supplementation and patients for whom quantitation of D2 and D3 fractions is required, the [facility]() 25-OH VIT D, (D2,D3), LC/MS/MS is recommended: order code [id number] (patients >2yrs). See Note 1 Note 1 For additional information, please refer to http://education.Youxiduo/faq/LFO509 (This link is being provided for informational/ educational purposes only.) Test Performed at: [facility] [address] [address] [place] [address] Linn Livingston MD Blood 07/19/2024 8:14 AM CDT 07/20/2024 3:03 AM CDT us Jojo Silva MD CHEMISTRY ORDERABLES Final Res ult [facility] [phone] [facility] [address] [address] [address] * LIPID PANEL (07/19/2024 8:14 AM CDT) CHOLESTEROL 125 <200 mg/dL [facility] HDL 50 > OR = 50 mg/dL [facility] TRIGLYCERIDE 61 <150 mg/dL [facility] LDL CALCULATED 61 mg/dL (calc) [facility] Comment: Reference range: <100 Desirable range <100 mg/dL for primary prevention; <70 mg/dL for patients with CHD or diabetic patients with > or = 2 CHD risk factors. LDL-C is now calculated using the Anabella calculation, which is a validated novel method providing better accuracy than the Friedewald equation in the estimation of LDL-C. Bryn HAYNES et al. MERCY. 2013;310(19): 6096-1592 (http://education.Youxiduo/faq/CUG711) CHOL/HDL RATIO 2.5 <5.0 (calc) [facility] NON-HDL CHOLESTEROL 75 <130 mg/dL (calc) [facility] Comment: For patients with diabetes plus 1 major ASCVD risk factor, treating to a non-HDL-C goal of <100 mg/dL (LDL-C of <70 mg/dL) is considered a therapeutic option. Test Performed at: [facility] [address] [place] [address] AnahiGloria Price Blood 07/19/2024 8:14 AM CDT 07/20/2024 3:04 AM CDT us Jojo Silva MD CHEMISTRY ORDERABLES Final Res ult [facility] [phone] [facility] [address] [place] [address] * COMPREHENSIVE METABOLIC PANEL (07/19/2024 8:14 AM CDT) GLUCOSE 79 65 - 99 mg/dL [facility] Comment: Fasting reference interval BUN 15 7 - 25 mg/dL [facility] CREATININE 0.77 0.50 - 0.96 mg/dL [facility] GFR 110 > OR = 60 mL/min/1. 73m2 [facility] BUN/CREAT RATIO SEE NOTE: 6 - 22 (calc) [facility] Comment: Not Reported: BUN and Creatinine are within reference range. SODIUM 136 135 - 146 mmol/L [facility] [place] POTASSIUM 3.9 3.5 - 5.3 mmol/L [employer] [facility] [place] CHLORIDE 100 98 - 110 mmol/L [facility] Jaime [facility] [place] CO2 27 20 - 32 mmol/L [facility] [place] CALCIUM 9.1 8.6 - 10.2 mg/dL [facility] TOTAL PROTEIN 7.4 6.1 - 8.1 g/dL [facility] ALBUMIN 4.5 3.6 - 5.1 g/dL [facility] GLOBULIN 2.9 1.9 - 3.7 g/dL (calc) [facility] ALBUMIN/GLOBULIN RATIO 1.6 1.0 - 2.5 (calc) [facility] BILIRUBIN TOTAL 0.4 0.2 - 1.2 mg/dL [facility] ALKALINE PHOSPHATASE 44 31 - 125 U/L [facility] AST 15 10 - 30 U/L [facility] ALT 14 6 - 29 U/L [facility] Comment: Test Performed at: [facility] [place] [address] [place] [address] Linn Livingston Blood 07/19/2024 8:14 AM CDT 07/20/2024 3:04 AM CDT us Jojo Silva MD CHEMISTRY ORDERABLES Final Res ult [facility] [phone] [facility] [place] [address] [place] [phone] from Last 3 Months Insurance ALLEGIANCE OPEN ACCESS ALLEGIANCE OPEN ACCESS Care Teams Evaluator Relationship Specialty Start Date End Date Jojo Silva MD [address] [place] [phone] PCP - General Internal Medicine 08/04/23
--- OUTSIDE RECORDS SUMMARY | 2024-09-01 22:04 | XMS_ITS | Data Portability ---
Author Organization [facility] [place] Address [address] [place] [address] Assessment No assessment recorded. Plan of Treatment Reminders Order Date Submit Date Provider Last Modified By Organization Details Last Modified Time Details Appointments None recorded. Lab None recorded. Referral None recorded. Procedures None recorded. Surgeries salpingecto my, laparoscopi c (SURG) 2023 024 [facility], [facility] [address], [place], [address], 4 11:38:51 Imaging None recorded. Medication Orders Addyi 100 mg tablet 2022 023 [email or web address] [facility], [address] [place] [address], [address], 4 10:06:13 escitalopra m 5 mg tablet [address] [facility] [address] [place], [address], 3 17:05:31 Patient TargetsNo targets recorded. Patient InstructionsNo instructions recorded. Reason for Referral None Reported. Results Created Date Observation Date Name Description Value Unit Range Abnormal Flag Note LastModifiedBy Organization Detail LastModifiedTime 03/26/19 24 03/26/2023 BHCG, QUANT ITATI VE B-HCG <0.2 mIU/m L This assay was perfo rmed using [employer] ratio n reage nts and test kits. Value s obtai luly with other assay metho ds or kits canno t be used inter bean eably . Refer ence Range s: Non-p regna nt, preme nopau heather women : 0.0-5 .3 mIU/m L Postm enopa usal women : 0.0-7 .0 mIU/m L Tracy l Pregn tati: Gesta jordan l Age bHCG Conc. - mIU/m L 3 Weeks 5.8 - 71.7 4 Weeks 9.5 - 750 5 Weeks 217-7 138 6 Weeks 158 - 31,79 5 7 Weeks 3,697 - 162,5 63 8 Weeks 32,06 5 - 149,5 71 9 Weeks 63,80 3 - 151,4 10 10 Weeks 46,50 9 - 186,9 77 12 Weeks 27,83 2 - 210,6 12 14 Weeks 13,95 0 - 62,53 0 15 Weeks 12,03 9 - 70,97 1 16 Weeks 9,040 - 56,45 1 17 Weeks 8,175 - 55,86 8 18 Weeks 8,099 - 58,17 6 Not Available [facility] (Lab) [address] [facility], [place], [address], 03/27/2023 08:27:04 Result Notes None recorded. Problems Name Problem SNOMED Code Status Onset Date Resolution Date Notes Provider Name and Address Organization Details Recorded Time Pregnanc y 00748189 Completed 201902/21/2020 [address]all[address] [facility] 0 14:56:52 Migratio n of central venous catheter 799550062 Completed 201502/21/2020 Displace ment of internal prosth dev/grft , init;Pra ctice ID: 0001 Rita rodney [facility] 0 14:56:45 Lacerati on of upper arm with foreign body 103974334 Completed 201502/21/2020 Lacerati on with foreign body of left upper arm, sequela; Practice ID: 0001 Rita rodney [facility] 0 14:56:39 Uses combined oral contrace ption 428574281 Completed 201602/21/2020 Encounte r for initial prescrip tion of contrace ptive pills;Pr actice ID: 0001 Rita Magallanes [facility] 0 14:56:32 Deep pain on intercou rse 121301632 Completed 201702/21/2020 Deep dyspareu adrienne;Prac joseph ID: 0001 Rita Magallanes [facility] 0 14:56:33 Pain in female genitali a Completed 201702/21/2020 Dysmenor hilda, unspecif ied;Prac joseph ID: 0001 Rita Magallanes [facility] 0 14:56:35 Pregnanc y test negative [id number] Completed 201702/21/2020 Encounte r for pregnanc y test, result negative ;Practic e ID: 0001 Rita Magallanes [facility] 0 14:56:46 Syphilis test finding 868073060 Completed 201702/21/2020 Encntr screen for infectio ns w sexl mode of transmis s;Record ed Elsewher e: No Locat ion: [facility] S ource: [employer] micheal: N Practi ce ID: 0001 Rai lable Time: 11:00:00 AM Rita Magallanes [facility] 0 14:56:53 Infectio n screenin g Completed 201702/21/2020 Encounte r for screenin g for oth infec/pa rastc diseases ;Recorde d Elsewher e: No Locat ion: [facility] S ource: [employer] micheal: N Practi ce ID: 0001 Rai lable Time: 11:00:00 AM Rita Magallanes [facility] 0 14:56:37 Abnormal weight gain 638189038 Completed 201502/21/2020 Abnormal weight gain;Rec orded Elsewher e: No Locat ion: [facility] S ource: [employer] micheal: N Rosa ce ID: 0001 Rai lable Time: 03:15:00 PM Rita Magallanes [facility] 0 14:56:[address] Concept Completed 201502/21/2020 Encounte r for surveill ance of other contrace ptives;R ecorded Elsewher e: No Locat ion: [facility] alexander [facility] S ource: [employer] micheal: N Wayneti ce ID: 0001 Rai lable Time: 03:15:00 PM Rita Magallanes [facility] 0 14:56:50 Generali zed anxiety disorder 47883265 Active 2019 [facility] 0 14:01:42 Depressi ve disorder 75765923 Active 2019 [facility] 0 14:01:47 Problem Notes None recorded. Procedures Surgical History Date Name Laterality Status Provider Name and Address Organization Details Recorded Time 02/03/20 24 SALPINGECTOMY, LAPAROSCOPIC (SURG) completed Deepti Ojeda [facility] 02/03/2024 11:39:24 08/07/19 22 IUD Removal completed Theresa Gaona [facility] 08/13/2021 00:02:48 03/18/19 22 IUD Insertion completed Marleny Hansen [facility] 03/18/2021 17:05:10 02/15/20 21 IUD Insertion completed Bernardino Pate MD [address], [place], [address], [facility] 02/14/2021 14:22:19 11/20/19 21 Date of Last Pap Smear completed Kaley Preston [facility] 02/14/2021 14:11:02 09/06/19 21 Control Implant Removal completed Bernardino Pate MD [address], [place], [address], [facility] 09/05/2020 20:43:30 04/11/19 21 Control Implant Insertion completed Bernardino Pate MD [address], [place], [address], [facility] 04/11/2020 15:45:51 03/02/19 20 extraction of wisdom tooth completed Marleny Hansen [facility] 04/04/2021 12:36:58 01/31/20 16 removal of implant completed Marleny Hansen [facility] 07/26/2019 13:16:56 Imaging Results None recorded. Procedure Notes None recorded. Medical Equipment None Reported. Allergies Allergen ID Allergen Name Allergen Category Reaction Reaction Severity Criticality Documentation Date Start Date Code Code System Note Provider Name and Address Organization Details Recorded Time 708 Fish (substanc e) food,medi cation Not available Not available Not available 07/26/2019 86303 1005 SNOMED Marleny rodney, [facility] 0 10:45:39 Medications Name Sig Start Date Stop Date Status Note LastModified by Organization Details LastModified Time doxycycli ne hyclate 100 mg capsule TAKE 1 CAPSULE BY MOUTH TWICE DAILY WITH FOOD UNTIL CLEAR THEN TAKE FOR 5-7 DAYS NEEDED FOR FLARES 01/15 completed Not Available Not Available Not Available spironola ctone 100 mg tablet TAKE 1 & 1/2 (ONE & ONE-HALF ) TABLETS BY MOUTH ONCE DAILY WITH A FULL GLASS OF WATER active Not Available Not Available No t Available Ferrex 150 mg iron capsule TAKE 1 CAPSULE BY MOUTH ONCE DAILY AT 8AM IN THE MORNING 03/01 completed Not Available Not Available Not Available triamcino lone acetonide 0.1 % topical cream APPLY TO THE AFFECTED AREAS OF THE ARMS FOR UP TO TWO CONSECUT DENISE WEEKS. TAKE A SMALL BREAK AND THEN USE NEEDED FOR FLARES THEREAFT ER. AVOID THE FACE, AXILLA AND GROIN. active Not Available Not Available No t Available oxycodone -acetamin ophen 5 mg-325 mg tablet TAKE 1 TABLET BY MOUTH EVERY 4 TO 6 HOURS NEEDED FOR PAIN active Not Available Not Available No t Available cephalexi n 500 mg capsule take by 1 tablet by oral route every 12 hours 01/09 completed Not Available Not Available Not Available omeprazol e 20 mg capsule,d elayed release TAKE 1 CAPSULE BY MOUTH ONCE DAILY 12/01 completed Not Available Not Available Not Available ergocalci ferol (vitamin D2) 1,250 mcg (50,000 unit) capsule TAKE 1 CAPSULE BY MOUTH ONCE A WEEK FOR 12 WEEKS 12/01 completed Not Available Not Available Not Available ibuprofen 600 mg tablet TAKE 1 TABLET BY MOUTH EVERY 6 HOURS NEEDED FOR CRAMPING 04/19 completed Not Available Not Available Not Available sertralin e 50 mg tablet TAKE 1 TABLET BY MOUTH ONCE DAILY FOR 90 DAYS 08/06 completed Not Available Not Available Not Available ParaGard T 380A 380 square mm intrauter ine device Take by intraute rine route. 08/06 completed Not Available Not Available Not Available amoxicill in 875 mg-potass ium clavulana te 125 mg tablet TAKE 1 TABLET BY MOUTH EVERY 12 HOURS FOR 7 DAYS 12/01 completed Not Available Not Available Not Available NuvaRing 0.12 mg-0.015 mg/24 hr vaginal insert 1 vaginal ring by vaginal route every month leave in place for 3 weeks, remove for 1 week 01/11 completed Prescrib ed Elsewher e: No Locat ion: Nadine munoz [facility] M odify By: [email or web address] E ncounter DateTime : 06/17/19 09:00:00 AM Not Available Not Available Not Available Wellbutri n XL 150 mg 24 hr tablet, extended release 01/15 completed Not Available Not Available Not Available escitalop kaitlynn 5 mg tablet Take 1 tablet every day by oral route. 12/01 completed Not Available Not Available Not Available nitrofura ntoin monohydra te/macroc rystals 100 mg capsule Take 1 capsule twice a day by oral route for 7 days. 11/16 completed Not Available Not Available Not Available duloxetin e 30 mg capsule,d elayed release Take 1 capsule every day by oral route. active Not Available Not Available No t Available Slow Release Iron 04/19 completed Not Available Not Available Not Available + DHA 03/01 completed Not Available Not Available Not Available Addyi 100 mg tablet Take 1 tablet every day by oral route. 01/15 completed Not Available Not Available Not Available ID NOW COVID-19 Test Kit TEST DIRECTED TODAY 12/01 completed Not Available Not Available Not Available Wegovy 1.7 mg/0.75 mL subcutane ous pen injector INJECT 0.75 ML (1.7 MG) SUBCUTAN EOUSLY ONCE A WEEK active Not Available Not Available No t Available Wegovy 1 mg/0.5 mL subcutane ous pen injector INJECT 1/2 (ONE-ERLINDA F) ML SUBCUTAN EOUSLY ONCE A WEEK 01/15 completed Not Available Not Available Not Available Wegovy 0.25 mg/0.5 mL subcutane ous pen injector INJECT 1/2 (ONE-ERLINDA F) ML SUBCUTAN EOUSLY ONCE A WEEK 01/15 completed Not Available Not Available Not Available Wegovy 0.5 mg/0.5 mL subcutane ous pen injector INJECT 1/2 (ONE-ERLINDA F) MG ONCE A WEEK 01/15 completed Not Available Not Available Not Available Vitals Date Recorded Body height Body mass index (BMI) Body weight Systolic And Diastolic Provider Name and Address Organization Details Last Updated DateTime 10/17/2021 175.26 cm 31.7 kg/m2 83037.36 g 119/88 mm[Hg] Marleny Hansen [facility] 10/17/2021 09:35:53 Date Recorded Body height Body mass index (BMI) Body weight Systolic And Diastolic Provider Name and Address Organization Details Last Updated DateTime 12/01/2022 175.26 cm 31.4 kg/m2 37490.74 g 129/83 mm[Hg] Mary Ellen Norris [facility] 12/01/2022 17:04:41 Date Recorded Body height Body mass index (BMI) Body weight Systolic And Diastolic Provider Name and Address Organization Details Last Updated DateTime 01/08/2023 175.26 cm 31.8 kg/m2 82020.08 g 126/84 mm[Hg] Mary Ellen Mckeonlane [facility] 01/08/2023 16:04:20 Date Recorded Body height Body mass index (BMI) Body weight Systolic And Diastolic Provider Name and Address Organization Details Last Updated DateTime 01/16/2024 175.26 cm 26.7 kg/m2 09619.22 g 105/72 mm[Hg] Deepti Ojeda [facility] 01/16/2024 10:05:21 Date Recorded Body height Body mass index (BMI) Body weight Systolic And Diastolic Provider Name and Address Organization Details Last Updated DateTime 02/08/2024 175.26 cm 25.8 kg/m2 45126.66 g 105/71 mm[Hg] Zoraida Weems [facility] 02/08/2024 12:40:38 Social History Question Answer Notes LastModified by Organizat ion Details LastModified Time Tobacco Smoking Status Never [facility] 01/08/2023 16:04:38 Do You Have An Advance Directive? No Information n ot available 09/05/2020 If You Are , What Was Your Level Of Alcohol Consumption Prior To ? None Information not available 01/08/2023 How Many Years Have You Consumed Alcohol? 4 Information not available 10/17/2021 Are You Blind Or Do You Have Difficulty Seeing? No Information n ot available 09/05/2020 What Is Your Level Of Caffeine Consumption? Occasional [email or web address] Information not available 10/17/2021 How Much Tobacco Do You Chew? None Information not available 09/05/2020 In The 14 Days Before Symptom Onset, Have You Had Close Contact With A Laboratory-confirm ed COVID-19 While That Case Was Ill? No Information n ot available 09/05/2020 In The 14 Days Before Symptom Onset, Have You Had Close Contact With A Person Who Is Under Investigation For COVID-19 While That Person Was Ill? No Information not available 09/05/2020 Have You Been To An Area Known To Be High Risk For COVID-19? No Information not available 09/05/2020 Are You Deaf Or Do You Have Serious Difficulty Hearing? No Information not available 09/05/2020 What Type Of Diet Are You Following? REGULAR Information n ot available 09/05/2020 What Is The Highest Grade Or Level Of School You Have Completed Or The Highest Degree You Have Received? [id number] Information not available 09/05/2020 Are There Any Guns Present In Your Home? No Information not available 09/05/2020 What Was The Date Of Your Most Recent Tobacco Screening? 10/17/2021 Information not available 01/08/2023 Do You Use Protection During Sex? No Information not available 12/01/2022 Do You Use Your Seat Belt Or Car Seat Routinely? Yes Information not available 09/05/2020 Do You Have Smoke And Carbon Monoxide Detectors In Your Home? Yes Information not available 09/05/2020 How Much Tobacco Do You Smoke? No [id number] Information not available 01/03/2020 Smoking Pre- No Information not available 01/08/2023 Do You Use Sunscreen Routinely? Yes Information not available 09/05/2020 Have You Used IV Drugs? No Information not available 09/05/2020 Do You Have Difficulty Walking Or Climbing Stairs? No Information not available 01/08/2023 Sex: Unknown Functional Status Question Answer Note LastModified by Organizat ion Details LastModified Time Do you use any illicit or recreational drugs? Yes Information not available 02/08/2024 What is your level of alcohol consumption? Occasional [email or web address] Information not available 11/19/2020 Do you or have you ever used smokeless tobacco? Never used smokeless tobacco Information not available 01/08/2023 Are you able to walk? YESWOREST Information not available 09/05/2020 Are you able to care for yourself? 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 No Information not available 01/08/2023 Do you or have you ever used e-cigarettes or vape? Never used electronic cigarettes Information not available 01/08/2023 What is your exercise level? None Information not available 02/08/2024 Mental Status Question Answer Note LastModified by Organization D etails LastModified Time Do you feel stressed (tense, restless, nervous, or anxious, or unable to sleep at night)? [id number] Information not available 01/08/2023 Family History Relationship Description Onset Age of this Age Resolved Age Notes LastModified by Organization Details LastModified Time Mother Diabetes mellitus [email or web address] Not available 2020 16:45:42 Mother Hypertensive disorder phewitt Not available 2020 16:45:42 Maternal Aunt Diabetes mellitus [email or web address] Not available 2020 16:45:42 Maternal Grandmother Malignant tumor of breast phewitt Not available 2020 16:45:42 Maternal Grandmother Diabetes mellitus phewitt Not available 2020 16:45:42 Maternal Grandmother Hypertensive disorder phewitt Not available 2020 16:45:42 Maternal Grandmother Malignant tumor of colon [email or web address] Not available 2020 15:37:47 Maternal Grandmother Malignant neoplasm of liver [email or web address] Not available 2023 12:08:06 Maternal Grandfather Carcinoma of prostate [email or web address] Not available 2023 12:08:06 Father Anxiety disorder [email or web address] Not available 2020 15:37:47 Medical History Condition Response Allergies (Food, seasonal, environmental ) N Other N Blood Transfusion N Drug/Latex Allergies/Reactions N Breast Cancer N Dermatologic Disorders N Lung Disease N Defects or Inherited Disease N Breast Problem N Gestational Diabetes N Hematologic disorders N Anesthesia Complications N History of STI N Deep Vein Thrombosis N Polycystic ovary syndrome N Anxiety Disorder Y Autoimmune disease N Arthritis N Infertility N Polyps N Acid Reflux (GERD) N History of abnormal pap N Cancer N Stroke N Varicosities N Neurologic/Epilepsy N Endometriosis N High Cholesterol N Headaches N Fibromyalgia N Kidney Disease N Heart Problems N Kidney or Bladder Problems N Thyroid Problems N GI Problems N Eating Disorder N Anemia N Art (IVF or FET) N Psychiatric Illness N Ovarian Cancer N Diabetes N Pulmonary (TB, Asthma) N Hepatitis/Liver Disease N Eczema N Urinary Tract Infection N Abuse/Domestic Violence N Asthma N Trauma/Violence N Depression/ depression Y Heart Disease N Pre-Eclampsia N Hypertension N Osteoporosis N Thrombophilias N Gynecological History Statement/Question Response Date of LMP 01/08/2024 N On BCP's at Conception? N STIs/STDs N Was last menstrual period normal Y HPV Vaccine N Duration of Flow (days) 5 Current Control Method Partner Vas ectomy Age at First Child 19 Date of control 06/14/2021 Are cycles usually normal Y Frequency of Cycle (Q days) 28 Sexually Active? Y N/A Menses Monthly Y Age of first menstrual cycle 8 Date of Last Pap Smear 11/19/2020 Sexual Problems? N LMP Definite Desired Control Method None N Obstetrics History GPAL:G 2 P 1 0 1 1 Type Value Full Term 1 Spontaneous 1 Living 1 Total 2 Past Encounters Encounter ID Performer Location Encounter Start Date Encounter Closed Date Diagnosis/Indication Diagnosis SNOMED-CT Code Diagnosis ICD10 Code Diagnosis Note [id number] Татьяна Clemente [facility] [address],[facility] [address] 07/26/2019 10:02:08 07/26/2019 12:09:57 Amenorrhea 36036901 N91.2 +UPT [id number] Bernardino Pate MD [facility] [address] [address] 07/28/2019 15:22:58 07/28/2019 16:55:13 Uncertain viability of 245602117 O36.80X9 Z3A.08 [id number] Bernardino Pate MD [facility] [address] [address] 08/25/2019 15:25:09 08/29/2019 16:00:10 Routine care 029556855 Z34.81 screening 9887 51862 Z36.89 [id number] Bernardino Pate MD [facility] [address],[place] [address] 08/25/2019 15:25:54 08/29/2019 16:28:17 screening 455856785 Z36.82 Z36.0 [id number] Bernardino Pate MD [facility] [address],[place] [address] 09/23/2019 11:51:10 09/23/2019 14:26:54 [id number] Татьяна Clemente [facility] [address],[place] [address] 09/23/2019 11:51:49 09/23/2019 13:45:40 Routine care 212461847 Z34.02 [id number] Bernardino Pate MD [facility] [address],[place] [address] 10/26/2019 10:50:34 10/26/2019 12:15:26 screening for malformation 255379543 Z36.3 [id number] [facility] [address],[place] [address] 10/26/2019 10:51:59 10/26/2019 18:16:17 Routine care 993112573 Z34.92 [id number] Bernardino Pate MD [facility] [address],[place] [address] 11/17/2019 13:30:26 11/17/2019 14:36:59 screening 050806111 Z36.2 [id number] Theresa Gaona [facility] [address],[place] [address] 11/17/2019 13:32:20 11/18/2019 10:52:17 Routine care 430559528 Z34.92 [id number] Theresa Gaona [facility] [address],[place] [address] 12/12/2019 09:58:22 12/12/2019 10:38:28 Routine care 423080357 Z34.92 [id number] Theresa Gaona [facility] [address],[place] [address] 12/28/2019 14:42:44 12/28/2019 16:02:42 Routine care 582392373 Z34.92 Elevated blood-pressure reading without diagnosis of hypertension 531850029 R03.0 [id number] Татьяна Clemente [facility] [address],[place] [address] 01/10/2020 11:00:02 01/10/2020 17:06:11 Routine care 802746824 Z34.02 [id number] Theresa Gaona [facility] [address],[place] [address] 01/25/2020 12:45:42 01/25/2020 14:42:28 Routine care 396755235 Z34.92 [id number] Татьяна Clemente [facility] [address],[place] [address] 02/08/2020 13:59:52 02/08/2020 14:26:45 Routine care 971754746 Z34.02 [id number] Theresa Gaona [facility] [address],[place] [address] 02/15/2020 13:41:01 02/15/2020 14:44:18 Routine care 647094552 Z34.92 [id number] Татьяна Clemente [facility] [address],[place] [address] 02/22/2020 14:00:29 02/22/2020 14:43:48 Routine care 933959374 Z34.02 [id number] Татьяна Clemente [facility] [address] [place] [address] 03/01/2020 09:49:55 03/01/2020 10:28:41 Anxiety 15290409 F41.9 [id number] Bernardino Pate MD [facility] [address],[place] [address] 03/27/2020 17:11:07 03/27/2020 18:00:22 care 269559951 Z39.2 [id number] Bernardino Pate MD [facility] [address],[place] [address] 04/11/2020 14:52:18 04/11/2020 16:03:43 Contraception care management 935315714 Z30.9 Nexplanon inserted without complicati ons. [id number] [facility] [address],[place] [address] 04/19/2020 15:59:48 04/19/2020 16:51:53 Mixed anxiety and depressive disorder 902534346 F41.8 Discussed pp anxiety and depression in great detail. I have strongly encouraged counseling . Pt would like to start medication . Discussed risks and benefits. Will start zoloft. No thoughts of harming herself or others. If any worsening of symptoms she will notify us right away. RTC in 2 weeks. Sooner if any concerns. [id number] [facility] [address],[place] [address] 05/08/2020 14:40:16 05/08/2020 17:03:10 Mixed anxiety and depressive disorder 296268544 F41.8 Patient is here today for a medicaton check of zoloft for depression /anxiety. She voices goals of therapy have been met with use of this therapy. She denies neg side effects & notes a night & day difference . She is eating, drinking, sleeping well; moods are stable & periods are well regulated. Wishes to continue this method of therapy. Appropriat e to continue this medication . We agreed to f/u in 6mos for WWE/Med check to ensure still doing well on this therapy. No further questions or concerns. Additional precaution radha measures were taken to minimize potential exposure to the Covid-19 virus during this patient s visit, including available hand electric knife operator upon arrive, temperatur e check and being asked a series of screening questions. All staff wore face coverings during this encounter, as well as provided additional cleaning and sanitizing of all surfaces, including countertop s, pens, chairs, door handles, light switches, etc, prior to and following the patient s visit. RTW note given. Time spent in visit is a total of 15 mins with at least 50% of visit consisting of counseling and review of plan of care. [id number] Bernardino Pate MD [facility] [address] [address] 09/05/2020 16:43:57 09/06/2020 10:54:13 Contraception care management 682377415 Z30.9 Nexplanon removed without complicati ons. She tolerated it well. [id number] [facility] [address],[facility] [address] 11/19/2020 15:24:42 11/19/2020 16:07:38 Gynecologic examination [id number] Z01.419 Z11.3 Z11.8 Take Calcium with Vitamin D 1200mg daily if not receiving in daily diet. It is strongly advised to have an annual flu shot and up can obtain at most pharmacies . If you have not had a TDap shot in the last 10 years you should obtain one as well. Discussed with patient & provided with informatio n regarding Gardisil vaccine to prevent the 4 strains for HPV that cause cervical cancer if under age 26. Encourage safe sexual practices, to use condoms and limit partners if not already in a monogamous relationsh ip. Do monthly self breast exams. Have mammogram yearly or every other year depending on family history. BRCA testing is now available for patients with strong genetic history of female cancer. If interested contact the office. Engage in daily exercise of low impact aerobic exercise 45-60 minutes 4-5 times weekly. Avoid tobacco and illicit drugs as well as using moderation with alcohol intake less than 1-2 8 oz beverages daily. This lifestyle behavior pattern will lead to less health conditions and longer life span. If BMI greater than 25 weight watchers or dietary consult advised. Patient received above instructio ns, and questions have been answered. If you have any questions please call or respond to this email. Patient was made aware of the patient portal and may obtain a paper copy of today's plan if desired. Amenorrhea [id number] N91. 2 No cycle since removal of nexplanon. Will check tsh and hcg today. If no cycle by 12-06-20 pt will call us to schedule follow up. Discussed importance of regular shedding of uterine lining. [id number] Bernardino Pate MD [facility] [address],[place] [address] 02/14/2021 13:58:09 02/14/2021 14:37:36 Contraception care management [id number] Z30.9 IUD was placed without complicati ons. She tolerated it well. [id number] Bernardino Pate MD [facility] [address],[place] [address] 03/18/2021 16:41:06 03/18/2021 18:13:55 Contraception care management [id number] Z30.9 This patient is a 20 female who presents for IUD check. [facility] She has no complaints . She denies any excessive bleeding or pain. She has had some cramping and some spotting. Otherwise, she feels that is going well and wants to continue her IUD. [id number] Theresa Gaona CNM [facility] [address],[place] [address] 08/06/2021 11:45:41 08/13/2021 17:06:24 Removal of intrauterine device [id number] Z30.432 Removed without difficulty . Pt declines any further testing at this time as she feels the paragard is the cause of her concerns. If any cycle abnormalit ies or pain after removal she will let us know. If the symptoms completely resolve than we can do routine follow up. [id number] Theresa Gaona CNM [facility] [address],[place] [address] 10/17/2021 09:29:55 10/21/2021 17:05:26 Mixed anxiety and depressive disorder [id number] F41.8 Denies thoughts of harming herself or others. Discussed options and patient would like to start lexapro. Will return for follow up in 1 month or sooner if any worsening of symptoms. [id number] BARRETT DIXON MD [facility] [address],[place] [address] 12/01/2022 16:58:45 12/02/2022 10:03:23 Reduced libido [id number] R68.82 - no new life stressors, medication s or relationsh ip issues prior to issue starting- no dyspareuni a or vaginal dryness- discussed complex topic of libido in women- discussed medical treatment with Addyi vs counseling /mindfulln ess apps such as Fatoumata- patient would like to try mindfulnes s/wellness apps for 1 month; if libido still low, will then trial Addyi [id number] FRANCOIS Peterson [facility] [address],[place] [address] 01/08/2023 15:43:51 01/08/2023 16:44:54 Reduced libido [id number] R68.82 -no new life stressors, medication s or relationsh ip issues prior to issue starting- no dyspareuni a or vaginal dryness- discussed complex topic of libido in women- tied the fatoumata husam for 1 month with no improvemen t Management options discusseds he would like to start addyi, r/b/a reviewed. She was counseled on the risk of combining addyi with duloxetine . She is aware needs to take medication at bedtime, delay dose x 2 hours if 2 alcoholic drinks consumed. If 3 or more alcoholic drinks consumed needs to skip dose.med check needed in 2 monthsnoti fy the office with any questions/ concerns Time spent in visit is a total of 30 mins with at least 50% of visit consisting of counseling and review of plan of care. [id number] Bernardino Pate MD [facility] [address],[place] [address] 01/16/2024 09:54:04 01/19/2024 14:38:31 Female sterilization [id number] Z30.2 [id number] Bernardino Pate MD [facility] [address],[place] [address] 02/08/2024 12:07:58 02/10/2024 03:19:09 Postoperative care [id number] Z48.89 This patient is a 23-year-ol d female who presents for postop follow-up. She is 1 week postop from a laparoscop ic bilatera Salpingect lucina. Her incisions are clean dry and intact. She has no complaints . She is recovering normally. She will follow up as needed. Health Concerns Section Related Observation LastModified by Organization Detai ls LastModified Time None Recorded Concern Status LastModified by Organization Details LastModified Time None Recorded Advance Directives Directive N: Payers Insurance Date Sequence Insurance Name Policy Number Policy Capellan Covered Member ID Capellan Member ID Guarantor Name 02/08/2024 1 [facility] [id number] Niki Holly [id number] Niki Holly 02/08/2024 2 [facility] [id number] Niki Holly [id number] Niki Holly 02/08/2024 1 [facility] - [facility] Niki Holly [id number] Niki Holly Notes Date Note Type Note Provider Name and Address Organization Details Recorded Time 10/17/2021 text/html Worsening anxiety.Sometimes hard to get out of bed due to anxiety.No thoughts of harming herself or others.Would like to discuss treatment.Has pcp but unsure of name. Address is [address] [place] [address]. Theresa rodney, [facility] 01/21/2022 02:22:09 12/01/2022 text/html Presents to discuss low libido for the past 6 months. Denies changes to relationship or stress level prior to this. Denies dypareunia or vaginal dryness. She did start taking cymbalta 1.5 month ago, however she reports her libido was low for months prior to this. She has tried zoloft and lexapro in past but did not have good response. Has not tried Wellbutrin. BARRETT DIXON MD [address], [place], [address], [facility] 12/01/2022 22:25:23 01/08/2023 text/html Presents to discuss low libido for the past 6 months. Denies changes to relationship or stress level prior to this. Denies dyspareunia or vaginal dryness. She did start taking cymbalta 3 month ago, however she reports her libido was low for months prior to this. She has tried zoloft and lexapro in past but did not have good response. Has not tried Wellbutrin.Tried the fatoumata husam for 1 month with no improvement- wants to discuss starting addyi FRANCOIS Peterson [address], [place], [address], [facility] 01/08/2023 16:25:58 02/08/2024 text/html This patient is a 23-year-old female who presents for postop follow-up. She is 1 week postop from a laparoscopic bilatera Salpingectomy. Her incisions are clean dry and intact. She has no complaints. She is recovering normally. She will follow up as needed. Bernardino Pate MD [address], [place], [address], [facility] 02/09/2024 19:38:21 OBGyn Episode Ob Episode Information Episode Created Date Number of Fetuses Patient Bloodtype Patient rh Status Prepregnancy Weight lbs Domestic Partner Domestic Partner Phone Father Name Mri Ct Tech Status 08/25/19 20 1 O Positive 207 CLOSED Fetus Data First Name Last Name Admitted to NICU Weight (g) Sex Living Outcome Pediatric Complications Fetus ID Race Codes Race Delivery Type 3401.94 M Full Term 2538 Vaginal Delivery Ash Calculation Initial Ash Date Initial Exam Date Initial Exam Provider Initial Ultrasound Date Last Menstrual Period Date Ultra Sound Weeks Gestation 03/05/2020 08/25/2019 07/28/2019 05/30/2019 8 Eighteen To Twenty Week Ash Update Ultra Sound Date Fundal Height At Umbil Quickening Date Ultra Sound Latest Weeks Gestation Final Ash Confirmed By Final Ash Confirmed Date Final Ash Date Ultra Sound Latest Days Gestation 0 03/05/19 21 0 Pre- Flowsheet Flowsheet Date 08/25/2019 Wakefield Score Blood Edema Fundus Height Fundus Units Glucose Ketones Leukocytes Nitrite Labor Signs Protein Cervic Dilation Cervic Effacement Cervic Station Type Weight in lbs Pre/Post Dialysis Refused BP Diastolic BP Location Tested BP Systolic BP Type Fetus Heart Rate Present Fetus Movement Comments Flowsheet Date 08/25/2019 Wakefield Score Blood Edema Fundus Height Fundus Units Glucose Ketones Leukocytes Nitrite Labor Signs Protein Cervic Dilation Cervic Effacement Cervic Station trace Type Weight in lbs Pre/Post Dialysis Refused Weight 203.48157183743 BP Diastolic BP Location Tested BP Systolic BP Type 81 124 Fetus Heart Rate Present Fetus Movement A No Comments This patient is a 19-year-ol d 2 para 0 at 12 weeks gestation with no identifiable risk factors for her .She has no complaints. She will return for routine care. Flowsheet Date 09/23/2019 Wakefield Score Blood Edema Fundus Height Fundus Units Glucose Ketones Leukocytes Nitrite Labor Signs Protein Cervic Dilation Cervic Effacement Cervic Station Type Weight in lbs Pre/Post Dialysis Refused BP Diastolic BP Location Tested BP Systolic BP Type Fetus Heart Rate Present Fetus Movement Comments Flowsheet Date 09/23/2019 Wakefield Score Blood Edema Fundus Height Fundus Units Glucose Ketones Leukocytes Nitrite Labor Signs Protein Cervic Dilation Cervic Effacement Cervic Station neg none trace Type Weight in lbs Pre/Post Dialysis Refused Weight 205.718152294832 BP Diastolic BP Location Tested BP Systolic BP Type 76 131 Fetus Heart Rate Present Fetus Movement A Yes Comments gender us boy Anoop doin g well plan 4 week visit with anatomy scan Flowsheet Date 10/26/2019 Wakefield Score Blood Edema Fundus Height Fundus Units Glucose Ketones Leukocytes Nitrite Labor Signs Protein Cervic Dilation Cervic Effacement Cervic Station Type Weight in lbs Pre/Post Dialysis Refused BP Diastolic BP Location Tested BP Systolic BP Type Fetus Heart Rate Present Fetus Movement Comments Flowsheet Date 10/26/2019 Wakefield Score Blood Edema Fundus Height Fundus Units Glucose Ketones Leukocytes Nitrite Labor Signs Protein Cervic Dilation Cervic Effacement Cervic Station neg none trace Type Weight in lbs Pre/Post Dialysis Refused Weight 212.77338148976 BP Diastolic BP Location Tested BP Systolic BP Type 82 125 Fetus Heart Rate Present Fetus Movement A Yes Comments patient states that having s ome contractions and normal discharge, anatomy incomplete cranial views rot 4 weeks precautions Flowsheet Date 11/17/2019 Wakefield Score Blood Edema Fundus Height Fundus Units Glucose Ketones Leukocytes Nitrite Labor Signs Protein Cervic Dilation Cervic Effacement Cervic Station Type Weight in lbs Pre/Post Dialysis Refused BP Diastolic BP Location Tested BP Systolic BP Type Fetus Heart Rate Present Fetus Movement Comments Flowsheet Date 11/17/2019 Wakefield Score Blood Edema Fundus Height Fundus Units Glucose Ketones Leukocytes Nitrite Labor Signs Protein Cervic Dilation Cervic Effacement Cervic Station 24 trace Type Weight in lbs Pre/Post Dialysis Refused Weight 219.880983971852 BP Diastolic BP Location Tested BP Systolic BP Type 83 L arm 132 sitting Fetus Heart Rate Present A 136 Fetus Movement A Yes Comments Heartburn. Discussed use of pepcid. Anatomy complete today. *last visit on 10-25 documented under my name but I was not working* Flowsheet Date 12/12/2019 Wakefield Score Blood Edema Fundus Height Fundus Units Glucose Ketones Leukocytes Nitrite Labor Signs Protein Cervic Dilation Cervic Effacement Cervic Station none 27 trace Type Weight in lbs Pre/Post Dialysis Refused Weight 223.954803576014 BP Diastolic BP Location Tested BP Systolic BP Type 77 R arm 118 sitting Fetus Heart Rate Present A 140 Fetus Movement A Yes Comments Pt doing well. Heartburn sli ghtly improved with pepcid but would like to try zantac instead. 1 hour gtt today. Encouraged classes. Flowsheet Date 12/28/2019 Wakefield Score Blood Edema Fundus Height Fundus Units Glucose Ketones Leukocytes Nitrite Labor Signs Protein Cervic Dilation Cervic Effacement Cervic Station trace 31 trace Type Weight in lbs Pre/Post Dialysis Refused Weight 233.223018631338 BP Diastolic BP Location Tested BP Systolic BP Type 87 L arm 141 sitting Fetus Heart Rate Present A 125 Fetus Movement A Yes Comments Encouraged tdap and flu shot . Slightly elevated bp today. Denies h/a, v/d, or e/p. Will check labs today. PIH precautions given. Pt verbalized understanding. Flowsheet Date 01/10/2020 Wakefield Score Blood Edema Fundus Height Fundus Units Glucose Ketones Leukocytes Nitrite Labor Signs Protein Cervic Dilation Cervic Effacement Cervic Station neg none 32 trace Type Weight in lbs Pre/Post Dialysis Refused Weight 232.99172435813 BP Diastolic BP Location Tested BP Systolic BP Type 79 131 Fetus Heart Rate Present A 143 Present Fetus Movement A Yes Comments patient states that abdomina l pain, back pain, contractions, headaches, normal discharge, and heartburn, precautions reviewed Flowsheet Date 01/25/2020 Wakefield Score Blood Edema Fundus Height Fundus Units Glucose Ketones Leukocytes Nitrite Labor Signs Protein Cervic Dilation Cervic Effacement Cervic Station neg none 34 trace Type Weight in lbs Pre/Post Dialysis Refused Weight 235.893261462280 BP Diastolic BP Location Tested BP Systolic BP Type 80 121 Fetus Heart Rate Present A 140 Fetus Movement A Yes Comments Visit per Z Due SNM. Pt wes sahni well. Pre admit scheduled. Labor precautions. Flowsheet Date 02/08/2020 Wakefield Score Blood Edema Fundus Height Fundus Units Glucose Ketones Leukocytes Nitrite Labor Signs Protein Cervic Dilation Cervic Effacement Cervic Station 36 0cm 20% -2 Type Weight in lbs Pre/Post Dialysis Refused Weight 242.135669362041 BP Diastolic BP Location Tested BP Systolic BP Type 83 135 Fetus Heart Rate Present A 145 Present Fetus Movement Comments gbs done today precautions r rogerio, pt desires EIL will discuss at 39 weeks Flowsheet Date 02/15/2020 Wakefield Score Blood Edema Fundus Height Fundus Units Glucose Ketones Leukocytes Nitrite Labor Signs Protein Cervic Dilation Cervic Effacement Cervic Station neg trace 38 trace 0cm 20% -2 Type Weight in lbs Pre/Post Dialysis Refused Weight 247.198872666967 BP Diastolic BP Location Tested BP Systolic BP Type 86 139 Fetus Heart Rate Present A 132 Fetus Movement A Yes Comments Discomfort with urination. U rine normal. Will send for culture. Occasional headache. Seems to improve with rest & Tylenol. No visual disturbances. Upon discussion pt is also having some occasional ruq discomfort but not at this time. Will do labs today. PIH precautions discussed in great detail and if any symptoms she will go in right away for evaluation. Flowsheet Date 02/22/2020 Wakefield Score Blood Edema Fundus Height Fundus Units Glucose Ketones Leukocytes Nitrite Labor Signs Protein Cervic Dilation Cervic Effacement Cervic Station neg trace 38 trace Type Weight in lbs Pre/Post Dialysis Refused Weight 249.024082725654 BP Diastolic BP Location Tested BP Systolic BP Type 83 143 Fetus Heart Rate Present A 154 Fetus Movement A Yes Comments patient is having cramping, contractions, discharge and nausea, asyptomatic, bp elevated, plan MIL Menstrual History Last Menstrual Date Menses Monthly On Bcp Conception Prior Menses Frequency Hcg Plus Date Menarche Onset Age 0305/30/2019 Genetic Screening And Infection History Question Response Note Mental Retardation/Autism false Patient's Age Will Be 35 Years Or Older At Estim ated Date of Delivery false Thalassemia (Maori, Eritrean, Mediterranean, Or Background): MCV < 80 false Neural Tube Defect (Meningomyelocele, Spina Bifi da, Or Anencephaly) false Congenital Heart Defect false Down Syndrome false Ulysses-Sachs (eg, Mormonism, Cajun, Italian-[place]) f alse Cathryn Disease false Sickle Cell Disease Or Trait () false Hemophilia Or Other Blood Disorders false Muscular Dystrophy false Cystic Fibrosis false Narciso's Chorea false Intellectual Disability/Autism false If Yes, Was Person Tested For Fragile X? false Other Inherited Genetic Or Chromosomal Disorder false Maternal Metabolic Disorder (eg, Type 1 Diabetes , PKU) false Patient Or Baby's Father Had A Child With Defects Not Listed Above false Recurrent Loss, Or A Stillbirth false Medications (including Suppl ements, Vitamins, Herbs, OTC Drugs), Illicit/Recreational Drugs, Alcohol false If Yes, Agent(s) And Strength/Dosage false Any Other Genetic History false Live With Someone With TB Or Exposed To TB false Patient Or Partner Has History Of Genital Herpes false Rash Or Viral Illness Since Last Menstrual Perio d false History Of STD, Gonorrhea, Chlamydia, HPV, Syphi lis false Other Infection History false History of HIV false History of Hepatitis false Prior GBS-infected child false Hemoglobinopathy Or Carrier false Other Structural Defect false Recent Travel History Outside of Country false Delivery Information Delivery Date Delivery Type Labor Anesthesia Weeks Gestation Incision Type Labor Labor Length Hrs Delivered By Post Complications Tubal Sterilization Discharge Date Comments 0 None 38.4 [email or web address] Febbril e GHTN Discharge Information Feeding Method Contraceptive Method Maternal HG B and HCT Levels Ob Episode Information Episode Created Date Number of Fetuses Patient Bloodtype Patient rh Status Prepregnancy Weight lbs Domestic Partner Domestic Partner Phone Father Name Mri Ct Tech Status 08/25/19 20 1 CLOSED Fetus Data First Name Last Name Admitted to NICU Weight (g) Sex Living Outcome Pediatric Complications Fetus ID Race Codes Race Delivery Type , Spontane ous 2540 Ash Calculation Initial Ash Date Initial Exam Date Initial Exam Provider Initial Ultrasound Date Last Menstrual Period Date Ultra Sound Weeks Gestation 0 Eighteen To Twenty Week Ash Update Ultra Sound Date Fundal Height At Umbil Quickening Date Ultra Sound Latest Weeks Gestation Final Ash Confirmed By Final Ash Confirmed Date Final Ash Date Ultra Sound Latest Days Gestation 0 0 Menstrual History Last Menstrual Date Menses Monthly On Bcp Conception Prior Menses Frequency Hcg Plus Date Menarche Onset Age Delivery Information Delivery Date Delivery Type Labor Anesthesia Weeks Gestation Incision Type Labor Labor Length Hrs Delivered By Post Complications Tubal Sterilization Discharge Date Comments 8 Discharge Information Feeding Method Contraceptive Method Maternal HG B and HCT Levels
--- OUTSIDE RECORDS SUMMARY | 2024-09-01 22:04 | XMS_ITS | Data Portability ---
Author Organization [employer] [facility] Office Address [address] [place] [address] Assessment Encounter Date Assessment Date Assessment LastModified by Organization Details LastModified Time 06/27/2024 06/27/2024 I spent 35 minutes of kghn-gk-mfir counselling and care coordination time with the patient. This includes reviewing medical records (medical, surgical, family and social history); updating medication and allergy information in the electronic health record; and ordering labs, medications, and education materials to continue patient care. [email or web address] Not available 06/27/2024 13:12:06 08/08/2024 08/08/2024 I spent 18 minutes of ilwk-vg-[id number] counselling and care coordination time with the patient. This includes reviewing medical records (medical, surgical, family and social history); updating medication and allergy information in the electronic health record; and ordering labs, medications, and education materials to continue patient care. [email or web address] Not available 08/08/2024 11:02:32 Plan of Treatment Reminders Order Date Submit Date Provider Last Modified By Organization Details Last Modified Time Details Appointments [id number] 2024 08:00A Shira KIMBROUGH NP Not available Not available Not available Lab None recorded. Referral None recorded. Procedures None recorded. Surgeries None recorded. Imaging None recorded. Medication Orders metformin 500 mg tablet 2024 025 [email or web address] [address] [place], [address], 08/08/2024 11:45:34 metformin 500 mg tablet 2024 025 [email or web address] [address], [address] [facility], [place], [address], 06/27/2024 13:59:04 Patient TargetsNo targets recorded. Patient Instructions Encounter Date Encounter Id Patient Instructions Last Modified By Organization Details Last Modified Time 06/27/2024 [id number] Fiber FAQs [facility] [email or web address] Not available 06/27/2024 13:58:57 Any requested follow-up visits are listed below in the Plan of Care section. Go directly to the [facility] materials scheduler at [email or web address] Payment to book a time. [email or web address] Not available 06/27/2024 13:10:38 It was a pleasur e to meet you and begin to collaborate on your care! Looking forward to seeing you again soon - and please do not hesitate to reach out with any questions. We focused on these items today: 1 . WEIGHT MEDICATION Please see changes to your medication plan below LABS Upload labs upon availability RESOURCES Here is some more information about what we discussed: It was a pleasure to meet with you today! We discussed your health concerns related to weight management. Your Care Plan Together, we decided that you would: - Start taking Metformin 500 mg tablets. Take one tablet daily for 7 nights, then increase to twice daily if tolerated. You can take both tablets at night or one in the morning and one in the evening, depending on what works best for you. - Continue your high protein and high fiber diet. Aim for 100-120 grams of protein and 25 grams of fiber daily. - Maintain your current level of physical activity, aiming for at least 150 minutes of moderate exercise per week. - Upload your recent lab results using the link provided by our team. - Monitor for any side effects from Metformin, such as stomach discomfort or loose stools. If you experience any severe reactions, stop taking the medication and contact your healthcare provider. - Follow up with your primary care provider, Dr. Rosalba Thomas, for ongoing monitoring of your fatty liver and any other health concerns. - Attend a follow-up appointment scheduled for August 08 at 10:00 AM to discuss your progress and any adjustments to your treatment plan. Please carefully review the care plan we have decided upon above, including specific information about your medication, and any other important details about your overall care. Thank you for trusting us with your care! As we discussed, berberine is a supplement made from plant extracts that seems to have multiple health benefits, especially on metabolism and cardiovascular risks. Small scale studies support its use in controlling an appetite and specifically inhibiting an enzyme leading to central fat storage. These studies have shown modest weight loss (5 + lbs in 12 weeks) and reduction in waist circumference with daily use of berberine supplements. Berberine has been shown to reduce average blood sugar levels and HgA1C (the lab value that measures average blood sugar), lower triglycerides and lipid levels and positively affect metabolic syndrome. How to take berberine: The best evidence suggests that you take a berberine 500 mg tablet/ three times per day (total 1.5 gm/day). Take it 30 minutes before each meal. It has been used safely up to 6 months. Chronic use is not usually recommended as it is a potent antimicrobial and affects the gut microbiome. (It can cause digestive issues as a side effect.) The Midi take: Early studies show amazing effects on cardiovascular risk factors overall but the studies are very small and more information is needed. It does appear to be safe, however: Cautions: - Berberine can interact with blood thinning medications and increase your risk of bruising or bleeding. If you are taking blood thinners such as coumadin, plavix. Eliquis, Pradaxa or Xeralto you may wish to consider alternatives to berberine in your metabolic care plan. - Berberine can interact with many drugs: Cozaar, metformin, tacrolimus, pentobarbital, Versed, Robitussin DM, sedatives, and other medications. These interactions may require more clinical monitoring or dose adjustments and should be discussed with your pharmacist and clinician. - If you have diabetes, berberine can lower your blood sugars and decrease your insulin needs, so monitoring your blood sugar closely is advised, and adjustments made under the advice of your diabetes physician. - Berberine can lower blood pressure, so taking it with medications that lower blood pressure might cause your blood pressure to go too low. Your blood pressure should be monitored closely. For more information regarding common questions about weight in midlife, watch this short video from our Implementation Engineer, . You will need to copy the following link into your browser to access the video: [email or web address] What is Metformin? Metformin works by improving how your body responds to insulin, reducing the amount of glucose your liver releases, and decreasing insulin resistance. Vitamin B12 Supplementation Metformin can lower the absorption of vitamin B12 in your small intestines. This can sometimes, but not always, lead to vitamin B12 deficiency We recommend including plenty of foods rich in vitamin B12 in your diet, such as eggs, beef, salmon, chicken, and nutritional yeast; and/or taking supplemental B12 may help to prevent a deficiency (especially if you're vegetarian, vegan, or predominantly plant-based, as B12 is most commonly found in animal products). Side effects Gastrointestinal Issues: The most common side effects include a metallic taste, mild nausea, abdominal discomfort, and diarrhea. These are usually mild and can be minimized by taking metformin with food. A rare but serious condition called metformin-associated lactic acidosis can occur, especially if you r e severely dehydrated. Symptoms include stomach discomfort, decreased appetite, rapid breathing, muscle pain, and unusual tiredness. Staying hydrated is crucial, and you should stop taking metformin if you experience severe vomiting or diarrhea. Avoid binge drinking as it can increase the risk of lactic acidosis. Of course, if you have further questions after watching, please reach out and I will be happy to support you. [email or web address] Not available 06/27/2024 13:58:43 08/08/2024 [id number] Any requested follow-up visits are listed below in the Plan of Care section. Go directly to the [facility] materials scheduler at [email or web address] to book a time. To schedule or modify your visit, access the [facility] portal here: [email or web address] Not available 08/08/2024 11:12:42 It was great to see you again! As always, do not hesitate to reach out with any questions. We focused on these items today: 1 . Weight MEDICATION Please see changes to your medication plan below LABS Upload recent labs RESOURCES Here is some more information about what we discussed: Dear Niki, It was great to see you today! Below is a summary of the plan we decided upon together: Body mass index 25-29, overweight - Continue taking metformin 500 mg twice daily; you tolerated the increase without stomach upset. - sample room supervisor your refill to cover the next two months. - Aim for about 100 g of protein daily; try adding a scoop of protein powder blended with berries and spinach or stirred into overnight oats for flavor and fiber. - Keep your daily movement going: neighborhood walks, house projects, antique shop strolls, and active play with your son all count. - Add short ten-minute circuits of body-weight exercises (squats, lunges, planks) or use your ankle weights to boost strength. Counseling - We reviewed the benefits of protein and fiber for weight control and discussed creative ways to make shakes and meals more interesting. - Remember to stay hydrated and watch for any new stomach issues while on metformin; let us know if they occur. If you have any questions or experience any new symptoms, please do not hesitate to reach out to our office. Sincerely, ALEXANDRO KIMBROUGH NP [id number] Not available 08/08/2024 11:12:43 Reason for Referral None Reported. Problems Name Problem SNOMED Code Status Onset Date Resolution Date Notes Provider Name and Address Organization Details Recorded Time Obesity 163548551 Active 025 [place] [address] [address] [facility], [facility] 5 13:10:48 Body mass index 25-29 - overweight 676514806 Active 025 [place] [address] [address] [facility], [facility] 5 13:13:10 Abnormal weight gain 172059686 Active 025 [place] [address] [address] [facility], [facility] 5 13:43:36 Problem Notes None recorded. Procedures Surgical History Date Name Laterality Status Provider Name and Address Organization Details Recorded Time 02/18/2021 Date of Last Pap [place] [address] [address] [place], [place], , [facility] 06/27/2024 13:12:37 Imaging Results None recorded. Procedure Notes None recorded. Medical Equipment None Reported. Allergies Allergen ID Allergen Name Allergen Category Reaction Reaction Severity Criticality Documentation Date Start Date Code Code System Note Provider Name and Address Organization Details Recorded Time 456036 Fish (substanc e) food,medi cation hives Not available high 06/27/20242020 52329 1005 SNOMED Not Available wharton - External Data Service - prod 12:43:18 Medications Name Sig Start Date Stop Date Status Note LastModified by Organization Details LastModified Time metformin 500 mg tablet TAKE 1 TABLET BY MOUTH TWICE DAILY active Not Available Not Available No t Available doxycycline hyclate 100 mg capsule TAKE 1 CAPSULE BY MOUTH TWICE DAILY WITH FOOD UNTIL CLEAR THEN TAKE FOR 5-7 DAYS NEEDED FOR FLARES active Not Available Not Available No t Available spironolacto ne 100 mg tablet TAKE 1&1/2 TABLETS BY MOUTH ONCE DAILY WITH A FULL GLASS OF WATER active Not Available Not Available No t Available oxcarbazepin e 300 mg tablet TAKE 1 TABLET BY MOUTH TWICE DAILY active Not Available Not Available No t Available triamcinolon e acetonide 0.1 % topical cream APPLY TO THE AFFECTED AREAS OF THE ARMS FOR UP TO TWO CONSECUTIVE WEEKS. TAKE A SMALL BREAK AND THEN USE NEEDED FOR FLARES THEREAFTER. AVOID THE FACE, AXILLA AND GROIN. active Not Available Not Available No t Available bupropion HCl XL 300 mg 24 hr tablet, extended release TAKE 1 TABLET BY MOUTH IN THE MORNING active Not Available Not Available Not Available duloxetine 20 mg capsule,rose yed release TAKE 1 CAPSULE BY MOUTH ONCE DAILY IN THE MORNING active Not Available Not Available Not Available duloxetine 60 mg capsule,rose yed release TAKE 1 CAPSULE BY MOUTH ONCE DAILY IN THE EVENING active Not Available Not Available Not Available Trileptal active Not Available Not Kelly ilable Not Available desvenlafaxi ne succinate ER 50 mg tablet,exten ded release 24 hr TAKE 1 TABLET BY MOUTH ONCE DAILY IN THE MORNING active Not Available Not Available Not Available desvenlafaxi ne succinate ER 100 mg tablet,exten ded release 24 hr TAKE 1 TABLET BY MOUTH ONCE DAILY IN THE MORNING active Not Available Not Available Not Available duloxetine 40 mg capsule,rose yed release TAKE 2 CAPSULES BY MOUTH ONCE DAILY FOR A TOTAL OF 80 MG active Not Available Not Available No t Available Wegovy 1.7 mg/0.75 mL subcutaneous pen injector INJECT 3/4 (THREE-FOUR THS ) ML SUBCUTANEOU SLY ONCE A WEEK active Not Available Not Available No t Available Wegovy 1 mg/0.5 mL subcutaneous pen injector INJECT 1/2 (ONE-HALF) ML SUBCUTANEOU SLY ONCE A WEEK active Not Available Not Available No t Available Wegovy 0.25 mg/0.5 mL subcutaneous pen injector INJECT 1/2 (ONE-HALF) ML SUBCUTANEOU SLY ONCE A WEEK active Not Available Not Available No t Available Wegovy 0.5 mg/0.5 mL subcutaneous pen injector INJECT 1/2 (ONE-HALF) MG ONCE A WEEK active Not Available Not Available No t Available Vitals Date Recorded Body height Body mass index (BMI) Body weight Provider Name and Address Organization Details Last Updated DateTime 06/27/2024 171.45 cm 28.1 kg/m2 26923.81 [place] [address] [place], [address], [facility] 06/27/2024 13:30:34 Date Recorded Body height Body mass index (BMI) Body weight Provider Name and Address Organization Details Last Updated DateTime 08/08/2024 171.45 cm 27.5 kg/m2 95014.44 [place] [address] [facility] [address], [facility] 08/08/2024 11:02:19 Social History None recorded. Functional Status Question Answer Note LastModified by Organization D etails LastModified Time What is your level of alcohol consumption? None Information not available 06/27/2024 Mental Status None recorded. Family History Nothing Reported. Medical History Condition Response Anxiety Disorder Y Depression/ depression Y Gynecological History Statement/Question Response Date of Last Pap Smear 02/18/2021 Date of LMP 06/06/2024 Approximate Hormone Replacement Therapy No Obstetrics History GPAL:G 1 P 0 0 0 1 Type Value Living 1 Total 1 Past Encounters Encounter ID Performer Location Encounter Start Date Encounter Closed Date Diagnosis/Indication Diagnosis SNOMED-CT Code Diagnosis ICD10 Code Diagnosis Note [id number] ALEXANDRO KIMBROUGH NP Main Office [address] [place] [address] 06/27/2024 12:42:35 06/28/2024 04:24:20 Health education given 095000075 Z71.9 - Discussed various weight management strategies including over-the-c ounter berberine, metformin, and GLP-1 agonists.- Provided details on medication risks, benefits, and administra tion techniques .- Counseled on dietary modificati ons to support weight reduction and advised uploading recent lab results for review.- Patient understood and agreed to the plan. Body mass index 25-29 - overweight 878811408 E66.3 - Initiated metformin 500 mg once daily for 7 days with instructio n to increase to twice daily thereafter if well tolerated. - Discussed potential gastrointe stinal side effects and advised patient to discontinu e if severe adverse effects or possible allergic reactions occur.- Encouraged continuati on of current high-prote in and high-fiber diet.- Recommende d at least 150 minutes of moderate physical activity per week.- Advised supplement ing with vitamin B12 while on metformin. - Scheduled follow-up in six weeks on August 08 at 10 AM. [id number] ALEXANDRO KIMBROUGH NP Main Office [address] [place] [address] 08/08/2024 10:07:07 08/09/2024 04:31:24 Body mass index 25-29 - overweight 153797354 E66.3 - Body mass index 25-29, overweight - Weight has stabilized with slight reduction on metformin without adverse effects.- Continue metformin 500 mg orally twice daily; prescripti on renewed with one refill for two-month supply. Reviewed potential gastrointe stinal side effects and lactic acidosis warning; patient advised to stay hydrated and report severe symptoms.- Metformin 500 mg orally twice daily with refill- Increase daily protein toward 100 g by incorporat ing protein powder with berries and spinach or in overnight oats; maintain high-fiber foods; continue daily movement and add short ten-minute circuits of body-weigh t exercises using ankle weights.- Telehealth visit scheduled September at 10 AM [facility]. Counseling [id number] Z71 .9 - Counseling , unspecifie d- Provided dietary and exercise counseling to support continued weight reduction and overall metabolic health.- Discussed benefits and practical methods for higher protein and fiber intake; encouraged intermitte nt strength exercises for muscle building and metabolic benefit.- See above detailed recommenda tions on protein shakes, pagan and spinach smoothies, overnight oats, and body-weigh t routines.- Reinforce at next visit. Health Concerns Section Related Observation LastModified by Organization Detai ls LastModified Time None Recorded Concern Status LastModified by Organization Details LastModified Time None Recorded Advance Directives Directive None Recorded Payers Insurance Date Sequence Insurance Name Policy Number Policy Capellan Covered Member ID Capellan Member ID Guarantor Name 08/11/2024 1 [facility] BENEFIT PLAN MANAGEMENT - [facility] [id number] Niki Holly [id number] Niki Holly 06/23/2024 1 *SELF PAY* Ra weber Elayne Notes Date Note Type Note Provider Name and Address Organization Details Recorded Time text/html The patient is a 24-year-old female with a history of anxiety, depression, and non-alcoholic fatty liver disease (NAFLD) presenting for weight management. Weight Management- Current weight: 182 lbs; height: 5'7.5.- Weight gain began approximately 4 years ago, coinciding with the of her son.- Goal weight: 145 lbs; last achieved in high school.- Current lifestyle includes high protein intake and regular physical activity.- No history of thyroid cancer, gallbladder disease, pancreatitis, or eating disorders.- Recent lab work performed within the last year. Non-Alcoholic Fatty Liver Disease (NAFLD)- Diagnosed with NAFLD approximately 2.5 years ago.- Monitored by primary care provider, Dr. Rosalba Thomas.- Initial diagnosis coincided with a diet high in processed foods; has since transitioned to a high-protein diet.- No specialized treatment; managed through lifestyle modifications. Insulin Resistance- Reports a recent insulin level of 21 microU/mL. Allergies- Fish-containing products; last reaction at age 14. Family History- Not discussed. Current Medications and Supplements- Pristiq 100 mg daily.- Trileptal.- Wellbutrin XL 300 mg daily.- Vitamin B12 supplement. Past Medical History- Anxiety.- Depression.- Non-alcoholic fatty liver disease (NAFLD).- Insulin resistance. Past Surgical History- Tubal ligation. Social History- Resides in [place], [place].- Mother to a 4-year-old child.- Denies alcohol consumption. Virtual Visit AttestationModality: VideoProvider Location: Home Patient Location: Home Patient [place]IGHT [place]TAKE - FIRST VISITWeight and body changes symptom severity: ModerateHeight: 68Weight: 180Goal Weight: 145Patient has tried the following weight loss strategies: MedicationsAdditional details below for the weight loss strategies the patient tried:Diets: UnknownPrescription Medications: Semaglutide (Wegovy/Ozempic)Supplement s: UnknownWeight Loss Programs: UnknownSurgeries: UnknownIs the patient currently trying to get or would like to be in the near future? Pablo has been struggling with weight management for 4+ years and is seeking options for medications for weight reduction and improvement of overall health. Current weight: 182 BMI:Goal weight: 145 BMI:Last time at goal weight: in high school 6 years ago Her comorbidities include n/a. Her highest HbA1c was pending. She has previously tried: (DRYWALL APPLICATOR: include medication, duration, outcome for Prior Auths) Her personal history does not include:thyroid cancergallbladder diseasepancreatitisAn eating disorder including anorexia, bulimia, orthorexia, binge or others. Her family history does not include:thyroid cancer Her most recent blood work was on 2023 and revealed: [place] [address] [address], [place], [address], [facility] [employer] 06/27/2024 14:15:08 5 text/html Virtual Visit Attestation Modality: Video Provider Location: Home Patient Location: Home Patient State: [place] Chief complaint: Weight management follow-up while taking metformin. History of present illness hpi: Female presenting for weight management follow-up. Weight management Weight has stabilized and started to trend downward since beginning metformin therapy. - Began metformin 500 mg once daily, tolerated without stomach upset; increased to 500 mg twice daily without gastrointestinal issues. - Baseline weight hovered around 182 1 83 lb; current weight 178 lb (noted brief two-week illness that may have contributed to loss). - Appreciates that weight is no longer increasing. - Protein intake previously 100 g daily; currently averaging 80 9 0 g, seeks ideas to increase variety. - Considers adding protein powder blended with spinach and berries or mixed into overnight oats to boost protein and fiber. - Physical activity consists of frequent housework, neighborhood walks, outings to large [employer] shops (several hours of walking), and recent assembly of a backyard swing set involving heavy lifting; uses ankle weights and intermittently performs body-weight exercises sprinkled throughout the day. Current medications: Metformin 500 mg orally twice daily Allergies: Fish-containing products reaction [place] [address] [address], [place], [address], [facility] 08/08/2024 11:45:47 OBGyn Episode No OBEpisode recorded.
--- OUTSIDE RECORDS SUMMARY | 2024-09-01 22:04 | XMS_ITS | Encounter Summary ---
Author Organization [employer] Address [address] [place] [address] Care Team Providers Care Truck Jumper Name Role Phone Jojo Silva MD Primary Care Provider [phone] Encounter Details Date Type Department Care Team (Late st Contact Info) Description 08/30/2024 External Device Data [facility] ABSTRACTION Provider, Abstract NO ADDRESS ON FILE Social History Tobacco Use Types Packs/Day Years [...] AM CDT documented as of this encounter Plan of Treatment Not on file documented as of this encounter Visit Diagnoses Not on filedocumented in this encounter Care Teams Truck Jumper Relationship Specialty Start Date End Date Jojo Silva MD [address] [place] [address] [email or web address] [address] PCP - General Internal Medicine 08/04/23 documented as of this encounter
[2024-09-01 22:06] VITALS: BP 128/79; PULSE 108; RESP 13; TEMP 36.6; O2SAT 99
--- NOTE | 2024-09-01 22:13 | ECG_ITS ---
Test Date: 2024-09-01 22:16:45 Measurements Intervals [place] Rate: 89 P: 80 RI: 161 QRS: 89 QRSD: 101 T: 46 QT: 347 QTc: 423 Interpretive Statements SINUS RHYTHM POSSIBLE RIGHT VENTRICULAR CONDUCTION DELAY [RSR (QR) IN V1/V2] Compared to ECG 08/27/2024 17:59:55 no change Electronically Signed On 09-02-2024 12:47:29 CDT by Terrell Andres M.D.
--- OUTSIDE RECORDS SUMMARY | 2024-09-02 02:25 | XMS_ITS | Clinical Summary ---
Author Organization [facility] [employer] [place] Address [address] [facility] [address] Care Team Providers Care Program Writer Name Role Phone Jojo Silva MD Primary Care Provider [phone] Allergies Active Allergy Reactions Criticality Noted Date [...] mg by mouth 2 times daily. Per [facility] team. 04/02/2024 Active desvenlafaxine (PRISTIQ) 50 mg [...] STL ABSTRACTION Provider, Abstract 08/30/2024 Patient Self-Triage [facility] [address] [place] [id number] 08/23/2024 External Device Data STL ABSTRACTION Provider, Abstract 08/16/2024 External Device Data STL ABSTRACTION Provider, Abstract 07/26/2024 External Device Data STL ABSTRACTION Provider, Abstract 07/22/2024 External Device Data STL ABSTRACTION Provider, Abstract 07/21/2024 Results Follow-Up [facility] [address] [place] [address] Jojo Silva MD VITAMIN D 25 HYDROXY, TSH REFLEXIVE, CBC WITH DIFFERENTIAL, Additional followed-up results: 2 07/20/2024 External Device Data STL ABSTRACTION Provider, Abstract 07/19/2024 8:20 AM CDT Procedure visit [facility] [place] [address] [place] [address] Screening for condition; Thyroid function test abnormal 07/19/2024 External Device Data STL ABSTRACTION Provider, Abstract 06/27/2024 10:00 AM CDT Office Visit [facility] [address] [place] [address] Rosalba Thomas, VICKI Hunger pain, initial encounter [...] (07/19/2024 8:14 AM CDT) TSH 1.33 mIU/L [facility] [place] Comment: Reference Range > or = 20 Years 0.40-4.50 Ranges First trimester 0.26-2.66 Second trimester 0.55-2.73 Third trimester 0.43-2.91 Test Performed at: [facility] [address] [place] [address] Linn Livingston Blood 07/19/2024 8:14 AM CDT 07/20/2024 3:04 AM CDT us Jojo Silva MD CHEMISTRY ORDERABLES Final Res ult [facility] [phone] [facility] [address] [place] [address] * (ABNORMAL) CBC WITH DIFFERENTIAL (07/19/2024 8:14 AM CDT) WBC 7.4 3.8 - 10.8 Thousand/ uL [facility] [place] RBC 3.96 3.80 - 5.10 Million/u L [facility] [place] HEMOGLOBIN 12.4 11.7 - 15.5 [...] [facility] [place] Comment: Test Performed at: [facility] [address] [place] [address] Linn Livingston Blood 07/19/2024 8:14 AM CDT 07/20/2024 3:04 AM CDT us Jojo Silva MD HEMATOLOGY ORDERABLES Final Re sult [facility] [phone] [facility] [address] [place] [address] * VITAMIN D 25 HYDROXY (07/19/2024 8:14 AM CDT) VITAMIN D, 25 OH, TOTAL 35 30 - 100 ng/mL [facility] Comment: Vitamin D Status 25-OH Vitamin D: Deficiency: <20 ng/mL Insufficiency: 20 - 29 ng/mL Optimal: > or = 30 ng/mL For 25-OH Vitamin D testing on patients on D2-supplementation and patients for whom quantitation of D2 and D3 fractions is required, the QuestAssureD() 25-OH VIT D, (D2,D3), LC/MS/MS is recommended: order code [id number] (patients >2yrs). See Note 1 Note 1 For additional information, please refer to http://education.MysteryD/faq/LCD321 (This link is being provided for informational/ educational purposes only.) Test Performed at: [facility] [address] [address] [place] [address] Linn Livingston MD Blood 07/19/2024 8:14 AM CDT 07/20/2024 3:03 AM CDT us Jojo Silva MD CHEMISTRY ORDERABLES Final Res ult [facility] [phone] [facility] [address] [address] [address] * LIPID PANEL (07/19/2024 8:14 AM CDT) CHOLESTEROL 125 <200 mg/dL [facility] HDL 50 > OR = 50 mg/dL [facility] TRIGLYCERIDE 61 <150 mg/dL [facility] LDL CALCULATED 61 mg/dL (calc) [facility] Comment: Reference range: <100 Desirable range <100 mg/dL for primary prevention; <70 mg/dL for patients with CHD or diabetic patients with > or = 2 CHD risk factors. LDL-C is now calculated using the Anabella calculation, which is a validated novel method providing better accuracy than the Friedewald equation in the estimation of LDL-C. Bryn HAYNES et al. MERCY. 2013;310(19): 0987-7950 (http://education.MysteryD/faq/CGI451) CHOL/HDL RATIO 2.5 <5.0 (calc) [facility] [place] NON-HDL CHOLESTEROL 75 <130 mg/dL (calc) [facility] Comment: For patients with diabetes plus 1 major ASCVD risk factor, treating to a non-HDL-C goal of <100 mg/dL (LDL-C of <70 mg/dL) is considered a therapeutic option. Test Performed at: [facility] [address] [place] [address] AnahiGloria Price Blood 07/19/2024 8:14 AM CDT 07/20/2024 3:04 AM CDT us Jojo Silva MD CHEMISTRY ORDERABLES Final Res ult [facility] [phone] [facility] [address] [place] [address] * COMPREHENSIVE METABOLIC PANEL (07/19/2024 8:14 AM CDT) GLUCOSE 79 65 - 99 mg/dL [facility] Comment: Fasting reference interval BUN 15 7 - 25 mg/dL [facility] CREATININE 0.77 0.50 - 0.96 mg/dL [facility] GFR 110 > OR = 60 mL/min/1. 73m2 [facility] BUN/CREAT RATIO SEE NOTE: 6 - 22 (calc) [facility] [place] Comment: Not Reported: BUN and Creatinine are within reference range. SODIUM 136 135 - 146 mmol/L [facility] [place] POTASSIUM 3.9 3.5 - 5.3 mmol/L [facility] [place] CHLORIDE 100 98 - 110 mmol/L [facility]iel Jaime crystal [place] CO2 27 20 - 32 mmol/L [facility] [place] CALCIUM 9.1 8.6 - 10.2 mg/dL [facility] [place] TOTAL PROTEIN 7.4 6.1 - 8.1 g/dL [facility] ALBUMIN 4.5 3.6 - 5.1 g/dL [facility] GLOBULIN 2.9 1.9 - 3.7 g/dL (calc) [facility] [place] ALBUMIN/GLOBULIN RATIO 1.6 1.0 - 2.5 (calc) [facility] [place] BILIRUBIN TOTAL 0.4 0.2 - 1.2 mg/dL [facility] ALKALINE PHOSPHATASE 44 31 - 125 U/L [facility] [place] AST 15 10 - 30 U/L [facility] [place] ALT 14 6 - 29 U/L [facility] [place] Comment: Test Performed at: [facility] [address] [address] [place] [address] Linn Livingston Blood 07/19/2024 8:14 AM CDT 07/20/2024 3:04 AM CDT us Jojo Silva MD CHEMISTRY ORDERABLES Final Res ult [facility] [phone] [facility] [address] [address] [place] [address] from Last 3 Months Insurance ALLEGIANCE OPEN ACCESS ALLEGIANCE OPEN ACCESS Care Teams Program Writer Relationship Specialty Start Date End Date Jojo Silva MD [address] [place] [phone] PCP - General Internal Medicine 08/04/23
--- OUTSIDE RECORDS SUMMARY | 2024-09-02 02:25 | XMS_ITS | Encounter Summary ---
Author Organization [facility] Address [address] [place] [address] Care Team Providers Care Puff Ironer Name Role Phone Jojo Silva MD Primary Care Provider [phone] Encounter Details Date Type Department Care Team (Late st Contact Info) Description 07/21/2024 Results Follow-Up [facility] [employer] [place] [address] [email or web address] [address] Jojo Silva MD [address] [place] [address] VITAMIN D 25 HYDROXY, TSH [...] on filedocumented in this encounter Care Teams Puff Ironer Relationship Specialty Start Date End Date Jojo Silva MD [address] [place] [phone] PCP - General Internal Medicine 08/04/23 documented as of this encounter
--- OUTSIDE RECORDS SUMMARY | 2024-09-02 02:25 | XMS_ITS | Patient Health Record ---
Author Organization [facility] [employer] Address [address] [address] Care Team Providers Care Advertising Agency Manager Name Role Phone Fernando Jeffries Unavailable [phone] Allergies Allergen (clinical drug ingredient) Drug/Non Drug [...] 11/05/2023 Encounters Encounter Location Date Provider Diagnosis [employer] [facility], [address] [address] [place] [address] 11/05/2023 Fernando Clubb ALBERT (generalized anxiety disorder) F41.1 [facility] [employer] [facility] [address] [place] [address] 11/05/2023 Fernando Clubb [facility] [address] [place] [address] 11/05/2023 Fernando Clubb [facility] [employer] [facility] [address] [place] [address] 11/05/2023 Fernando Clubb [facility] [address] [place] [address] 11/05/2023 Fernando Clubb [facility] [employer] [facility] [address] [place] [address] 07/05/2024 Fernando Clubb Assessments Encounter Date Diagnosis [...] Insured Coverage Start Date Coverage End Date [facility] [address] [place] [address] [id number] Niki Holly Self - patient is the [...]
== END 2024-09-02 02:00 | disposition left against medical advice (07) ==
PROVIDERS: Emergency Provider Student in an Organized Health Care Education/Training Program; PCP Nurse Practitioner Adult Health
DX: R07.9 Chest pain, unspecified (principal)
CPT/HCPCS: 71046; 93005; 99199

== ENCOUNTER 2024-11-24 19:02 | Emergency (ER) | payer OTHER, SELFPAY ==
--- OUTSIDE RECORDS SUMMARY | 2024-11-24 19:04 | XMS_ITS | Clinical Summary ---
Author Organization [facility] [employer] MD Address [address] [facility] [address] Care Team Providers Care Tie Hacker Name Role Phone Jojo Silva MD Primary Care Provider [phone] Allergies Active Allergy Reactions Criticality Noted Date [...] mg by mouth 2 times daily. Per [facility] team. 04/02/2024 Active desvenlafaxine (PRISTIQ) 50 [...] reports fatty liver on CT abd 2022 [facility] Encounters Date Type Department Care Team Description 11/01/2024 External Device Data STL ABSTRACTION Provider, Abstract 10/19/2024 External Device Data STL ABSTRACTION Provider, Abstract 10/18/2024 External Device Data STL ABSTRACTION Provider, Abstract 10/05/2024 External Device Data STL ABSTRACTION Provider, Abstract 10/04/2024 External Device Data STL ABSTRACTION Provider, Abstract 09/14/2024 External Device Data STL ABSTRACTION Provider, Abstract 09/14/2024 External Device Data STL ABSTRACTION Provider, Abstract 09/14/2024 External Device Data STL ABSTRACTION Provider, Abstract 08/30/2024 External Device Data STL ABSTRACTION Provider, Abstract 08/30/2024 Patient Self-Triage [facility] [address] [place] [place] [phone] from Last 3 Months Immunizations Immunization Administration Dates Next Due (COMRINATY 2024-)(12YR UP) COVID-19 VACCINE, MRNA (PF)30 MCG/0.3 ML, IM SYRINGE 12/17/2023 (GARDASIL 9)(9-45 YRS) HUMAN PAPILLOMAVIRUS VACCINE, [...] Name Comments Unknown Brother Depression Father Kenna Couch Domenica Unknown Maternal Grandfather Breast Cancer Maternal Grandmother Gabriela Diana Colon Cancer Maternal Grandmother Gabriela Diana Liver Cancer Maternal Grandmother Gabriela Diana Diabetes Mother Gabriela Diana Stroke Mother Gabriela Diana Unknown Paternal Grandfather Unknown Paternal Grandmother No [...] VACCINES (2 - 3-dose series) 05/22/2024 04/24/19 25 INFLUENZA VACCINE (#1) 2024 , 11/30/2019, 12/13/2018 DTAP/TDAP/TD VACCINES (2 - T d or Tdap) 08/03/2030 08/03/2020 COVID-19 Vaccine Completed 12/17/2023 Insurance ALLEGIANCE OPEN ACCESS [facility] OPEN ACCESS Care Teams Tie Hacker Relationship Specialty Start Date End Date Jojo Silva MD [address] [place] [address] [place] [address] PCP - General Internal Medicine 08/04/23
--- OUTSIDE RECORDS SUMMARY | 2024-11-24 19:04 | XMS_ITS | Clinical Summary ---
Author Organization [facility] [address] Address [address] [place] [address] Care Team Providers Care Skiing Instructor Name Role Phone No, Physician Primary Care Provider [phone] Allergies No known active allergies Medications spironolactone (ALDACTONE) 100 mg tablet Take 1 tablet (100 mg total) by mouth daily Active desvenlafaxine ER (PRISTIQ) 100 mg 24 hr tablet Take 1 tablet (100 mg total) by mouth daily 09/14/2024 Active buPROPion XL (WELLBUTRIN XL) 300 mg 24 hr tablet Take 1 tablet (300 mg total) by mouth every morning Active Active Problems Problem Noted Date Diagnosed Date Dysautonomia 10/03/2024 Encounters Date Type Department Care Team Description 09/30/2024 11:30 AM CDT Office Visit [place] Development at [address] [address] Siri Trevizo NP Dysautonomia (HCC) (Primary Dx) from Last 3 Months Social History Tobacco Use Types Packs/Day Years Used Date Smoking Tobacco: Never Smokeless Tobacco: Never Tobacco Cessation:Counseling Given: No Comments No Sex and Gender Information Value Date Recorded Sex Assigned at Not on file 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 Gender Identity Not on file Sexual Orientation Not on file Obstetrics History Last Filed Vital Signs Vital Sign Reading Time Taken Comments Blood Pressure 107/69 09/30/2024 11:21 AM CDT Pulse 74 09/30/2024 11:21 AM CDT Temperature - - Respiratory Rate 18 09/30/2024 11:21 AM CDT Oxygen Saturation - - Inhaled Oxygen Concentration - - Weight 81.6 kg (180 lb) 09/30/2024 11:21 AM CDT Height 172.7 cm (5' 8) 09/30/2024 11:21 AM CDT Body Mass Index 27.37 09/30/2024 11:21 AM CDT Plan of Treatment Health Maintenance Due Date Last Done Comments Cervical Cancer Screening 1999 Depression Screening 1999 Hepatitis C Screening 1999 DTaP/Tdap/Td Vaccine (1 - Tdap) 2010 Varicella Vaccines (1 of 2 - 13+ 2-dose series) 2012 Regular Well Visit/Exam 18-64 2017 HPV Vaccines (3 - 3-dose series) 07/17/2024 04/24/2024, 08/10/2023 Influenza Vaccine (#1) 2024 , 11/30/2019, 12/13/2018 Covid-19 Vaccine Completed 12/17/2023, 12/24/2020 Hepatitis B Screening Completed 04/24/2024 , 08/10/2023 Pneumococcal vaccine <65 Aged Out No longer eligible based on patient's age to complete this topic Insurance [employer] AG[place]AR [id number] Care Teams Skiing Instructor Relationship Specialty Start Date End Date No, Physician PCP - General 02/03/20
--- OUTSIDE RECORDS SUMMARY | 2024-11-24 19:04 | XMS_ITS | Patient Health Record ---
Author Organization [facility] Address [address] [facility] [address] [place] [address] Care Team Providers Care Magnetic Resonance Imaging Coordinator Name Role Phone Fernando Jeffries Unavailable [phone] Allergies Allergen (clinical drug ingredient) Drug/Non Drug Allergy documented on EMR Reaction Allergy Type Onset Date Status fish oils Fish Oil Unknown Drug Allergy Active Reason For Referral No Information Medications Medication SIG (Take, Route, Frequency, Duration) Notes Start Date End Date Status DULoxetine HCl 60 MG Capsule Delayed Release Particles 1 capsule in the morning Oral Once a day Active Spironolactone 100 MG Tablet Oral; Duration: 90 Days Active Wegovy 1 MG/0.5ML Solution Auto-injector Subcutaneous; Duration: 28 Days Active Social History Tobacco Use: Social History Observation Description Date Details (start date - stop date) Never Smoker NA - NA Sex Assigned At : Social History Observation Description Sex Assigned At Female Social History Miscellaneous: Social Info Question Answer Notes Safety issues: Are there any firearms in the house? No Social History Social Info Question Answer Notes Household: Marital Status: Number of Adults in household: 2 Number of Children in Household: 1 Level of Education: Not Finished College Drug/Alcohol: Social Info Question Answer Notes AUDIT-C (Standard) Points 2 Interpretation Positive Did you have a drink contain ing alcohol in the past year? Yes How often did you have six or more drinks on one occasion in the past year? Less than monthly (1 point) How many drinks did you have on a typical day when you were drinking in the past year? 1 or 2 drinks (0 point) How often did you have a drink containing alcohol in the past year? Monthly or less (1 point) Tobacco Use: Social Info Question Answer Notes Tobacco Control (Standard) Tobacco use: Nonsmoker Additional Details Category Social Info Options Details Miscellaneous: Occupation: Digital Design Engineer Encounters Encounter [facility] Date [email or web address] [address] [place] [address] 07/05/2024 Fenrando Jeffries Plan Of Treatment Pending Test Test Name Order Date UDT 11/05/2023 Insurance Providers Payer Name Payer Address Payer Phone Subscriber Number Group Number Insured Name Patient Relationship to Insured Coverage Start Date Coverage End Date [facility] [address] [place] [address] [id number] Niki Holly Self - patient is the [...]
[2024-11-24 19:27] VITALS: BP 130/113; PULSE 80; RESP 18; TEMP 37; O2SAT 99
[2024-11-24 20:06] VITALS: BP 135/78; PULSE 79; RESP 20; O2SAT 100
[2024-11-24 20:15] LABS: BEDSIDEPREGUCG Negative (Negative)
[2024-11-24 20:21] LABS: Hematocrit 36.1 % (37.0-47.0); Hemoglobin 12.0 g/dL (12.0-15.0); Immature Granulocyte Percent A 0.3 % (0-0.5); Lymphocytes Absolute Auto 2.44 K/mm3 (0.9-3.2); Mean Corpuscular HGB Conc 33.2 g/dl (32-36); Mean Corpuscular Hemoglobin 30.5 pg (26-34); Mean Corpuscular Volume 91.9 fl (80-100); Nucleated Red Blood Cells Absolute Auto 0.000 K/mm3 (0.0-0.012); Nucleated Red Blood Cells Perc 0.0 % (0.0-0.2); Platelet Count Result 266 k/mm3 (150-375); Red Blood Count 3.93 M/mm3 (4.2-5.4); White Blood Count 11.5 K/mm3 (4.5-10.0)
[2024-11-24 20:24] LABS: Add Urine Microscopic? YES; Appearance Urine Clear (Clear); Glucose Urine UA Negative (Negative); Leukocyte Esterase Ur 2+ LEU/UL (Negative); Nitrate Urine Negative (Negative); Non Pathogenic Casts 0-2; Specific Grav Ur 1.007 (1.001-1.035)
--- NOTE | 2024-11-24 20:30 | ED_ITS ---
HPI - General Adult General Chief complaint: Abdominal Pain Stated complaint: ABD PAIN X 2D Time Seen by Provider: 11/24/24 20:13 History of Present Illness HPI narrative: This is a 24-year-old female who just started wegovy 7days ago presenting with abdominal pain. Patient says she has been having diffuse crampy abdominal pain associated with bloating and alternating diarrhea constipation for the last several days. She has had some nausea but no vomiting. She is still passing gas. She has not taken any stool softeners. Related Data Home Medications ?Medication ?Instructions ?Recorded ?Confirmed ?Last Taken ?Type spironolactone 100 mg tablet 100 mg PO DAILY 01/20/24 02/03/24 Unknown History Allergies Allergy/AdvReac Type Severity Reaction Status Date / Time Fish Containing Products Allergy Itching Verified 11/24/24 19:02 [facility] Past Medical History Medical History Overweight (BMI 25.0-29.9) Unwanted fertility Surgical History Surgical History No pertinent past surgical history Family History Family History Mother Diabetes 1.5, managed as type 1 Sibling Hypoglycemia Father Eczema Social History Social History Smoking status: Never smoker Second hand tobacco smoke exposure: No Substance use: current Substance use type: marijuana Other substance usage details: vape pen Last use: 01/20/24 Living arrangements: with family Additional living arrangements comments: with and son Gender identity (if verbalized by the patient): Female Spiritual care concerns: No Exam 2 Narrative: APPEARANCE: No apparent distress. Well appearing Head: atraumatic. EYES: EOMI, NOSE: Atraumatic NECK: Trachea midline RESPIRATORY: No increased rate of breathing clear to auscultation CARDIOVASCULAR: RRR, clear to auscultation ABDOMINAL: Non-distended soft nontender no guarding or rebound MUSCULOSKELETAl: No obvious deformities NEURO: Alert. Moving 4/4 extremities SKIN:: Warm, dry. Normal color PSYCHIATRIC: Normal affect Course Vital Signs Vital signs: Vital Signs Temperature 98.6 F 11/24/24 19:27 Pulse Rate 80 11/24/24 19:27 Respiratory Rate 18 11/24/24 19:27 Blood Pressure 130/113 H 11/24/24 19:27 Pulse Oximetry 99 11/24/24 19:27 Oxygen Delivery Room Air 11/24/24 19:27 Temperature 98.6 F 11/24/24 19:27 Pulse Rate 79 11/24/24 20:06 Respiratory Rate 20 11/24/24 20:06 Blood Pressure 135/78 11/24/24 20:06 Pulse Oximetry 100 11/24/24 20:06 Oxygen Delivery Room Air 11/24/24 19:27 Medical Decision Making MDM Narrative Medical decision making narrative: -Course: 24-year-old female who started will go be 7 days ago now presenting with GI complaints. Patient has diffuse crampy pain. Alternating diarrhea and constipation. Patient states that she feels constipated and bloated. Her vital signs are stable. Her abdominal exam is benign. We discussed possible etiologies as such as a medication side effect from go be versus constipation. Patient will be discharged with stool softeners and given primary care follow- up. Given return precautions for fevers, severe abdominal pain, inability to pass gas, or persistent nausea vomiting. -DDX includes but is not limited to: Medication side effect, IBS, constipation, gastroenteritis, gallbladder disease, appendicitis, colitis -Co-morbidities complicating care: Wegovy use, anxiety/depression -Independent interpretation of studies: White count 11.5. Hemoglobin 12 Urinalysis showed 21-50 white blood cells and +2 leuk esterase. Patient states that every time she goes to a doctor she is told she has urinary tract infection. She does not have any dysuria urgency or frequency. We will not give antibiotics at this time and await culture results. I did not believe her symptoms are due to UTI. -Dx tests considered but not ordered: CT abdomen pelvis -patient has a benign abdominal exam, is a young female and presentation most consistent with constipation/IBS. Shared decision making with patient and we have opted against getting a CT abdomen pelvis. Vital Signs Vital Signs: Vital Signs Temperature 98.6 F 11/24/24 19:27 Pulse Rate 80 11/24/24 19:27 Respiratory Rate 18 11/24/24 19:27 Blood Pressure 130/113 H 11/24/24 19:27 Pulse Oximetry 99 11/24/24 19:27 Oxygen Delivery Room Air 11/24/24 19:27 Temperature 98.6 F 11/24/24 19:27 Pulse Rate 79 11/24/24 20:06 Respiratory Rate 20 11/24/24 20:06 Blood Pressure 135/78 11/24/24 20:06 Pulse Oximetry 100 11/24/24 20:06 Oxygen Delivery Room Air 11/24/24 19:27 Lab Data 11/24/24 20:13 11/24/24 20:13 Labs: Lab Results 11/24/24 Range/Units 20:13 WBC 11.5 H (4.5-10.0) K/mm3 RBC 3.93 L (4.2-5.4) M/mm3 Hgb 12.0 (12.0-15.0) g/dL Hct 36.1 L (37.0-47.0) % MCV 91.9 (80-100) fl MCH 30.5 (26-34) pg MCHC 33.2 (32-36) g/dl RDW 11.9 (11.5-14.5) % Plt Count 266 (150-375) k/mm3 MPV 9.7 (7.4-10.4) fl Immature Gran % (Auto) 0.3 (0-0.5) % Neut % (Auto) 72.3 (45.5-73.1) % Lymph % (Auto) 21.3 (18.3-44.2) % Glenn % (Auto) 4.6 (2.6-8.5) % Eos % (Auto) 1.1 (0-4.4) % Baso % (Auto) 0.4 (0.2-1.2) % Lymph # (Auto) 2.44 (0.9-3.2) K/mm3 Glenn # (Auto) 0.5 (0.1-0.6) K/mm3 Eos # (Auto) 0.1 (0-0.3) K/mm3 Baso # (Auto) 0.1 (0.0-0.1) K/mm3 Abs Immat Gran (auto) 0.04 H (0.00-0.031) K/mm3 Absolute Neuts (auto) 8.3 H (1.3-6.7) K/mm3 Absolute Nucleated RBC 0.000 (0.0-0.012) K/mm3 Nucleated RBC % 0.0 (0.0-0.2) % Sodium Pending Potassium Pending Chloride Pending Carbon Dioxide Pending Anion Gap Pending BUN Pending Creatinine Pending Estim Creat Clear Calc Pending Estimated GFR Pending Glucose Pending Calcium Pending Total Bilirubin Pending AST Pending ALT Pending Alkaline Phosphatase Pending Total Protein Pending Albumin Pending Lipase Pending Urine Color Yellow (Yellow) Urine Appearance Clear (Clear) Urine pH 5.5 (5.0-9.0) Ur Specific [place] 1.007 (1.001-1.035) Urine Protein Negative (Negative) mg/dL Urine Glucose (UA) Negative (Negative) mg/dL Urine Ketones Negative (Negative) mg/dL Ur Blood (Man) Negative (Negative) Urine Nitrate Negative (Negative) Urine Bilirubin Negative (Negative) Urine Urobilinogen 0.2 (<2.0) mg/dL Leukocyte Esterase Rfl 2+ H (Negative) SANDHYA/UL Urine RBC 0-2 (0-2) /hpf Urine WBC 21-50 H (0-3) /hpf Ur Squamous Epith Cells Occasional (Few) /hpf Urine Bacteria None seen /hpf Urine Casts 0-2 POC Urine HCG, Qual Negative (Negative) Discharge Plan Discharge Clinical Impression: Abdominal pain Patient Disposition: Home Condition: Stable Instructions: Antibiotic Form, Abdominal Pain (ED) Additional Instructions: You were seen in the emergency department for abdominal pain. This may be due to constipation or possibly a side effect from the wegovy. Please use docusate and senna for constipation. Please follow-up with your primary care physician 3-5 days. Return to ED if you develop fevers, severe abdominal pain, inability to pass gas, or intractable nausea vomiting. Patient Language: Czech Prescriptions: New docusate calcium 240 mg capsule 240 mg PO DAILY Qty: 30 0RF sennosides [Senna Laxative] 8.6 mg tablet 8.6 mg PO DAILY Qty: 30 0RF No Action spironolactone 100 mg tablet 100 mg PO DAILY Follow-up/Referrals: William,Rosalba Nunes APRN [Primary Care Provider, Unknown]
[2024-11-24 20:33] LABS: Alanine Aminotransferase 23 U/L (6-35); Albumin Level 4.5 g/dL (3.5-5.1); Alkaline Phosphatase 45 U/L (38-126); Anion Gap 7 mmol/L (4-12); Aspartate Amino Transferase 26 U/L (14-36); Bilirubin,Total 0.4 mg/dL (0.2-1.3); Blood Urea Nitrogen 9 mg/dL (7-17); Calcium 8.9 mg/dL (8.4-10.2); Carbon Dioxide 28 mmol/L (22-30); Chloride 104 mmol/L (98-107); Estimated Glomerular Filt Rate > 60; Glucose 81 mg/dL (65-110); Lipase 269 U/L (23-300); Potassium 4.2 mmol/L (3.4-5.0); Sodium 139 mmol/L (137-145); Total Protein 8.2 g/dL (6.3-8.2)
== END 2024-11-24 21:00 | disposition home or self-care (01) ==
LOC: ANHED 20:51
PROVIDERS: Registered Nurse; Emergency Provider Emergency Medicine; PCP Nurse Practitioner Adult Health
DX: R10.9 Unspecified abdominal pain (principal); Z79.899 Other long term (current) drug therapy
CPT/HCPCS: 36415; 80053; 81001; 81025; 83690; 85025; 87077; 87086; 87186; 99283